=== PATIENT | female | born 1970 | race Caucasian/White ===

== ENCOUNTER 2021-04-05 08:32 | Emergency (ER) | payer OTHER, SELFPAY ==
[2021-04-05 08:40] VITALS: BP 126/77; PULSE 89; RESP 20; TEMP 37.6; O2SAT 98
--- NOTE | 2021-04-05 09:39 | ED.EAR ---
HPI - Ear Problem General Chief complaint: Ear Stated complaint: ear pain Source: patient and RN notes reviewed Mode of arrival: ambulatory History of Present Illness HPI Narrative: This is a 51-year-old female who presented to urgent care complaints bilateral ear pain more severe in the left ear, congestion that started yesterday. Patient did not do anything at home to relieve her symptoms. The patient denies SOB, CP, palpitation, extremity numbness, lightheadedness, dizziness, constipation, decreased hearing, ear discharge, foreign body, diarrhea, chills, or fever. Related Data Allergies Allergy/AdvReac Type Severity Reaction Status Date / Time No Known Allergies Allergy Verified 04/05/21 09:28 Review of Systems Review of Systems: A 14 organ system Review of Systems was performed and pertinent positives included in the HPI, otherwise remaining ROS is negative. [facility] Family History Family History (Updated 04/05/21 @ 09:40 by REJI Dejesus) Other Family history non-contributory Social History Social History Smoking status: Never smoker Alcohol intake: current Exam Narrative: GENERAL: This is a well-nourished, well-developed patient, in no apparent distress. HEAD: normocephalic, atraumatic. EYES: PERRL. Sclera clear/white. Vision is grossly intact. EARS: External ears normal, auditory canals clear and without drainage, TMs erythematous without perforation. Hearing grossly intact. NOSE: External nose normal with no obvious nasal discharge, nares without redness, no rhinorrhea. THROAT: Mucous membranes moist, posterior pharynx clear. NECK: Neck supple, non-tender without lymphadenopathy, masses or thyromegaly. CARDIOVASCULAR: Regular rate and rhythm without murmurs, gallops, or rubs. RESPIRATORY: Clear to auscultation. Breath sounds equal bilaterally. No wheezes, rales, or rhonchi. GASTROINTESTINAL: Abdomen soft, non-tender, nondistended. Bowel sounds are active. No hepato-splenomegaly, or palpable masses. No guarding. SKIN: warm, intact with no suspicious lesions or rash, good texture and turgor. NEURO: awake, alert, and oriented to person, place and time. There were no obvious focal neurologic abnormalities. Steady gait EXTREMITIES: Normal range of motion. No edema. No calf tenderness. Negative Homans sign bilaterally. BACK: Nontender without deformity or crepitance. No flank tenderness. Course Course Emergency Course: Patient will be treated with Augmentin for otitis media to the left ear, she will also be given Tessalon Perles, guaifenesin, Flonase for congestion Vital Signs Vital signs: Vital Signs Temperature 99.6 F 04/05/21 08:40 Pulse Rate 89 04/05/21 08:40 Respiratory Rate 20 04/05/21 08:40 Blood Pressure 126/77 04/05/21 08:40 Pulse Oximetry 98 04/05/21 08:40 Temperature 99.6 F 04/05/21 08:40 Pulse Rate 89 04/05/21 08:40 Respiratory Rate 20 04/05/21 08:40 Blood Pressure 126/77 04/05/21 08:40 Pulse Oximetry 98 04/05/21 08:40 Medical Decision Making Differential Diagnosis Differential Diagnosis: Otitis media, otitis externa, sinusitis Vital Signs Vital Signs: Vital Signs Temperature 99.6 F 04/05/21 08:40 Pulse Rate 89 04/05/21 08:40 Respiratory Rate 20 04/05/21 08:40 Blood Pressure 126/77 04/05/21 08:40 Pulse Oximetry 98 04/05/21 08:40 Temperature 99.6 F 04/05/21 08:40 Pulse Rate 89 04/05/21 08:40 Respiratory Rate 20 04/05/21 08:40 Blood Pressure 126/77 04/05/21 08:40 Pulse Oximetry 98 04/05/21 08:40 Discharge Plan Discharge Clinical Impression: Otitis media Qualifiers: Otitis media type: unspecified Chronicity: acute Qualified Code(s): H66.90 - Otitis media, unspecified, unspecified ear Patient Disposition: Home, Self-Care Condition: Stable Instructions: Antibiotic Form, Ear Infection (ED) Additional Instructions: Take all medicat
== END 2021-04-05 09:55 | disposition home or self-care (01) ==
PROVIDERS: Emergency Provider Nurse Practitioner
DX: H66.93 Otitis media, unspecified, bilateral (principal)
CPT/HCPCS: 99213; G0463

== ENCOUNTER 2021-08-28 08:02 | Emergency (ER) | payer OTHER, SELFPAY ==
--- NOTE | 2021-08-28 08:09 | ED.URI ---
HPI - URI/Sore Throat General Chief Complaint: Upper Respiratory Infection Stated Complaint: Cough Time Seen by Provider: 08/28/21 08:21 Source: patient, RN notes reviewed and old records reviewed Mode of arrival: ambulatory Limitations: no limitations History of Present Illness HPI Narrative: 51-year-old female who presents to [facility] care with complaints of cough especially at nighttime which is keeping her awake since Monday. Patient reports she has been taking DayQuil and NyQuil and some Tylenol, denies any known fevers chills or sweats. Patient denies any shortness of breath or any known wheezing reports she is expectorating some greenish tinged phlegm.Patient has had COVID and has had immunizations, no flu shot taken. Patient did take home COVID test yesterday which was negative. MD elicited complaint: cough and nasal congestion Onset (ago): day(s) (3 days) Consistency: constant Description of mucous: green Able to tolerate fluids by mouth: Yes Exacerbating factors: exertion Relieving factors: nothing Treatments prior to arrival: acetaminophen and cold medicine Related Data Allergies Allergy/AdvReac Type Severity Reaction Status Date / Time No Known Allergies Allergy Verified 04/05/21 09:28 Review of Systems Review of Systems: CONSTITUTIONAL: Denies fever, chills, or sweats. EYES: Denies visual changes, redness, or discharge. ENT: Positive rhinorrhea, congestion,no sore throat, or otalgia. CARDIOVASCULAR: Denies chest pain, palpitations, or edema. RESPIRATORY: positive cough denies dyspnea. GASTROINTESTINAL: Denies abdominal pain, nausea, vomiting, or diarrhea. GENITOURINARY: Denies dysuria or hematuria. SKIN: Denies rash or itching. MUSCULOSKELETAL: Denies back pain, joint pain, or myalgia. NEUROLOGIC: Denies headache, numbness, or weakness. PSYCHIATRIC: Denies anxiety or depression. All systems reviewed & are unremarkable except as noted in HPI and below PMFSH Past Medical History Medical History (Updated 08/28/21 @ 08:33 by Kylee Camacho NP) COVID-19 05/2019 Right arm fracture surgical repair Surgical History Surgical History (Updated 08/28/21 @ 08:17 by Kylee Camacho NP) Previous section Total knee replacement status right Family History Family History (Updated 12/27/21 @ 09:40 by REJI Dejesus) Other Family history non-contributory Social History Social History (Updated 08/28/21 @ 08:44 by Kylee Camacho NP) Smoking status: Never smoker Alcohol intake: current Substance use type: does not use Living arrangements: with family Gender identity (if verbalized by the patient): Female Comments At time of signature, agree with nursing past medical, surgical, social and family history. There is no relevant family history pertinent to the presenting complaint Exam Narrative: GENERAL: Well-appearing, well-nourished, and in no acute distress. HEAD: Normocephalic, atraumatic. EYES: PERRLA and EOMI. ENT: Nares red with clear rhinorrhea no epistaxis. Mucous membranes moist.throat minimal redness with no tonsil enlargement or lesions,post nasal drainage noted. NECK: Supple.no lymphadenopathy CHEST: Clear to auscultation. No respiratory distress.SAO2 98% on room air, cough productive at times unable to rest due to cough. HEART: Regular rate and rhythm. No murmur heard. Normal peripheral pulses. ABDOMEN: Soft, nontender, nondistended, normal active bowel sounds. EXTREMITIES: Normal range of motion. No edema. SKIN: Warm, dry, no rash. NEURO: No focal deficits. Alert and oriented x3. Course Course Level of Care: Express Care Visit Vital Signs Vital signs: Vital Signs Temperature 36.8 C 08/28/21 08:10 Pulse Rate 71 08/28/21 08:10 Respiratory Rate 20 08/28/21 08:10 Blood Pressure 112/74 08/28/21 08:10 Pulse Oximetry 98 08/28/21 08:10 Temperature 36.8 C 08/28/21 08:10 Pulse Rate 71 08/28/21 08:10 Respiratory Rate 20 0
[2021-08-28 08:10] VITALS: BP 112/74; PULSE 71; RESP 20; TEMP 36.8; O2SAT 98
== END 2021-08-28 08:42 | disposition home or self-care (01) ==
PROVIDERS: Emergency Provider Registered Nurse
DX: R05.1 Acute cough (principal); J06.9 Acute upper respiratory infection, unspecified; Z86.16 Personal history of COVID-19
CPT/HCPCS: 99213; G0463

== ENCOUNTER 2022-04-06 09:10 | Outpatient (CLI) | payer OTHER, SELFPAY ==
--- NOTE | ~2022-04-06 | MM_ITS ---
EXAMINATION: MM screening bebe BI w kamlesh HISTORY: Screening mammogram TECHNIQUE: Craniocaudal and mediolateral oblique 3-D tomosynthesis images were obtained and synthetic 2-D images were generated. CAD analysis was submitted and interpreted. COMPARISON: No prior mammogram is available for comparison at this institution. BREAST PARENCHYMAL COMPOSITION: There are scattered areas of fibroglandular density. FINDINGS: There is no evidence of suspicious mass, calcification, or architectural distortion to sugg est malignancy in either breast. There has been no suspicious interval change. IMPRESSION: 1. No mammographic evidence of malignancy. 2. Recommend routine screening mammography in one year. BI-RADS Category 1: Negative Reviewed, dictated and finalized at location A. [place]
== END 2022-04-06 09:11 | disposition home or self-care (01) ==
PROVIDERS: PCP Nurse Practitioner Women's Health; Visit Provider Nurse Practitioner Women's Health
DX: Z12.31 Encounter for screening mammogram for malignant neoplasm of breast (principal)
CPT/HCPCS: 77063; 77067

== ENCOUNTER 2024-03-26 16:23 | Emergency (ER) | payer OTHER, SELFPAY ==
[2024-03-26 16:32] VITALS: BP 134/83; PULSE 72; RESP 16; TEMP 37.2; O2SAT 100
--- NOTE | 2024-03-26 18:11 | ED.GENADULT ---
HPI - General Adult General Stated complaint: Cough Source: patient Mode of arrival: ambulatory Limitations: no limitations History of Present Illness HPI narrative: Patient presents for evaluation of cough for the last 2 days. She indicates cough is very persistent, refractory to multiple doew-eow-tclfhar medications. She denies any fever, chills, shortness of breath, sore throat, otalgia. She does not smoke. No recent sick contacts to her knowledge. Cough is keeping her up at night. Denies leg swelling. No personal or family history of DVT or PE Related Data Allergies Allergy/AdvReac Type Severity Reaction Status Date / Time acetaminophen (From Percocet) Allergy Unknown Unknown Verified 03/26/24 16:33 oxycodone (From Percocet) Allergy Unknown Unknown Verified 03/26/24 16:33 Review of Systems Review of Systems: CONSTITUTIONAL: Denies fever, chills, or sweats. EYES: Denies visual changes, redness, or discharge. ENT: Denies rhinorrhea, congestion, sore throat, or otalgia. CARDIOVASCULAR: Denies chest pain, palpitations, or edema. RESPIRATORY: Reports cough. Denies shortness of breath GASTROINTESTINAL: Denies abdominal pain, nausea, vomiting, or diarrhea. GENITOURINARY: Denies dysuria or hematuria. SKIN: Denies rash or itching. MUSCULOSKELETAL: Denies back pain, joint pain, or myalgia. NEUROLOGIC: Denies headache, numbness, dizziness, or weakness. PSYCHIATRIC: Denies anxiety or depression. [facility] Past Medical History Medical History COVID-19 05/2019 Right arm fracture surgical repair Surgical History Surgical History Previous section Total knee replacement status right Family History Family History Other Family history non-contributory Social History Social History Smoking status: Never smoker Alcohol intake: current Substance use type: does not use Living arrangements: with family Gender identity (if verbalized by the patient): Female Exam Narrative: GENERAL: Well-appearing, well-nourished, and in no acute distress. HEAD: Normocephalic, atraumatic. EYES: PERRLA and EOMI. ENT: Nares clear, no rhinorrhea or epistaxis. Mucous membranes moist. Oropharynx without tonsillar hypertrophy exudate or other lesions. Bilateral TMs pearly zarco nonbulging NECK: Supple. No adenopathy or masses. No carotid bruits or JVD CHEST: Cough present on exam. Clear to auscultation. No respiratory distress. No wheezes rales or rhonchi HEART: Regular rate and rhythm. No murmur heard. Normal peripheral pulses. ABDOMEN: Soft, nontender, nondistended, normal active bowel sounds. EXTREMITIES: Normal range of motion. No edema. SKIN: Warm, dry, no rash. NEURO: No focal deficits. Alert and oriented x3. PSYCH: Normal mood and affect. Course Course Emergency Course: This is a 53-year-old female who presented for evaluation of a cough. There were prolonged wait times at the facility today. Through shared decision making opted to empirically treat for CAP with azithromycin and augmentin as there has been a significant number of cases of pneumonia as of late. Increase hydration. May continue to use OTC agents as needed for symptom management. Follow up with primary provider. Go to the ER for worsening symptoms. Pt in agreement with plan of care. Level of Care: Express Care Visit Vital Signs Vital signs: Vital Signs Temperature 37.2 C 03/26/24 16:32 Pulse Rate 72 03/26/24 16:32 Respiratory Rate 16 03/26/24 16:32 Blood Pressure 134/83 03/26/24 16:32 Pulse Oximetry 100 03/26/24 16:32 Oxygen Delivery Room Air 03/26/24 16:32 Temperature 37.2 C 03/26/24 16:32 Pulse Rate 72 03/26/24 16:32 Respiratory Rate 16 03/26/24 16:32 Blood Pressure 134/83 03/26/24 16:32 Pulse Oximetry 100 03/26/24 16:32 Oxygen Delivery Room Air 03/26/24 16:32 Medical Decision Making Vital Signs Vital Signs: Vital Signs Temperature 37.2 C 03/26/24 16:32 Pulse Rate 72 03/26/24 16:32 Respiratory Rate 16 03/26/24 16:32 Blood Pressure 134/83 03/26/24 16:32 Pulse Oximetry 100 03/26/24 16:32 Oxygen Delivery Room Air 03/26/24 16:32 Temperature 37.2 C 03/26/24 16:32 Pulse Rate 72 03/26/24 16:32 Respiratory Rate 16 03/26/24 16:32 Blood Pressure 134/83 03/26/24 16:32 Pulse Oximetry 100 03/26/24 16:32 Oxygen Delivery Room Air 03/26/24 16:32 Discharge Plan Discharge Clinical Impression: At high risk for pneumonia Patient Disposition: Home, Self-Care Condition: Stable Instructions: Antibiotic Form, Community Acquired Pneumonia (ED) Patient Language: Kittitian Prescriptions: New amoxicillin-pot clavulanate 875-125 mg tablet 1 tablet PO Q12H Qty: 20 0RF azithromycin 250 mg tablet See Rx Instructions .ROUTE .COMPLEX Qty: 6 0RF Rx Instructions: For 250 mg dose pack: take 500 mg today (day 1), then 250 mg for 4 days (days 2-5) No Action prednisone 20 mg tablet 20 mg PO BID Qty: 10 0RF Rx Instructions: Take with food codeine-guaifenesin 10-100 mg/5 mL liquid 5 ml PO Q6H PRN (Reason: cough) Qty: 237 0RF Rx Instructions: do not drive while taking Follow-up/Referrals: Teresa Monreal [Other] Time of Disposition: 18:11
== END 2024-03-26 18:13 | disposition home or self-care (01) ==
PROVIDERS: Emergency Provider Nurse Practitioner
DX: R05.9 Cough, unspecified (principal); Z86.16 Personal history of COVID-19; Z96.651 Presence of right artificial knee joint
CPT/HCPCS: 99213; G0463

== ENCOUNTER 2024-05-08 08:06 | Emergency (ER) | payer OTHER, SELFPAY ==
[2024-05-08 08:12] VITALS: BP 123/67; PULSE 85; RESP 16; TEMP 37.5; O2SAT 98
--- OUTSIDE RECORDS SUMMARY | 2024-05-08 08:19 | XMS_ITS ---
Care Plan - [facility] Created on: May 08, 2024 YUAN TORRES : 1970 Sex: Female Author Organization [facility] Address [address] [place] [address] Phone Care Team Providers Care Air Dispatcher Name Role Phone MIRIAM DHALIWAL, IVETH C Unavailable [phone]
--- OUTSIDE RECORDS SUMMARY | 2024-05-08 08:19 | XMS_ITS | Encounter Summary ---
Author Organization [facility] Address [address] [place] [address] Phone Care Team Providers Care Instant Printer Operator Name Role Phone Teresa Monreal APRN, PRODUCTION LEAD Primary Care Provid er Katja Delarosa APRN, PRODUCTION LEAD Unavailable Rayne Schilling APRN, PRODUCTION LEAD Unavailable [phone] Encounter Details Date Type Department Care Team (Late st Contact Info) Description 01/01/2024 Telephone [facility] [address] [place] [address] Teresa Monreal APRN, PRODUCTION LEAD [address] [address] Social History Tobacco Use Types Packs/Day Years Used Date Smoking Tobacco: Never Smokeless Tobacco: Never Alcohol Use Standard Drinks/Week Comments Yes 0 (1 standard drink = 0.6 oz pur e alcohol) OCCASSIONALLY [facility] Utilities Answer Date Recorded In the past 12 months has e electric, gas, oil, or water company threatened to shut off services in your home? No 05/25/2023 Social Connection and Isolat ion Panel [NHANES] Answer Date Recorded In a typical week, how many times do you talk on the phone with family, friends, or neighbors? More than three times a week 05/25/2023 Frequency of Social Gatherin gs with Friends and Family Not on file 05/25/2023 Attends [employer] Services Not on file 05/25 Active Member of Clubs or Organizations Not on f ile 05/25/2023 Attends Club or Organization Meetings Not on jose armando e 05/25/2023 Marital Status Not on file 05/25/2023 AUDIT-C Answer Date Recorded Q1: How often do you have a drink containing alc ohol? Monthly or less 05/25/2023 Average Number of Drinks Not on file 024 Frequency of Binge Drinking Not on file 05/11 Overall Financial Resource Strain (CARDIA) Answe r Date Recorded How hard is it for you to pa y for the very basics like food, housing, medical care, and heating? Not hard at all 05/25/2023 PHQ-2 Answer Date Recorded Total Score - Questions 1-9 0 05/11 [facility] - Occupational Stress Questionnaire Answer Date Recorded Do you feel stress - tense, restless, nervous, or anxious, or unable to sleep at night because your mind is troubled all the time - these days? Not at all 05/25/2023 Exercise Vital Sign Answer Date Recorde d On average, how many days pe r week do you engage in moderate to strenuous exercise (like a brisk walk)? 0 days 05/25/2023 On average, how many minutes do you engage in exercise at this level? 0 min 05/25/2023 Hunger Vital Sign Answer Date Recorded Within the past 12 months, y ou worried that your food would run out before you got the money to buy more. Never true 05/25/19 24 Ran Out of Food in the Last Year Not on file 05/25/2023 PRAPARE - Transportation Answer Date Re corded In the past 12 months, has l ack of transportation kept you from medical appointments or from getting medications? No 05/25/2023 Lack of Transportation (Non-Medical) Not on file 05/25/2023 Housing Stability Vital Sign Answer Kehinde e Recorded In the last 12 months, was t here a time when you were not able to pay the mortgage or rent on time? No 05/25/2023 [address] of Places Lived in the Last Year Not on f ile 05/25/2023 Unstable Housing in the Last Year Not on file 05/25/2023 Education Answer Date Recorded What is the highest level of school you have completed or the highest degree you have received? Bachelor's degree (e.g., BA, AB, BS) 06/20/2022 Sexually Active Control Partners Comments Yes Male Comments No Sex and Gender Information Value Date Recorded Sex Assigned at Not on file Legal Sex Female 7:06 PM CDT Gender Identity Not on file Sexual Orientation Not on file documented as of this encounter Miscellaneous Notes * Telephone Encounter - Bernie Dumont RN - 01/01/2024 9:25 AM CDT Reached pt and she refused to get scheduled at this time. Pt reported due to money . Pt is aware there are payment plans that can be set up and if she were to change her mind to inform the office and we can help get her scheduled. * Telephone Encounter - Teresa Monreal APRN, CNP - 01/01/2024 8:26 AM CDT Please attempt to contact patient as scheduling is trying to contact her. * Telephone Encounter - Deana Dorman - 01/01/2024 8:20 AM CDT Closing referral SITUATION: Referral center requesting provider review MRI ABDOMEN W/WO CONTRAST Referral. BACKGROUND: Referral unable to be processed. ASSESSMENT: Request for provider review due to the following reason(s): Patient refusal or unable to contact patient. Can re open once patient responds Deana Dorman [facility] - Referrals opt 7 documented in this encounter Plan of Treatment Upcoming Encounters Date Type Department Care Team (Late st Contact Info) Description 12/17/2024 8:00 AM CDT Office Visit [facility] - Pulmonology & Sleep Medicine - [place] [address] [place] [address] Rayne Schilling APRN, QUIQUE [address] [facility] [address] [place] [address] documented as of this encounter Visit Diagnoses Not on filedocumented in this encounter Additional Health Concerns Assessment Noted Time PHQ-9 Depression Total Score: 0 05/25/19 24 9:14 AM [employer]JOR GIFTS OFFICER documented as of this encounter Care Teams Instant Printer Operator Relationship Specialty Start Date End Date Teresa Monreal APRN, [facility] [address] [facility] [place] [address] PCP - General Advanced Practice Nurse 05/04/20 Katja Delarosa APRN, QUIQUE [address] [place] [id number] Obstetrics & Gynecology 05/04/20 Rayne Schilling APRN, Q[facility] [address] [address] Nurse Practitioner Advanced Practice Nurse 08/05/22 documented as of this encounter
--- OUTSIDE RECORDS SUMMARY | 2024-05-08 08:19 | XMS_ITS | Clinical Summary ---
Author Organization [facility] Address [address] [facility], [address] [address] Phone Care Team Providers Care Soaping Machine Back Tender Name Role Phone Teresa Monreal APRN, CLINICAL BIOCHEMIST Primary Care Provid er Katja Delarosa APRN, CLINICAL BIOCHEMIST Unavailable [phone] Rayne Schilling APRN, CLINICAL BIOCHEMIST Unavailable Allergies Active Allergy Reactions Criticality Noted Date Comments Oxycodone-Acetaminophen Hallucinations High 11/14/19 19 Medications Phentermine HCl 15 MG Capsule Take 15 mcg by mouth daily. 3 Active traMADol (ULTRAM) 50 MG TabletIndicatio ns:Suprapubic pain Take 1 Tablet by mouth every 6 hours as needed for Severe pain. 12 Tablet 4 Active Additional Information Patient not taking.Reported on 06/13/2023 Active Problems Problem Noted Date Diagnosed Date KEON (obstructive sleep apnea) 08/05/2022 Class 1 obesity due to exces s calories without serious comorbidity with body mass index (BMI) of 34.0 to 34.9 in adult 08/05/2022 Immunizations Immunization Administration Dates Next Due TDAP Vaccine 04/16/2019 Family History Medical History Relation Name Comments No Known Problems Father Breast Cancer Maternal Grandmother No Known Problems Mother Relation Name Status Comments Father Alive Maternal Grandfather Maternal Grandmother Mother Alive Paternal Grandfather Paternal Grandmother Social History Tobacco Use Types Packs/Day Years Used Date Smoking Tobacco: Never Smokeless Tobacco: Never Tobacco Cessation:Counseling Given: Not Answered Alcohol Use Standard Drinks/Week Comments Yes 0 (1 standard drink = 0.6 oz pur e alcohol) OCCASSIONALLY [facility] Utilities Answer Date Recorded In the past [...] and Family Not on file 05/25/2023 Attends [employer] Not on file 05/25 Active Member [...] Total Score - Questions 1-9 0 05/11 [facility] - Occupational Stress [...] on file Sexual Orientation Not on file Last Filed Vital Signs Vital Sign Reading Time Taken Comments Blood Pressure 128/74 01/02/2024 8:06 AM CDT Pulse 74 01/02/2024 8:06 AM CDT Temperature 36.6 ??C (97.8 ??F) 01/02/2024 8:06 AM CD T Respiratory Rate 14 01/02/2024 8:06 AM CDT Oxygen Saturation 97% 01/02/2024 8:06 AM CDT Inhaled Oxygen Concentration - - Weight 92.6 kg (204 lb 3.2 oz) 01/02/2024 8:06 A M CDT Height 167.6 cm (5' 6 ) 01/02/2024 8:06 AM CDT Body Mass Index 32.96 01/02/2024 8:06 AM CDT Plan of Treatment Upcoming Encounters Date Type Department Care Team (Late st Contact Info) Description 12/17/2024 8:00 AM CDT Office Visit [facility] - Pulmonology & Sleep Medicine - [address] [place] [id number] Rayne Schilling, HANDS ASSEMBLER, CLINICAL BIOCHEMIST [address] [facility] [address] [place] [address] Health Maintenance Due Date Last Done Comments Hepatitis C Virus (HCV) Screening 1968 Hepatitis B Immunization (1 of 3 - 19+ 3-dose series) 1987 Cologuard 2018 Pneumococcal Immunization (50+ years) (1 of 1 - PCV) 2018 Zoster Immunization (1 of 2) 2018 Immunochemical Fecal Occult Blood 10/16/2020 10/17/2019 Pap Smear 10/21/2022 10/22/2019, 12/2019, 08/01/2018 Influenza Immunization (#1) 2023 SARS-COV-2 Immunization ( season) 2023 07/20/2020, 06/22/2020 Cervical Cancer Screening ([facility]S) 10/21/2024 HPV/Cotest 10/21/2024 10/22/2019, 08/01/2018 Colonoscopy 01/09/2025 01/10/2020 Colorectal Cancer Screening 01/09/2025 Mammogram 05/25/2025 05/25/2023, 11/08, 11/19/2019, Additional history exists Td Immunization Every 10 Years (Adults With 1 Tdap) 04/16/2029 04/16/2019 Respiratory Syncytial Virus (RSV) Immunization (Adult) (1 - 1-dose 75+ series) 2043 01/10/2020 DTaP/Tdap/Td Immunization Discontinued 04/16/2019 Meningococcal Immunization (ACWY) Aged Out No longer eligible based on patient's age to complete this topic Pneumococcal Immunization Combined Aged Out No longer eligible based on patient's age to complete this topic Rotavirus Immunization Aged Out No lo nger eligible based on patient's age to complete this topic Procedures Procedure Name Priority Date/Time Associated Diagnosis Comments GHANSHYAM SCREENING BILATERAL DIGI LUBNA W CAD Routine 11/19/2019 HUMAN PAPILLOMA VIRUS (HPV) HIGH RISK 16/18 Routine 10/22/2019 PATHOLOGY CYTOLOGY PIECE MAKER Routine 10/22/2019 from Last 3 Months or Most Recently Relevant to Health Maintenance Results * GHANSHYAM SCREENING BILATERAL DIGITAL W CAD (11/19/2019) Anatomical Region Laterality Modality breast Bilateral Mammography Katja Delarosa APRN, CNP IMG MAMMO ORDERABLES Fi nal Result * HUMAN PAPILLOMA VIRUS (HPV) HIGH RISK 16/18 (10/22/2019) Other Katja Delarosa APRN, CNP LAB SEND OUTS Final R esult * PATHOLOGY CYTOLOGY PIECE MAKER (10/22/2019) Other Katja Delarosa APRN, CNP PATHOLOGY/CYTOLOGY ORDE RABLES Final Result from Last 3 Months or Most Recently Relevant to Health Maintenance Insurance [employer] Care Teams Soaping Machine Back Tender Relationship Specialty Start Date End Date Teresa Monreal APRN, QUQIUE [address] [facility] [address] [place] [address] PCP - General Advanced Practice Nurse 05/04/20 Katja Delarosa APRN, CLINICAL BIOCHEMIST [address] [place] [id number] Obstetrics & Gynecology 05/04/20 Rayne Schilling APRN, QUIQUE [address] [facility] [address] [place] [address] Nurse Practitioner Advanced Practice Nurse 08/05/22
--- OUTSIDE RECORDS SUMMARY | 2024-05-08 08:19 | XMS_ITS | Clinical Summary ---
Author Organization [facility] Address [address] [place] [phone] Care Team Providers Care Household Personal Assistant Name Role Phone Teresa Monreal NP Primary Care Provider + Roly Ayala MD Unavailable [phone] Allergies Active Allergy Reactions Criticality Noted Date Comments Oxycodone-Acetaminophen Hallucinations Medium Reaction: Medications phentermine 15 mg capsule TAKE 1 CAPSULE BY MOUTH DAILY FOR 14 DAYS. 3 Active ferrous sulfate 325 mg (65 mg of elemental iron) tabletIndicatio ns:Iron Deficiency Anemia Take 1 tablet (325 mg total) by mouth daily with breakfast Active ascorbic acid (ascorbic acid with adrian hips) 500 mg tablet,chewable daily Acti ve aspirin (Ecotrin) 325 mg enteric coated tabletIndicatio ns:prevention of thrombosis Take 1 tablet (325 mg total) by mouth daily 42 tablet 4 Active celecoxib (CeleBREX) 200 mg capsuleIndicati ons:Postoperati ve Acute Pain Take 1 capsule (200 mg total) by mouth 2 (two) times a day 84 capsule 4 Active Additional Information Patient not taking.Reported on 09/27/2023 ondansetron (ZOFRAN) 8 mg tabletIndicatio ns:Prevention of Post-Operative Nausea and Vomiting Take 1 tablet (8 mg total) by mouth every 8 (eight) hours as needed for nausea or vomiting 20 tablet 2 4 Active Additional Information Patient not taking.Reported on 09/27/2023 senna-docusate (PERICOLACE) 8.6-50 mg Take 1 tablet by mouth 2 (two) times a day as needed for constipation 60 tablet 2 4 Active Additional Information Patient not taking.Reported on 09/27/[address] (VOLTAREN) 75 mg EC tablet TAKE 1 TABLET BY MOUTH TWICE A DAY WITH MEALS FOR 30 DAYS 4 Active amoxicillin (AMOXIL) 500 mg tablet/capsule Take 4 tablets one hour prior to dental procedure 4 tablet/capsu le 2 4 Active Active Problems Problem Noted Date Diagnosed Date Aftercare following left knee joint replacement surgery 08/21/2023 Disorder of vein 12/26/2011 Resolved Problems Problem Noted Date Diagnosed Date Resolved Date Primary osteoarthritis of left knee 06/29/2023 08/21/2023 Surgical History Surgery Date Site/Laterality Comments JOINT REPLACEMENT Right knee 2014 SECTION 1996 KNEE ARTHROSCOPY Medical History Medical History Date Comments PONV (postoperative nausea and vomiting) Family History Medical History Relation Name Comments Diabetes Father Relation Name Status Comments Father Social History Tobacco Use Types Packs/Day Years Used Date Smoking Tobacco: Never Smokeless Tobacco: Never Alcohol Use Standard Drinks/Week Comments Yes 0 (1 standard drink = 0.6 oz pur e alcohol) AUDIT-C Answer Date Recorded Q1: How often do you have a drink containing alc ohol? 2-4 times a month 07/05/2023 Q2: How many drinks containi ng alcohol do you have on a typical day when you are drinking? 1 or 2 07/05/2023 Q3: How often do you have si x or more drinks on one occasion? Never 07/05/2023 Overall Financial Resource Strain (CARDIA) Answe r Date Recorded Difficulty of Paying Living Expenses Patient dec lined 02/25/2020 Hunger Vital Sign Answer Date Recorded Worried About Running Out of Food in the Last Ye ar Patient declined 02/25/2020 Ran Out of Food in the Last Year Patient decline d 02/25/2020 PRAPARE - Transportation Answer Date Re corded Lack of Transportation (Medical) Patient decline d 02/25/2020 Lack of Transportation (Non-Medical) Patient dec lined 02/25/2020 Personal Safety Answer Date Recorded Have you ever been in or are you currently in a harmful physical or emotional relationship or is someone making you feel afraid or unsafe? 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 file Not on file Not on file Obstetrics History Para Term AB IAB SAB Ectopic Multiple Livin g Live Births 2 2 2 Date Outcome GA Total Labor Labor/2nd/3rd Weight Sex Type Anes PTL Sulma A1 A5 Name Clin Term Term Last Filed Vital Signs Vital Sign Reading Time Taken Comments Blood Pressure 121/78 09/27/2023 2:41 PM CDT Pulse 75 09/27/2023 2:41 PM CDT Temperature 37 ??C (98.6 ??F) 07/05/2023 2:48 PM CDT Respiratory Rate 18 07/05/2023 2:48 PM CDT Oxygen Saturation 98% 07/05/2023 2:48 PM CDT Inhaled Oxygen Concentration - - Weight 89.4 kg (197 lb) 09/27/2023 2:41 PM CDT Height 166.4 cm (5' 5.5 ) 09/27/2023 2:41 PM CDT Body Mass Index 32.28 09/27/2023 2:41 PM CDT Plan of Treatment Health Maintenance Due Date Last Done Comments Cervical Cancer Screening 1968 Colon Cancer Screening-Colonoscopy 1968 Depression Screening 1968 Hepatitis C Screening 1968 Hepatitis B Screening 1986 Regular Well Visit/Exam 18-64 1986 Zoster Vaccine (1 of 2) 2018 Influenza Vaccine (#1) 2023 Breast Cancer Screening-Mammogram 05/25/2024 05/25/2023, 05/25/2023, 11/29/2016 DTaP/Tdap/Td Vaccine (2 - Td or Tdap) 04/16/2029 04/16/2019 Pneumococcal vaccine <65 Aged Out No longer eligible based on patient's age to complete this topic Medical Devices Implanted Type Area Energy Projects Lead Device Identifier Shelf Expiration Date Model / Serial / Lot [employer] Attune Fb Tib Base Sz 4 Por [id number] - [id number] Implanted:Qty: 1 on 07/05/2023 by Roly Ayala MD at [facility] Left: Knee [employer] [id number] 05/10/2033 [id number] / / [id number] [employer] Component Femoral Knee Porous Posterior Stabilized Narrow Left Attune Size 5 [employer] [id number] - [id number] Implanted:Qty: 1 on 07/05/2023 by Roly Ayala MD at [facility] Left: Knee [employer] 08/07/2030 [id number] / / [id number] [employer] Attune 7mm Posterior Stabilize Fix Bearing Knee 5 Insert Tibial [id number] - [id number] Implanted:Qty: 1 on 07/05/2023 by Roly Ayala MD at [facility] Left: Knee [employer] [id number] 01/08/2028 [id number] / / [id number] Procedures Procedure Name Priority Date/Time Associated Diagnosis Comments SCREENING MAMMOGRAM BILATERAL W NINO Schedule Routine, Read Routine (OP Routine) 05/25/2023 1:35 PM PLUMBING MECHANIC Encounter for screening mammogram for malignant neoplasm of breast from Last 3 Months or Most Recently Relevant to Health Maintenance Results * (ABNORMAL) Screening Mammogram Bilateral W Nino (05/25/2023 1:35 PM PLUMBING MECHANIC) Anatomical Region Laterality Modality Breast Bilateral Mammography 06/09/2023 7:18 AM PLUMBING MECHANIC Addenda Addendum by Emmanuel Cole MD on 06/15/2023 8:33 AM PLUMBING MECHANIC ADDENDUM: Previous outside hospital screening mammograms dated 04/06/2022 and 11/29/2016 have been made available for review. ?? The finding of concern in the right breast was present in 2021, and stability greater than 2 years is consistent with benignity. However, the finding of concern in the left breast is new compared to 2021, and further evaluation with left diagnostic mammogram and sonogram is still required. Electronically signed by: EMMANUEL HOLLY Impressions 06/09/2023 7:18 AM PLUMBING MECHANIC 1. ??Indeterminate bilateral breast asymmetries. ??Further evaluation with bilateral diagnostic mammogram and possible sonogram recommended. BI-RADS: 0 - Additional imaging evaluation is necessary. The patient has been or will be contacted. Electronically signed by: EMMANUEL MOROCHO MARCELLO HOLLY Narrative 06/09/2023 7:18 AM PLUMBING MECHANIC EXAMINATION: SCREENING MAMMOGRAM BILATERAL W NINO ORDERING HEALTHCARE PROVIDER: IVETH MITCHELL HISTORY: Routine screening mammography. COMPARISON: ??None available. TECHNIQUE: CC and MLO views of both breasts were obtained with digital technique using digital breast tomosynthesis with C view. Computer aided detection was utilized. FINDINGS: DENSITY: The breasts have scattered areas of fibroglandular density. BREASTS: There is a small focal asymmetry in the lower inner right breast at middle depth. ??There is also a small asymmetry in the outer left breast at posterior depth on CC view. ??No other suspicious findings are seen in either breast. Iveth Mitchell MD IMG MAMMO PROCEDURES Edited R esult - Final from Last 3 Months or Most Recently Relevant to Health Maintenance Insurance [facility] H[facility]/PPO Address: [facility] [address] [place] [address] [facility] PL[facility] H[facility]/PPO Address: [address] [address] [place] [address] [facility]US [facility] H[facility]/PPO Address: [address] [address] [place] [address] Care Teams Household Personal Assistant Relationship Specialty Start Date End Date Teresa Monreal NP [address] [address] PCP - General Nurse Practitioner 09/08/20 Roly Ayala MD [address] [place] [address] DR RUSSO [address] [place] [id number] Surgeon Orthopedic Surgery 07/05/23
--- OUTSIDE RECORDS SUMMARY | 2024-05-08 08:19 | XMS_ITS | Clinical Summary ---
Author Organization [facility] Address [address] [place] [address] Phone Care Team Providers Care Moss Gatherer Name Role Phone MIRIAM DHALIWAL, IVETH Drummond Unavailable [phone] Reason for Visit and Chief Complaint gynecologic annual exam - The Chief Complaint is: WWE Problems Includes: Problems addressed during this encounter and other active Problems All Visits Onset Date Resolved Date Provider Condition S tatus Coronavirus Covid-19 Infection 01/20/2021 GALE GARVIN RN SHMUEL Active Last Documented On 1 10:17AM ; [facility] Plan of Treatment - Weight loss diet - Last Documented On 01/24/2022 8:45AM ; [facility] - Clinical summary provided to patient - Last Documented On 01/24/2022 8:45AM ; [facility] PT TO CALL WITH ANY CHANGE IN STATUS ALL QUESTIONS ANSWERED WITH UNDERSTANDING VERBALIZED BY PT. - Last Documented On 01/24/2022 8:45AM ; [facility] Pending Tests Order Diagnosis Results Due Ordering P rovider Radiology @ other - Ultrasound Pelvic U/S w/TVT (TransVag) Endometrial hyperplasia, unspecified 02/07/22 GALE GARVIN RN SHMUEL Last Documented On 3 1:52PM ; [facility] Instructions to patient Instructed to call if excess herminia bleeding or abdominal/pelvic pain Last Documented On 2 8:23AM ; [facility] Instructions For Patient: Mo nthly Self Breast Exam Last Documented On 2 8:23AM ; [facility] Recommend diet and exercise at least 30 min three times per week Last Documented On 2 8:23AM ; [facility] Education and Decision Aids were provided during visit for: Patient Education: Daily kenny cium and vitamin D Last Documented On 2 8:23AM ; [facility] Assessments Includes: Assessments from this encounter Findings - NORMAL FEMALE EXAM - Last Documented On 01/24/2022 8:45AM ; [facility] - Endometrial hyperplasia h/o - Last Documented On 01/24/2022 8:45AM ; [facility] - Screen malignant neoplasm cervix - Last Documented On 01/24/2022 8:45AM ; [facility] Instructions Includes: Instructions from this encounter Instructions to patient Instructed to call if excess herminia bleeding or abdominal/pelvic pain Last Documented On 2 8:23AM ; [facility] Instructions For Patient: Mo nthly Self Breast Exam Last Documented On 2 8:23AM ; [facility] Recommend diet and exercise at least 30 min three times per week Last Documented On 2 8:23AM ; [facility] Education and Decision Aids were provided during visit for: Patient Education: Daily kenny cium and vitamin D Last Documented On 2 8:23AM ; [facility] Medical Equipment - Implanted Devices Includes: Current Devices No Medical Equipment Recorded Medications Includes: Medications discussed during this encounter and other current Medications Past Medications on file medroxyPROGESTERone Acetate 10 MG Oral Tablet 12/05/2019 - 02/03/2020 Provider: GALE GARVIN RN SHMUEL BC Diagnosis: Postmenopausal b leeding One tablet daily ONE TAB BRYSON LY FIRST 10 DAYS OF EACH MONTH WITH FOOD Last Documented On 0 8:14AM By GALE CHAN ; [facility] Naproxen 500 MG Oral Tablet 11/28/2019 - 12/03/2019 Provider: GALE MONTIEL BC Diagnosis: Postmenopausal b leeding One tablet twice a day USE A S DIRECTED W/FOOD DON'T EXCEED 2 IN 24 HOURS Last Documented On 0 3:10PM By GALE CHAN ; [facility] Medications Administered Includes: Administered Medications from this encounter No Administered Medications Recorded Vital Signs Includes: Vital Signs from this encounter Vital Name 01/24/2022 08:14A Blood Pressure Sitting L 112/78 BP Cuff Size Regular Temp-Oral (F) 97.1 Height (in) 66 Weight (lb) 214 Body Mass Index 34.5 Body Surface Area 2.1 Last Documented: On 01/24/2022 8:17AM ; [facility] Results Includes: Results discussed during this encounter No Results Recorded For Specified Dates History of Present Illness Includes: History of Present Illness from this encounter HPI - Allergy list reviewed - Medication list reviewed - Primary Care Provider: Jocelin Social History Description Last Updated Personal history in remission fo r brain cancer 01/24/2022 Last Documented On 2 8:45AM ; [facility] A social drinker 01/24/2022 Last Documented On 2 8:45AM ; [facility] Alcohol use: 2 drinks or less per day Last Documented On 2 8:45AM ; [facility] Caffeine use 01/24/2022 Last Documented On 2 8:45AM ; [facility] Daily tea consumption 01/24/2022 Last Documented On 2 8:45AM ; [facility] Education history 01/24/2022 Last Documented On 2 8:45AM ; [facility] Educational level 01/24/2022 Last Documented On 2 8:45AM ; [facility] Marital history 01/24/2022 Last Documented On 2 8:45AM ; [facility] Not a smoker 01/24/2022 Last Documented On 2 8:45AM ; [facility] Not using drugs 01/24/2022 Last Documented On 2 8:45AM ; [facility] Sexually active 01/24/2022 Last Documented On 2 8:45AM ; [facility] Social history unchanged 01/24/2022 Last Documented On 2 8:45AM ; [facility] Tobacco non-user 01/24/2022 Last Documented On 2 8:45AM ; [facility] Not using alcohol 01/24/2022 Last Documented On 2 8:45AM ; [facility] Sexually active with 1 partners in the l ast year 01/24/2022 Last Documented On 2 8:45AM ; [facility] Smoking Status Unknown Procedures and Surgical History Includes: Procedures from this encounter Procedures Code Diagnosis Performing Provider Service L ocation Service Date education and instructions Last Documented On 2 8:23AM ; [facility] explanation of plan Pt to co ntams insurance for coverage on pelvic U/S and call if another dx. needed to obtain scan Last Documented On 2 8:44AM ; [facility] medical regimen review Last Documented On 2 8:23AM ; [facility] Urged Exercise and Diet , exercise at ast 30 min three times per week Last Documented On 2 8:23AM ; [facility] a mammogram was performed 02/2021 Last Documented On 2 8:13AM ; [facility] cervical Pap smear 25413 Last Documented On 2 8:23AM ; [facility] history of cervical Pap smear 01/2021 42629 Last Documented On 2 8:13AM ; [facility] a colonoscopy was performed 01/2020 Last Documented On 2 8:13AM ; [facility] Surgical History Last Updated Surgical / procedural histor y knee surgery ~shoulder surgery ~LTCS ~RIGHT KNEE REPLACEMENT 10/2106/18/2014 Last Documented On 2 8:12AM ; [facility] Recent change to surgical history RIGHT KNEE REPLACEMENT 10/2106/18/2014 Last Documented On 2 8:12AM ; [facility] Medical History Includes: Medical History addressed during this encounter Description Last Updated Result: normal 01/25/2023 Last Documented On 2 8:12AM ; [facility] A mammogram was performed 01/25/2023 Last Documented On 2 8:12AM ; [facility] History of colonoscopy fiberoptic was pe rformed 01/10/2020 01/25/2023 Last Documented On 2 8:12AM ; [facility] History of screening mammogram was perfo rmed 02/202101/24/2022 Last Documented On 2 8:45AM ; [facility] Last mammogram date: 02/202101/24/2022 Last Documented On 2 8:45AM ; [facility] Last pap smear date 01/202101/24/2022 Last Documented On 2 8:45AM ; [facility] LMP: 09/09/2019 10/17/2019 Last Documented On 2 8:12AM ; [facility] Sexually active one partner 10/17/2019 Last Documented On 2 8:12AM ; [facility] Contraception: vasectomy 05/09/2011 Last Documented On 2 8:12AM ; [facility] 2 05/09/2011 Last Documented On 2 8:12AM ; [facility] Para 2 05/09/2011 Last Documented On 2 8:12AM ; [facility] knee surgery 05/13/2009 Last Documented On 2 8:12AM ; [facility] 2 living children 05/13/2009 Last Documented On 2 8:12AM ; [facility] Partner with vasectomy 05/13/2009 Last Documented On 2 8:12AM ; [facility] Family History Includes: Family History addressed during this encounter Description Last Updated Maternal grandmother's histo ry of malignant female breast neoplasm MATERNAL GRANDMOTHER 06/30/2016 Last Documented On 2 8:12AM ; [facility] Paternal history of diabetes mellitus FA THER 06/23/2015 Last Documented On 2 8:12AM ; [facility] Family history of diabetes mellitus FATH ER 06/18/2014 Last Documented On 2 8:12AM ; [facility] Family history of malignant female breas t neoplasm MATERNAL GRANDMOTHER 06/18/2014 Last Documented On 2 8:12AM ; [facility] Family history unchanged 06/18/2014 Last Documented On 2 8:12AM ; [facility] Review of Systems Includes: Review of Systems from this encounter Systemic: Not tiring easily. No fever, no chills, no unusual bleeding, and no recent weight change. No pain. Head: No headache. Neck: No neck pain and no swollen glands in the neck. Eyes: No vision problems. Breasts: No breast symptoms, no breast lump, no pain in breast, and patient performs self breast exams. Cardiovascular: No chest pain or discomfort and no palpitations. Pulmonary: No pulmonary symptoms, no dyspnea, no cough, and no wheezing. Gastrointestinal: No heartburn. No nausea, no vomiting, no abdominal pain, no diarrhea, and no constipation. Genitourinary: No change in urinary frequency and no incomplete emptying of bladder. No urinary loss of control and no dysuria. No genital lesion, no pain during intercourse, and no vaginal dryness. No nonmenstrual bleeding. No vaginal discharge. Endocrine: No polydipsia, no hot flashes, and libido has not changed. Musculoskeletal: No back pain, no muscle aches, and no localized joint pain. Neurological: No dizziness. Psychological: No anxiety, no depression, and a desire to continue living. Skin: No pruritus. No skin lesions and no rash. Mental Status Includes: Mental Status from this encounter Description Oriented to time, place, and person No anxiety A desire to continue living Functional Status Includes: Functional Status from this encounter No Functional Status Recorded Physical Exam Includes: Physical Exam from this encounter Allergies Includes: Active Allergies No Known Allergies Encounters Encounter Provider Location Date Check-In Time Check-Out Time Diagnosis [facility] - ESTABLISHED PT GALE MONTIEL [facility] 01/25/20 22 8:09AM 8:45AM Screen Malignant Neoplasm Cervix,Normal Female Exam,Endometri al Hyperplasia Insurance Includes: Active Insurance Policies Plan Name Member ID Group # Subscriber Relationship Effect herminia Dates 1 - [facility] [id number] YUAN kowalski Clinical Notes Includes: Clinical Notes from this encounter No Clinical Notes Recorded
--- OUTSIDE RECORDS SUMMARY | 2024-05-08 08:19 | XMS_ITS ---
Author Organization [facility] Address [address] [place] [address] Phone Care Team Providers Care Spring Layer Name Role Phone MIRIAM DHALIWAL, IVETH Drummond Unavailable [phone] Problems Includes: Active, inactive, and resolved Problems All Visits Onset Date Resolved Date Provider Condition S tatus Coronavirus Covid-19 Infection 01/20/2021 GALE GARVIN RN [facility] Active Last Documented On 1 10:17AM ; [facility] Breast Lump Or Mass Right 05/27/2013 Unknown CA YULI GARVIN RN [facility] Resolved Last Documented On 06/18/2014 3:57PM ; [facility] Note: Unchanged - 5:00 6 CM FROM [facility] R BREAST MAMMOGRAM INDICATES CYST Plan of Treatment Findings Encounter Date Ordered Clinical summary pro vided to patient WELL WOMAN - ESTABLISHED PT with GALE GARVIN RN [facility] 01/25/2023 Last Documented On 3 8:54AM ; [facility] Ordered weight loss diet WELL WOMAN - ES TABLISHED PT with GALE GARVIN RN [facility] 01/25/2023 Last Documented On 3 8:54AM ; [facility] Ordered Clinical summary pro vided to patient WELL WOMAN - ESTABLISHED PT with GALE GARVIN RN [facility] 01/24/2022 Last Documented On 2 8:45AM ; [facility] Ordered weight loss diet WELL WOMAN - ES TABLISHED PT with GALE GARVIN RN [facility] 01/24/2022 Last Documented On 2 8:45AM ; [facility] Ordered Clinical summary pro vided to patient WELL WOMAN - ESTABLISHED PT with GALE Edith VIRGIE GALEANO [facility] 01/20/2021 Last Documented On 1 10:24AM ; [facility] Ordered weight loss diet WELL WOMAN - ES TABLISHED PT with GALE MCDUFFIEMARGIE GALEANO [facility] 01/20/2021 Last Documented On 1 10:24AM ; [facility] Ordered Clinical summary pro vided to patient ANNUAL FIRST AID DIRECTOR EXAM with GALE MCDUFFIEMARGIE GALEANO [facility] 10/17/2019 Last Documented On 0 5:00PM ; [facility] Ordered Clinical summary pro vided to patient FRONT DESK OFFICER EXAM with GALE Sharma VIRGIE GALEANO [facility] 07/25/2018 Last Documented On 9 8:30AM ; [facility] Ordered Clinical summary pro vided to patient ANNUAL FIRST AID DIRECTOR EXAM with GALE Edith VIRGIE GALEANO [facility] 07/03/2017 Last Documented On 8 4:12PM ; [facility] Ordered Clinical summary pro vided to patient FRONT DESK OFFICER EXAM with GALE MCDUFFIEMARGIE GALEANO [facility] 06/30/2016 Last Documented On 7 4:02PM ; [facility] Ordered Clinical summary pro vided to patient ANNUAL FIRST AID DIRECTOR EXAM with GALE Sharma VIRGIE GALEANO [facility] 06/23/2015 Last Documented On 6 4:19PM ; [facility] Ordered Clinical summary pro vided to patient FRONT DESK OFFICER EXAM with GALE Sharma VIRGIE GALEANO [facility] 06/18/2014 Last Documented On 5 4:02PM ; [facility] Ordered Clinical summary pro vided to patient BREAST EXAM with GALE Sharma VIRGIE GALEANO [facility] 05/21/2013 Last Documented On 4 3:42PM ; [facility] Referrals To Diagnosis Breast Specialist ROBBIN ANDREW MD - [facility] - [id number] [place] [id number] - LUMP OR MASS IN BREAST Note: EVALUATE R BREAST MASS 5:00 6 CM FROM [facility] BREAST U/S INDICATES BENIGN SIMPLE CYST [facility]GM BREAST CANCER Last Documented On 4 1:29PM ; [facility] Fittings Tightener JUSTIN LOYA MD - [facility] - [address] [place] [id number] - Encounter for screening, unspecified Note: darling Lee for this exam Last Documented On 0 1:37PM ; [facility] Instructions to patient Instructed to call if excess herminia bleeding or abdominal/pelvic pain Last Documented On 3 8:33AM ; [facility] Instructions For Patient: Mo nthly Self Breast Exam Last Documented On 3 8:33AM ; [facility] Recommend diet and exercise at least 30 min three times per week Last Documented On 3 8:33AM ; [facility] Instructed to call if excess herminia bleeding or abdominal/pelvic pain Last Documented On 2 8:23AM ; [facility] Instructions For Patient: Mo nthly Self Breast Exam Last Documented On 2 8:23AM ; [facility] Recommend diet and exercise at least 30 min three times per week Last Documented On 2 8:23AM ; [facility] Instructed to call if excess herminia bleeding or abdominal/pelvic pain Last Documented On 1 9:30AM ; [facility] Instructions For Patient: Mo nthly Self Breast Exam Last Documented On 1 9:30AM ; [facility] Recommend diet and exercise at least 30 min three times per week Last Documented On 1 9:30AM ; [facility] Intervention and counseling on cessation of tobacco use Last Documented On 0 8:13AM ; [facility] Lose weight Last Documented On 0 8:13AM ; [facility] Instructed to call if excess herminia bleeding or abdominal/pelvic pain Last Documented On 0 3:02PM ; [facility] Patient may take Motrin OTC PRN as directed Last Documented On 0 3:02PM ; [facility] Instructions for patient ER if dizzy, vomiting or light-headed due to heavy bleeding Last Documented On 0 4:58PM ; [facility] Instructions for patient : p atient is to keep a menstrual diary to help with further evaluation and treatment Last Documented On 0 4:58PM ; [facility] Instructions for patient ER if bleeding through reg. sized pad/tampon < 1 hour Last Documented On 0 4:58PM ; [facility] Instructed to call if excess herminia bleeding or abdominal/pelvic pain Last Documented On 0 3:47PM ; [facility] Instructions For Patient: Mo nthly Self Breast Exam Last Documented On 0 3:47PM ; [facility] Recommend diet and exercise at least 30 min three times per week Last Documented On 0 3:47PM ; [facility] Instructed to call if excess herminia bleeding or abdominal/pelvic pain Last Documented On 9 8:10AM ; [facility] Instructions For Patient: Mo nthly Self Breast Exam Last Documented On 9 8:10AM ; [facility] Recommend diet and exercise at least 30 min three times per week Last Documented On 9 8:10AM ; [facility] Instructed to call if excess herminia bleeding or abdominal/pelvic pain Last Documented On 8 3:48PM ; [facility] Instructions For Patient: Mo nthly Self Breast Exam Last Documented On 8 3:48PM ; [facility] Recommend diet and exercise at least 30 min three times per week Last Documented On 8 3:48PM ; [facility] Instructed to call if excess herminia bleeding or abdominal/pelvic pain Last Documented On 7 3:54PM ; [facility] Instructions For Patient: Mo nthly Self Breast Exam Last Documented On 7 3:54PM ; [facility] Recommend diet and exercise at least 30 min three times per week Last Documented On 7 3:54PM ; [facility] Instructions for patient : B reast Self Exam discussed and technique reviewed Last Documented On 6 4:07PM ; [facility] Instructed to call if excess herminia bleeding or abdominal/pelvic pain Last Documented On 6 4:07PM ; [facility] Recommend diet and exercise at least 30 min three times per week Last Documented On 6 4:07PM ; [facility] Instructions for patient : B reast Self Exam discussed and technique reviewed Last Documented On 5 3:48PM ; [facility] Instructed to call if excess herminia bleeding or abdominal/pelvic pain Last Documented On 5 3:48PM ; [facility] Recommend diet and exercise at least 30 min three times per week Last Documented On 5 3:48PM ; [facility] Instructions for patient : B reast Self Exam discussed Last Documented On 2 3:46PM ; [facility] Instructions for patient : B reast Self Exam discussed Last Documented On 1 2:44PM ; [facility] Education and Decision Aids were provided during visit for: Patient Education: Daily kenny cium and vitamin D Last Documented On 3 8:33AM ; [facility] Patient Education: Daily kenny cium and vitamin D Last Documented On 2 8:23AM ; [facility] Patient Education: Daily kenny cium and vitamin D Last Documented On 1 9:30AM ; [facility] INFORMED CONSENT DISCUSSION: Endometrial biopsy was discussed in detail including discomfort, insufficient specimen with need to repeat test, and rare incidence of uterine perforation. Patient expressed understanding of the above and consented to the procedure Last Documented On 0 3:02PM ; [facility] Patient Education: Daily kenny cium and vitamin D Last Documented On 0 3:47PM ; [facility] Patient Education: Daily kenny cium and vitamin D Last Documented On 9 8:10AM ; [facility] Patient Education: Daily kenny cium and vitamin D Last Documented On 8 3:48PM ; [facility] Patient Education: Daily kenny cium and vitamin D Last Documented On 7 3:54PM ; [facility] Patient Education: Daily kenny cium and vitamin D Last Documented On 6 4:07PM ; [facility] Patient Education: Daily kenny cium and vitamin D Last Documented On 5 3:48PM ; [facility] Patient education : Last Documented On 2 3:46PM ; [facility] STD screening offered and de clined Last Documented On 2 3:46PM ; [facility] Patient education : Last Documented On 1 2:44PM ; [facility] STD screening offered and de clined Last Documented On 1 2:44PM ; [facility] Assessments Includes: Assessments for all patient encounters Findings Encounter Date NORMAL FEMALE EXAM WELL WOMAN - ESTABLI SHED PT with GALE GARVIN RN [facility] 01/25/2023 Last Documented On 3 8:54AM ; [facility] Screen malignant neoplasm cervix WELL WO MAN - ESTABLISHED PT with GALE GARVIN RN [facility] 01/25/2023 Last Documented On 3 8:54AM ; [facility] [Endometrial hyperplasia, un specified] endometrial hyperplasia h/o WELL WOMAN - ESTABLISHED PT with GALE GARVIN RN [facility] 01/24/2022 Last Documented On 2 8:45AM ; [facility] NORMAL FEMALE EXAM WELL WOMAN - ESTABLI SHED PT with GALE GARVIN RN [facility] 01/24/2022 Last Documented On 2 8:45AM ; [facility] Screen malignant neoplasm cervix WELL WO MAN - ESTABLISHED PT with GALE GARVIN RN [facility] 01/24/2022 Last Documented On 2 8:45AM ; [facility] NORMAL FEMALE EXAM WELL WOMAN - ESTABLI SHED PT with GALE GARVIN RN [facility] 01/20/2021 Last Documented On 1 10:24AM ; [facility] Screen malignant neoplasm cervix WELL WO MAN - ESTABLISHED PT with GALE GARVIN RN [facility] 01/20/2021 Last Documented On 1 10:24AM ; [facility] Postmenopausal bleeding CHART UPDATE with GALE GARVIN RN [facility] 12/05/2019 Last Documented On 0 8:11AM ; [facility] Endometrial hyperplasia PROCEDURE OFFICE with RONI GARVIN RN [facility] 11/28/2019 Last Documented On 0 3:21PM ; [facility] Postmenopausal bleeding PROCEDURE OFFICE with RONI GARVIN RN [facility] 11/28/2019 Last Documented On 0 3:21PM ; [facility] Endometrial hyperplasia CHART UPDATE with GALE GARVIN RN [facility] 11/20/2019 Last Documented On 0 12:53PM ; [facility] Postmenopausal bleeding CHART UPDATE with GALE GARVIN RN [facility] 11/20/2019 Last Documented On 0 12:53PM ; [facility] Dysfunctional uterine bleeding ANNUAL PM P EXAM with GALE GARVIN RN [facility] 10/17/2019 Last Documented On 0 5:00PM ; [facility] NORMAL FEMALE EXAM ANNUAL FIRST AID DIRECTOR EXAM with GALE GARVIN RN [facility] 10/17/2019 Last Documented On 0 5:00PM ; [facility] Screen malignant neoplasm cervix ANNUAL FIRST AID DIRECTOR EXAM with GALE GARVIN RN [facility] 10/17/2019 Last Documented On 0 5:00PM ; [facility] NORMAL FEMALE EXAM FRONT DESK OFFICER EXAM with GALE Perez [facility] 07/25/2018 Last Documented On 9 8:30AM ; [facility] Screen malignant neoplasm cervix FRONT DESK OFFICER EXAM with Bhanu GARVIN RN [facility] 07/25/2018 Last Documented On 9 8:30AM ; [facility] NORMAL FEMALE EXAM ANNUAL FIRST AID DIRECTOR EXAM with GALE GARVIN RN [facility] 07/03/2017 Last Documented On 8 4:12PM ; [facility] Screen malignant neoplasm cervix ANNUAL FIRST AID DIRECTOR EXAM with GALE GARVIN RN [facility] 07/03/2017 Last Documented On 8 4:12PM ; [facility] NORMAL FEMALE EXAM FRONT DESK OFFICER EXAM with GALE Perez [facility] 06/30/2016 Last Documented On 7 4:02PM ; [facility] Screen malignant neoplasm cervix FRONT DESK OFFICER EXAM with Bhanu GARVIN RN [facility] 06/30/2016 Last Documented On 7 4:02PM ; [facility] NORMAL FEMALE EXAM ANNUAL FIRST AID DIRECTOR EXAM with GALE GARVIN RN [facility] 06/23/2015 Last Documented On 6 4:19PM ; [facility] MAMMOGRAM SCREENING FRONT DESK OFFICER EXAM with GALE GARVIN RN [facility] 06/18/2014 Last Documented On 5 4:02PM ; [facility] Routine gynecological exam FRONT DESK OFFICER EXAM with GALE GARVIN RN [facility] 06/18/2014 Last Documented On 5 4:02PM ; [facility] Lump or mass in the right breast CHART U PDATE with GALE GARVIN RN [facility] 05/27/2013 Last Documented On 4 11:43AM ; [facility] Lump or mass in the right breast BREAST EXAM wit h GALE GARVIN RN [facility] 05/21/2013 Last Documented On 4 3:42PM ; [facility] Routine pelvic exam FRONT DESK OFFICER EXAM with AMBAR HOPSON MD 05/09/2011 Last Documented On 2 4:00PM ; [facility] Routine pelvic exam FRONT DESK OFFICER EXAM with AMBAR HOPSON MD 05/06/2010 Last Documented On 1 2:45PM ; [facility] Instructions Includes: Instructions for all patient encounters Instructions to patient Instructed to call if excess herminia bleeding or abdominal/pelvic pain Last Documented On 3 8:33AM ; [facility] Instructions For Patient: Mo nthly Self Breast Exam Last Documented On 3 8:33AM ; [facility] Recommend diet and exercise at least 30 min three times per week Last Documented On 3 8:33AM ; [facility] Instructed to call if excess herminia bleeding or abdominal/pelvic pain Last Documented On 2 8:23AM ; [facility] Instructions For Patient: Mo nthly Self Breast Exam Last Documented On 2 8:23AM ; [facility] Recommend diet and exercise at least 30 min three times per week Last Documented On 2 8:23AM ; [facility] Instructed to call if excess herminia bleeding or abdominal/pelvic pain Last Documented On 1 9:30AM ; [facility] Instructions For Patient: Mo nthly Self Breast Exam Last Documented On 1 9:30AM ; [facility] Recommend diet and exercise at least 30 min three times per week Last Documented On 1 9:30AM ; [facility] Intervention and counseling on cessation of tobacco use Last Documented On 0 8:13AM ; [facility] Lose weight Last Documented On 0 8:13AM ; [facility] Instructed to call if excess herminia bleeding or abdominal/pelvic pain Last Documented On 0 3:02PM ; [facility] Patient may take Motrin OTC PRN as directed Last Documented On 0 3:02PM ; [facility] Instructions for patient ER if dizzy, vomiting or light-headed due to heavy bleeding Last Documented On 0 4:58PM ; [facility] Instructions for patient : p atient is to keep a menstrual diary to help with further evaluation and treatment Last Documented On 0 4:58PM ; [facility] Instructions for patient ER if bleeding through reg. sized pad/tampon < 1 hour Last Documented On 0 4:58PM ; [facility] Instructed to call if excess herminia bleeding or abdominal/pelvic pain Last Documented On 0 3:47PM ; [facility] Instructions For Patient: Mo nthly Self Breast Exam Last Documented On 0 3:47PM ; [facility] Recommend diet and exercise at least 30 min three times per week Last Documented On 0 3:47PM ; [facility] Instructed to call if excess herminia bleeding or abdominal/pelvic pain Last Documented On 9 8:10AM ; [facility] Instructions For Patient: Mo nthly Self Breast Exam Last Documented On 9 8:10AM ; [facility] Recommend diet and exercise at least 30 min three times per week Last Documented On 9 8:10AM ; [facility] Instructed to call if excess herminia bleeding or abdominal/pelvic pain Last Documented On 8 3:48PM ; [facility] Instructions For Patient: Mo nthly Self Breast Exam Last Documented On 8 3:48PM ; [facility] Recommend diet and exercise at least 30 min three times per week Last Documented On 8 3:48PM ; [facility] Instructed to call if excess herminia bleeding or abdominal/pelvic pain Last Documented On 7 3:54PM ; [facility] Instructions For Patient: Mo nthly Self Breast Exam Last Documented On 7 3:54PM ; [facility] Recommend diet and exercise at least 30 min three times per week Last Documented On 7 3:54PM ; [facility] Instructions for patient : B reast Self Exam discussed and technique reviewed Last Documented On 6 4:07PM ; [facility] Instructed to call if excess herminia bleeding or abdominal/pelvic pain Last Documented On 6 4:07PM ; [facility] Recommend diet and exercise at least 30 min three times per week Last Documented On 6 4:07PM ; [facility] Instructions for patient : B reast Self Exam discussed and technique reviewed Last Documented On 5 3:48PM ; [facility] Instructed to call if excess herminia bleeding or abdominal/pelvic pain Last Documented On 5 3:48PM ; [facility] Recommend diet and exercise at least 30 min three times per week Last Documented On 5 3:48PM ; [facility] Instructions for patient : B reast Self Exam discussed Last Documented On 2 3:46PM ; [facility] Instructions for patient : B reast Self Exam discussed Last Documented On 1 2:44PM ; [facility] Education and Decision Aids were provided during visit for: Patient Education: Daily kenny cium and vitamin D Last Documented On 3 8:33AM ; [facility] Patient Education: Daily kenny cium and vitamin D Last Documented On 2 8:23AM ; [facility] Patient Education: Daily kenny cium and vitamin D Last Documented On 1 9:30AM ; [facility] INFORMED CONSENT DISCUSSION: Endometrial biopsy was discussed in detail including discomfort, insufficient specimen with need to repeat test, and rare incidence of uterine perforation. Patient expressed understanding of the above and consented to the procedure Last Documented On 0 3:02PM ; [facility] Patient Education: Daily kenny cium and vitamin D Last Documented On 0 3:47PM ; [facility] Patient Education: Daily kenny cium and vitamin D Last Documented On 9 8:10AM ; [facility] Patient Education: Daily kenny cium and vitamin D Last Documented On 8 3:48PM ; [facility] Patient Education: Daily kenny cium and vitamin D Last Documented On 7 3:54PM ; [facility] Patient Education: Daily kenny cium and vitamin D Last Documented On 6 4:07PM ; [facility] Patient Education: Daily kenny cium and vitamin D Last Documented On 5 3:48PM ; [facility] Patient education : Last Documented On 2 3:46PM ; [facility] STD screening offered and de clined Last Documented On 2 3:46PM ; [facility] Patient education : Last Documented On 1 2:44PM ; [facility] STD screening offered and de clined Last Documented On 1 2:44PM ; [facility] Medical Equipment - Implanted Devices Includes: Current and historical Devices No Medical Equipment Recorded Medications Includes: Current and historical Medications Past Medications on file medroxyPROGESTERone Acetate 10 MG Oral Tablet 12/05/2019 - 02/03/2020 Provider: GALE GARVIN RN [facility] Diagnosis: Postmenopausal b leeding One tablet daily ONE TAB BRYSON LY FIRST 10 DAYS OF EACH MONTH WITH FOOD Last Documented On 0 8:14AM By GALE GARVIN HENRIK ; [facility] Naproxen 500 MG Oral Tablet 11/28/2019 - 12/03/2019 Provider: GALE GARVIN RN [facility] Diagnosis: Postmenopausal b leeding One tablet twice a day USE A S DIRECTED W/FOOD DON'T EXCEED 2 IN 24 HOURS Last Documented On 0 3:10PM By GALE GARVIN HENRIK ; [facility] Medications Administered Includes: Administered Medications in patient's chart No Administered Medications Recorded Results Includes: Results from 05/08/2023 through 05/08/2024 No Results Recorded For Specified Dates History of Present Illness History of Present Illness not supported for this document type No History of Present Illness Recorded Social History Description Last Updated A social drinker 01/25/2023 Last Documented On 3 8:54AM ; [facility] Alcohol use: 2 drinks or less per day Last Documented On 3 8:54AM ; [facility] Caffeine use 01/25/2023 Last Documented On 3 8:54AM ; [facility] Daily tea consumption 01/25/2023 Last Documented On 3 8:54AM ; [facility] Education history 01/25/2023 Last Documented On 3 8:54AM ; [facility] Educational level 01/25/2023 Last Documented On 3 8:54AM ; [facility] Marital history 01/25/2023 Last Documented On 3 8:54AM ; [facility] Not a smoker 01/25/2023 Last Documented On 3 8:54AM ; [facility] Not using alcohol 01/25/2023 Last Documented On 3 8:54AM ; [facility] Not using drugs 01/25/2023 Last Documented On 3 8:54AM ; [facility] Personal history in remission fo r brain cancer 01/25/2023 Last Documented On 3 8:54AM ; [facility] Sexually active 01/25/2023 Last Documented On 3 8:54AM ; [facility] Sexually active with 1 partners in the l ast year 01/25/2023 Last Documented On 3 8:54AM ; [facility] Social history unchanged 01/25/2023 Last Documented On 3 8:54AM ; [facility] Tobacco non-user 01/25/2023 Last Documented On 3 8:54AM ; [facility] Not exercising regularly 01/25/2023 Last Documented On 3 8:54AM ; [facility] Smoking Status Unknown Procedures and Surgical History Surgical History Last Updated Surgical / procedural histor y knee surgery ~shoulder surgery ~LTCS ~RIGHT KNEE REPLACEMENT 10/2106/18/2014 Last Documented On 5 4:02PM ; [facility] Recent change to surgical history RIGHT KNEE REPLACEMENT 10/2106/18/2014 Last Documented On 5 4:02PM ; [facility] Medical History Includes: Medical History in patient's chart Description Last Updated Primary Care Provider: Teresa Monreal 01/25/2023 Last Documented On 3 8:54AM ; [facility] Last pap smear date 01/24/2022 3 Last Documented On 3 8:54AM ; [facility] Result: normal 01/25/2023 Last Documented On 3 8:54AM ; [facility] A mammogram was performed 01/25/2023 Last Documented On 3 8:54AM ; [facility] section 01/25/2023 Last Documented On 3 8:54AM ; [facility] Vaginal delivery 01/25/2023 Last Documented On 3 8:54AM ; [facility] History of diaignostic fiberoptic colono scopy 201901/25/2023 Last Documented On 3 8:54AM ; [facility] History of screening mammogram was perfo rmed 03/202201/25/2023 Last Documented On 3 8:54AM ; [facility] Last mammogram date: 02/202101/24/2022 Last Documented On 2 8:45AM ; [facility] LMP: 09/09/2019 10/17/2019 Last Documented On 0 5:00PM ; [facility] Sexually active one partner 10/17/2019 Last Documented On 0 5:00PM ; [facility] Patient recently had a dexa scan 019 Last Documented On 9 8:30AM ; [facility] Contraception: vasectomy 05/09/2011 Last Documented On 2 4:00PM ; [facility] 2 05/09/2011 Last Documented On 2 4:00PM ; [facility] Para 2 05/09/2011 Last Documented On 2 4:00PM ; [facility] knee surgery 05/13/2009 Last Documented On 0 10:40AM ; [facility] 2 living children 05/13/2009 Last Documented On 0 10:40AM ; [facility] Partner with vasectomy 05/13/2009 Last Documented On 0 10:40AM ; [facility] Family History Includes: Family History in patient's chart Description Last Updated Maternal grandmother's histo ry of malignant female breast neoplasm MATERNAL GRANDMOTHER 06/30/2016 Last Documented On 7 4:02PM ; [facility] Paternal history of diabetes mellitus FA THER 06/23/2015 Last Documented On 6 4:19PM ; [facility] Family history of diabetes mellitus FATH ER 06/18/2014 Last Documented On 5 4:02PM ; [facility] Family history of malignant female breas t neoplasm MATERNAL GRANDMOTHER 06/18/2014 Last Documented On 5 4:02PM ; [facility] Family history unchanged 06/18/2014 Last Documented On 5 4:02PM ; [facility] Review of Systems Review of Systems not supported for this document type No Review of Systems Recorded Mental Status No Mental Status Recorded Functional Status No Functional Status Recorded Physical Exam Physical Exam not supported for this document type No Physical Exam Recorded Allergies Includes: Active, inactive, and resolved Allergies No Known Allergies Encounters Includes: Encounters from 05/08/2023 through 05/08/2024 Encounter Provider Location Date Check-In Time Check-Out Time Diagnosis CHART UPDATE GALE HERNANDEZ 06/09/2023 01/25/2023 12:39PM 01/25/2023 11:59PM Insurance Includes: Active Insurance Policies Plan Name Member ID Group # Subscriber Relationship Effect herminia Dates 1 - [facility] [id number] YUAN kowalski Clinical Notes Includes: Signed Clinical Notes starting from 04/29/2022 * Progress note Date Encounter Last Documented by 06/09/2023 CHART UPDATE Last documented on 06/09/2023; 12:48 PM, GALE MONTIEL ; [facility] Active Problems & Conditions - U07.1 - Coronavirus Covid-19 Infection - Z80.3 - Family History of Breast Neoplasm Malignant Female - MGM Current Medication - None Past Medical/Surgical History Other: Primary Care Provider: Teresa Monreal Reported: LMP: 09/09/2019, Last pap smear date 01/24/2022 result: normal, Last mammogram date: 02/2021, Contraception: vasectomy, and partner with vasectomy. Surgical / Procedural: Surgical / procedural history knee surgery shoulder surgery LTCS RIGHT KNEE REPLACEMENT 10/21. Recent change to surgical history RIGHT KNEE REPLACEMENT 10/21. Tests: A mammogram was performed and patient recently had a dexa scan. : 2, para 2 having 2 living children, history of the : vaginal delivery, and section. Sexual: Sexually active one partner. Other: Diaignostic fiberoptic colonoscopy 2019. Screening mammogram was performed 03/2022 Knee surgery. Allergies - No Known Allergies Family History Family history unchanged Diabetes mellitus FATHER Malignant female breast neoplasm MATERNAL GRANDMOTHER Paternal: Diabetes mellitus FATHER Maternal grandmother's: Malignant female breast neoplasm MATERNAL GRANDMOTHER Plan StartCited - Other Breast Followup Pleas efax orders BRITTNEY and see other task about contacting [facility] radiology. Thanks EndCited StartCited - Other signs and symptoms in breast Radiology @ other/Ultrasound: Breast Ultrasound Instructions: bilateral scan R breast lower inner quad focal asymmetry middle depth and L breast outer quad asymmetry posterior depth on CC view Radiology @ other/*MAMMOGRAPHY: Diagnostic Mammography Instructions: Additional images/ultrasounds if indicated Please send to PCP R breast focal asymmetry lower inner quad middle depth and L breast outer quad asymmetry posterior depth on CC view EndCited Health Reminders - Colorectal Cancer Screening satisfied 06/09/2023. - Mammogram satisfied 06/09/2023.
--- OUTSIDE RECORDS SUMMARY | 2024-05-08 08:19 | XMS_ITS | Clinical Summary ---
Author Organization [facility] Address [address] [place] [address] Phone Care Team Providers Care Seismology Teacher Name Role Phone MIRIAM DHALIWAL, IVETH Drummond Unavailable [phone] Reason for Visit and Chief Complaint CHART UPDATE Problems Includes: Problems addressed during this encounter and other active Problems All Visits Onset Date Resolved Date Provider Condition S tatus Coronavirus Covid-19 Infection 01/20/2021 GALE GARVIN RN SHMUEL Active Last Documented On 1 10:17AM ; [facility] Plan of Treatment Pending Tests Order Diagnosis Results Due Ordering Provider Ultrasound (OB) - ULTRASOUND Pelvic w/TVT (TransVag) Postmenopausal bleeding 03/10/20 GALE GARVIN RN SHMUEL Last Documented On 1 10:49AM ; [facility] Assessments Includes: Assessments from this encounter Findings - Postmenopausal bleeding - Last Documented On 12/05/2019 8:11AM ; [facility] Medical Equipment - Implanted Devices Includes: Current Devices No Medical Equipment Recorded Medications Includes: Medications discussed during this encounter and other current Medications New / Renewed during this visit GALE MONTIEL on 12/05/2019 medroxyPROGESTERone Acetate 10 MG Oral Tablet Provider: GALE MONTIEL BC 10 day supply: 10 tablet, 5 refills Diagnosis: Postmenopausal bleeding One tablet daily ONE TAB BRYSON LY FIRST 10 DAYS OF EACH MONTH WITH FOOD Pharmacy: [facility] [address] , [place], [address] - Last Documented On 0 8:14AM By GALE CHAN ; [facility] Past Medications on file Naproxen 500 MG Oral Tablet 11/28/2019 - 12/03/2019 Provider: GALE HERNANDEZ Diagnosis: Postmenopausal b leeding One tablet twice a day USE A S DIRECTED W/FOOD DON'T EXCEED 2 IN 24 HOURS Last Documented On 0 3:10PM By GALE CHAN ; [facility] Medications Administered Includes: Administered Medications from this encounter No Administered Medications Recorded Results Includes: Results discussed during this encounter PATHOLOGY SPECIMEN [facility] La boratory Ordered by GALE GARVIN RN SHMUEL on 11/28/2019 [address] [facility], [place], [address] Collected: 11/28/2019 Report ed: 12/05/2019 06:49 tel: Last Documented On 0 8:11AM ; [facility] Reviewed by GALE GARVIN RN SHMUEL on 12/05/2019; All test results are final unless otherwise noted. PATH YES None Last Documented On 12/05/2019 7:32AM ; [facility] Note: Responsible Observer: (KAREN) PATHOLOGY SPECIMEN See Note None Last Documented On 12/05/2019 7:32AM ; [facility] Note: Performing Lab: [address] [address]Accession #: [id number]/Age/Gender: 1970 (Age: 49) / FProcedure Date: 11/28/2019SPECIMEN(S) RECEIVEDA:Endometrium, curettageOTHER CASE [id number] PATHOLOGIC DIAGNOSISA. Endometrium, curettage: - Inactive-appearing endometrium with tubal metaplasia and focal breakdownchanges - See commentCOMMENTSSections show both intact and detached fragments of inactive-appearingendometrium with tubal metaplasia. Occasional foci consistent with breakdownchanges are seen. In the intact fragments, no evidence of endometrialhyperplasia is identified. No overt evidence of malignancy seen; however,within the detached fragments, evaluation of endometrial architecture islimited. Clinical correlation is recommended.ELECTRONICALLY VERIFIED BY JUSTIN GRAVES MD12/04/2019 15:17CLINICAL HISTORYPostmenopausal bleeding.GROSS DESCRIPTIONThe specimen container(s) and requisition have the same patient name. Receivedin formalin labeled endometrial biopsy is a 1.8 x 1.6 x 0.2 cm aggregate ofmucoid houser soft tissue which is submitted as A1.kpb/12/02/2019END OF REPORTResponsible Observer: (KAREN) History of Present Illness Includes: History of Present Illness from this encounter No History of Present Illness Recorded Social History No Social History Recorded - Smoking Status Unknown Procedures and Surgical History Surgical History Last Updated Surgical / procedural histor y knee surgery ~shoulder surgery ~LTCS ~RIGHT KNEE REPLACEMENT 10/2106/18/2014 Last Documented On 0 7:56AM ; [facility] Recent change to surgical history RIGHT KNEE REPLACEMENT 10/2106/18/2014 Last Documented On 0 7:56AM ; [facility] Medical History Includes: Medical History addressed during this encounter Description Last Updated Last pap smear date 10/17/2019 01/25/2023 Last Documented On 0 7:56AM ; [facility] Result: normal 01/25/2023 Last Documented On 0 7:56AM ; [facility] A mammogram was performed 01/25/2023 Last Documented On 0 7:56AM ; [facility] Last mammogram date: 11/19/2019 2 Last Documented On 0 7:56AM ; [facility] Result: normal 11/28/2019 Last Documented On 0 7:56AM ; [facility] History of Pap smear done 07/25/2018 07/0 12/2019 Last Documented On 0 7:56AM ; [facility] LMP: 09/09/2019 10/17/2019 Last Documented On 0 7:56AM ; [facility] Sexually active one partner 10/17/2019 Last Documented On 0 7:56AM ; [facility] Patient recently had a dexa scan 019 Last Documented On 0 7:56AM ; [facility] Result: abnormal Ascus 07/03/2017 Last Documented On 0 7:56AM ; [facility] No recent change in medical history 04/12 Last Documented On 0 7:56AM ; [facility] Contraception: vasectomy 05/09/2011 Last Documented On 0 7:56AM ; [facility] 2 05/09/2011 Last Documented On 0 7:56AM ; [facility] Para 2 05/09/2011 Last Documented On 0 7:56AM ; [facility] knee surgery 05/13/2009 Last Documented On 0 7:56AM ; [facility] 2 living children 05/13/2009 Last Documented On 0 7:56AM ; [facility] Partner with vasectomy 05/13/2009 Last Documented On 0 7:56AM ; [facility] Family History Includes: Family History addressed during this encounter Description Last Updated Maternal grandmother's histo ry of malignant female breast neoplasm MATERNAL GRANDMOTHER 06/30/2016 Last Documented On 0 7:56AM ; [facility] Paternal history of diabetes mellitus FA THER 06/23/2015 Last Documented On 0 7:56AM ; [facility] Family history of diabetes mellitus FATH ER 06/18/2014 Last Documented On 0 7:56AM ; [facility] Family history of malignant female breas t neoplasm MATERNAL GRANDMOTHER 06/18/2014 Last Documented On 0 7:56AM ; [facility] Family history unchanged 06/18/2014 Last Documented On 0 7:56AM ; [facility] Review of Systems Includes: Review of Systems from this encounter No Review of Systems Recorded Mental Status Includes: Mental Status from this encounter No Mental Status Recorded Functional Status Includes: Functional Status from this encounter No Functional Status Recorded Physical Exam Includes: Physical Exam from this encounter No Physical Exam Recorded Allergies Includes: Active Allergies No Known Allergies Encounters Encounter Provider Location Date Check-In Time Check-Out Time Diagnosis CHART UPDATE GALE MONTIEL 12/05/19 20 7:56AM 11:59PM Postmenopausal Bleeding Insurance Includes: Active Insurance Policies Plan Name Member ID Group # Subscriber Relationship Effect herminia Dates 1 - [facility] [id number] YUAN kowalski Clinical Notes Includes: Clinical Notes from this encounter No Clinical Notes Recorded
--- OUTSIDE RECORDS SUMMARY | 2024-05-08 08:19 | XMS_ITS | Referral Summary ---
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 Not on file Not on file Not on file Last Filed Vital Signs [...] 09/27/2023 2:41 PM CDT Plan of Treatment Not on file Medical Devices Implanted Type Area Electrician Manager Device Identifier Shelf Expiration Date Model / Serial / Lot [employer] Attune Fb Tib Base Sz 4 Por [id number] - [id number] Implanted:Qty: 1 on 07/05/2023 by Roly Ayala MD at [facility] Left: Knee [employer] [id number] 05/10/2033 [id number] / / [id number] [employer] Component Femoral Knee Porous Posterior Stabilized Narrow Left Attune Size 5 [place] [employer] [id number] - [id number] Implanted:Qty: 1 on 07/05/2023 by Roly Ayala MD at [facility] Left: Knee [employer] 08/07/2030 [id number] / / [id number] [employer] Attune 7mm Posterior Stabilize Fix Bearing Knee 5 Insert Tibial [id number] - [id number] Implanted:Qty: 1 on 07/05/2023 by Roly Ayala MD at [facility] Left: Knee [employer] [id number] 01/08/2028 [id number] / / [id number] Procedures Procedure Name Priority Date/Time Associated Diagnosis Comments SCREENING MAMMOGRAM BILATERAL W NINO Schedule Routine, Read Routine (OP Routine) 05/25/2023 1:35 PM 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 ??Indeterminate bilateral breast asymmetries. ??Further evaluation with bilateral diagnostic mammogram and possible sonogram recommended. BI-RADS: 0 - Additional imaging evaluation is necessary. The patient has been or will be contacted. Electronically signed by: EMMANUEL HOLLY Narrative 06/09/2023 7:18 AM BRICK EXTRUDER OPERATOR EXAMINATION: SCREENING MAMMOGRAM BILATERAL W NINO ORDERING [...] Most Recently Relevant to Health Maintenance Insurance [employer] CHOICE [employer] [facility] Address: [address] [place] [address] [facility] Address: [place] [address] [employer] [facility] Address: [place] [address] Care Teams Pin Inserter Relationship Specialty Start Date End Date Teresa Monreal NP [address] [place] [address] PCP - General Nurse Practitioner 09/08/20 Roly Ayala MD [address] [place] [address] DR RUSSO [address] [place] [id number] Surgeon Orthopedic Surgery 07/05/23
--- OUTSIDE RECORDS SUMMARY | 2024-05-08 08:19 | XMS_ITS | Clinical Summary ---
Author Organization [facility] Address [address] [place] [address] Phone Care Team Providers Care Nursing Technician Name Role Phone MIRIAM DHALIWAL, IVETH Drummond Unavailable [phone] Reason for Visit and Chief Complaint gynecologic annual exam - The Chief Complaint is: WWE, no problems Problems Includes: Problems addressed during this encounter and other active Problems Current Visit Onset Date Resolved Date Provider Liana miller Status Coronavirus Covid-19 Infection 01/20/2021 GALE GARVIN RN SHMUEL Active Last Documented On 1 10:17AM ; [facility] Plan of Treatment - Weight loss diet - Last Documented On 01/20/2021 10:24AM ; [facility] - Clinical summary provided to patient - Last Documented On 01/20/2021 10:24AM ; [facility] PT TO CALL WITH ANY CHANGE IN STATUS ALL QUESTIONS ANSWERED WITH UNDERSTANDING VERBALIZED BY PT. - Last Documented On 01/20/2021 10:24AM ; [facility] Pending Tests Order Diagnosis Results Due Ordering P rovider Radiology @ other DEXA (to be scheduled) Asymptomatic menopausal state 02/03/21 GALE GARVIN RN SHMUEL Last Documented On 2 8:38AM ; [facility] Radiology @ other - Ultrasound Pelvic w/TVT (TransVag) Endometrial hyperplasia, unspecified 02/03/21 GALE GARVIN RN SHMUEL Last Documented On 2 8:38AM ; [facility] Instructions to patient Instructed to call if excess herminia bleeding or abdominal/pelvic pain Last Documented On 9:30AM ; [facility] Instructions For Patient: Mo nthly Self Breast Exam Last Documented On 9:30AM ; [facility] Recommend diet and exercise at least 30 min three times per week Last Documented On 9:30AM ; [facility] Education and Decision Aids were provided during visit for: Patient Education: Daily kenny cium and vitamin D Last Documented On 9:30AM ; [facility] Assessments Includes: Assessments from this encounter Findings - NORMAL FEMALE EXAM - Last Documented On 01/20/2021 10:24AM ; [facility] - Screen malignant neoplasm cervix - Last Documented On 01/20/2021 10:24AM ; [facility] Instructions Includes: Instructions from this encounter Instructions to patient Instructed to call if excess herminia bleeding or abdominal/pelvic pain Last Documented On 9:30AM ; [facility] Instructions For Patient: Mo nthly Self Breast Exam Last Documented On 9:30AM ; [facility] Recommend diet and exercise at least 30 min three times per week Last Documented On 9:30AM ; [facility] Education and Decision Aids were provided during visit for: Patient Education: Daily kenny cium and vitamin D Last Documented On 9:30AM ; [facility] Medical Equipment - Implanted Devices Includes: Current [...] On 0 8:14AM By GALE CHAN ; [facility] Naproxen 500 MG Oral Tablet 11/28/2019 - 12/03/2019 Provider: GALE MONTIEL BC Diagnosis: Postmenopausal b leeding One tablet twice a day USE A S DIRECTED W/FOOD DON'T EXCEED 2 IN 24 HOURS Last Documented On 0 3:10PM By GALE CHAN ; [facility] Medications Administered Includes: Administered Medications from this encounter No Administered Medications Recorded Vital Signs Includes: Vital Signs from this encounter Vital Name 01/20/2021 09:14A Blood Pressure Sitting L 118/82 BP Cuff Size Regular Temp-Oral (F) 98.2 Height (in) 66 Weight (lb) 204 Body Mass Index (kg/m2) 32.9 Body Surface Area (m2) 2.0 Last Documented: On 01/20/2021 9:18AM ; [facility] Results Includes: Results discussed during this encounter PATHOLOGY SPECIMEN [facility] La boratory Ordered by GALE GARVIN RN [facility] on 11/28/2019 [address] [facility], [place], [address] Collected: 11/28/2019 Report ed: 12/05/2019 06:49 tel: Last Documented On 0 8:11AM ; [facility] Reviewed by GALE GARVIN RN SHMUEL on 12/05/2019; All test results are final unless otherwise noted. PATHOLOGY SPECIMEN See Note None Last Documented On 12/05/2019 7:32AM ; [facility] Note: Performing Lab: [place] [id number] #: [id number]/Age/Gender: 1970 (Age: 49) / FProcedure Date: 11/28/2019SPECIMEN(S) RECEIVEDA:Endometrium, curettageOTHER CASE [id number] PATHOLOGIC DIAGNOSISA. Endometrium, curettage: - Inactive-appearing endometrium [...] submitted as A1.kpb/12/02/2019END OF REPORTResponsible Observer: (KAREN) [facility]. Ordered by GALE GARVIN RN [facility] on 0 10/17/2019 Collected: 10/18/2019 Reported: 10/19/19 20 05:32 Last Documented On 0 3:27PM ; [facility] Reviewed by GALE GARVIN RN SHMUEL on 10/21/2019; All test results are final unless otherwise noted. FSH 111.6 mIU/mL N (Normal) Last Documented On 10/21/2019 3:27PM ; [facility] Note: Reference Range Follicular Phase 2.5-10.2 Mid-cycle Peak 3.1-17.7 Luteal Phase 1.5- 9.1 Postmenopausal 23.0-116.3 History of Present Illness Includes: History of Present Illness from this encounter HPI - Allergy list reviewed - Medication reconciliation performed Pt unable to verify if she took Provera x 3 cycles after EMB in 2019 for PMB and endometrial hyperplasia, or if she had repeat U/S, as her suffered a brain hemorrhage just after her procedure. Pt admits last fall was a blur but denies any further PMB Social History Description Last Updated A social drinker 01/20/2021 Last Documented On 10:24AM ; [facility] Alcohol use: 2 drinks or less per day Last Documented On 10:24AM ; [facility] Caffeine use 01/20/2021 Last Documented On 1 10:24AM ; [facility] Daily tea consumption 01/20/2021 Last Documented On 10:24AM ; [facility] Education history 01/20/2021 Last Documented On 10:24AM ; [facility] Educational level 01/20/2021 Last Documented On 10:24AM ; [facility] Marital history 01/20/2021 Last Documented On 10:24AM ; [facility] Not a smoker 01/20/2021 Last Documented On 10:24AM ; [facility] Not using drugs 01/20/2021 Last Documented On 10:24AM ; [facility] Personal history 01/20/2021 Last Documented On 10:24AM ; [facility] Sexually active 01/20/2021 Last Documented On 10:24AM ; [facility] Social history unchanged 01/20/2021 Last Documented On 10:24AM ; [facility] Tobacco non-user 01/20/2021 Last Documented On 10:24AM ; [facility] Smoking Status Unknown Procedures and Surgical History Includes: Procedures from this encounter Procedures Code Diagnosis Performing Provider Service L ocation Service Date education and instructions Last Documented On 9:30AM ; [facility] explanation of plan Pt. agre es to obtain U/S for endometrial stripe measurements and will be contacted with results for plan of care. All questions answered Last Documented On 10:24AM ; [facility] medical regimen review Last Documented On 9:30AM ; [facility] Urged Exercise and Diet , exercise at le ast 30 min three times per week Last Documented On 9:30AM ; [facility] cervical Pap smear 21158 Last Documented On 9:30AM ; [facility] history of cervical Pap smear 10/17/2019 38570 Last Documented On 9:20AM ; [facility] Surgical History Last Updated Surgical / procedural histor y knee surgery ~shoulder surgery ~LTCS ~RIGHT KNEE REPLACEMENT 10/2106/18/2014 Last Documented On 9:14AM ; [facility] Recent change to surgical history RIGHT KNEE REPLACEMENT 10/2106/18/2014 Last Documented On 9:14AM ; [facility] Medical History Includes: Medical History addressed during this encounter Description Last Updated Last pap smear date 10/17/2019 01/25/2023 Last Documented On 9:14AM ; [facility] A mammogram was performed 01/25/2023 Last Documented On 9:14AM ; [facility] Last mammogram date: 11/19/2019 2 Last Documented On 1 9:14AM ; [facility] Result: normal 01/20/2021 Last Documented On 1 10:24AM ; [facility] History of colonoscopy fiberoptic was pe rformed 01/10/2020 01/20/2021 Last Documented On 1 10:24AM ; [facility] History of screening mammogram was perfo rmed 11/19/2019 01/20/2021 Last Documented On 1 10:24AM ; [facility] LMP: 09/09/2019 10/17/2019 Last Documented On 1 9:14AM ; [facility] Sexually active one partner 10/17/2019 Last Documented On 1 9:14AM ; [facility] Patient recently had a dexa scan 019 Last Documented On 1 9:14AM ; [facility] Contraception: vasectomy 05/09/2011 Last Documented On 1 9:14AM ; [facility] 2 05/09/2011 Last Documented On 1 9:14AM ; [facility] Para 2 05/09/2011 Last Documented On 1 9:14AM ; [facility] knee surgery 05/13/2009 Last Documented On 1 9:14AM ; [facility] 2 living children 05/13/2009 Last Documented On 1 9:14AM ; [facility] Partner with vasectomy 05/13/2009 Last Documented On 1 9:14AM ; [facility] Family History Includes: Family History addressed during this encounter Description Last Updated Maternal grandmother's histo ry of malignant female breast neoplasm MATERNAL GRANDMOTHER 06/30/2016 Last Documented On 1 9:14AM ; [facility] Paternal history of diabetes mellitus FA THER 06/23/2015 Last Documented On 1 9:14AM ; [facility] Family history of diabetes mellitus FATH ER 06/18/2014 Last Documented On 1 9:14AM ; [facility] Family history of malignant female breas t neoplasm MATERNAL GRANDMOTHER 06/18/2014 Last Documented On 1 9:14AM ; [facility] Family history unchanged 06/18/2014 Last Documented On 1 9:14AM ; [facility] Review of Systems Includes: Review of Systems [...] Diagnosis WELL WOMAN - ESTABLISHED PT GALE GARVIN RN SHMUEL [facility] 01/21/20 21 9:08AM 10:01AM Normal Female Exam,Screen Malignant Neoplasm Cervix Insurance Includes: Active Insurance Policies Plan Name Member ID Group # Subscriber Relationship Effect herminia Dates 1 - [facility] [id number] YUAN kowalski Clinical Notes Includes: Clinical Notes from this encounter No Clinical Notes Recorded
--- OUTSIDE RECORDS SUMMARY | 2024-05-08 08:20 | XMS_ITS | Clinical Summary ---
Author Organization [facility] Address [address] [place] [address] Phone Care Team Providers Care Blow Molder Name Role Phone MIRIAM DHALIWAL, IVETH Drummond Unavailable [phone] Reason for Visit and Chief Complaint CHART UPDATE Problems Includes: Problems addressed during this encounter and other active Problems All Visits Onset Date Resolved Date Provider Condition S tatus Coronavirus Covid-19 Infection 01/20/2021 GALE GARVIN RN SHMUEL Active Last Documented On 1 10:17AM ; [facility] Plan of Treatment No Plan of Treatment Recorded Assessments Includes: Assessments from this encounter No Assessments Recorded Medical Equipment - Implanted Devices Includes: Current Devices No Medical Equipment Recorded Medications Includes: Medications discussed during this encounter and other current Medications Past Medications on file medroxyPROGESTERone Acetate 10 MG Oral Tablet 12/05/2019 - 02/03/2020 Provider: GALE GARVIN RN SHMUEL Diagnosis: Postmenopausal b leeding One tablet daily ONE TAB BRYSON LY FIRST 10 DAYS OF EACH MONTH WITH FOOD Last Documented On 0 8:14AM By GALE CHAN ; [facility] Naproxen 500 MG Oral Tablet 11/28/2019 - 12/03/2019 Provider: GALE GARVIN RN SHMUEL Diagnosis: Postmenopausal b leeding One tablet twice a day USE A S DIRECTED W/FOOD DON'T EXCEED 2 IN 24 HOURS Last Documented On 0 3:10PM By GALE CHAN ; [facility] Medications Administered Includes: Administered Medications from this [...] ~RIGHT KNEE REPLACEMENT 10/2106/18/2014 Last Documented On 4 12:40PM ; [facility] Recent change to surgical history RIGHT KNEE REPLACEMENT 10/2106/18/2014 Last Documented On 4 12:40PM ; [facility] Medical History Includes: Medical History addressed during this encounter Description Last Updated Primary Care Provider: Teresa Monreal 01/25/2023 Last Documented On 4 12:40PM ; [facility] Last pap smear date 01/24/2022 3 Last Documented On 4 12:40PM ; [facility] Result: normal 01/25/2023 Last Documented On 4 12:40PM ; [facility] A mammogram was performed 01/25/2023 Last Documented On 4 12:40PM ; [facility] section 01/25/2023 Last Documented On 4 12:40PM ; [facility] Vaginal delivery 01/25/2023 Last Documented On 4 12:40PM ; [facility] History of diaignostic fiberoptic colono scopy 201901/25/2023 Last Documented On 4 12:40PM ; [facility] History of screening mammogram was perfo rmed 03/202201/25/2023 Last Documented On 4 12:40PM ; [facility] Last mammogram date: 02/202101/24/2022 Last Documented On 4 12:40PM ; [facility] LMP: 09/09/2019 10/17/2019 Last Documented On 4 12:40PM ; [facility] Sexually active one partner 10/17/2019 Last Documented On 4 12:40PM ; [facility] Patient recently had a dexa scan 019 Last Documented On 4 12:40PM ; [facility] Contraception: vasectomy 05/09/2011 Last Documented On 4 12:40PM ; [facility] 2 05/09/2011 Last Documented On 4 12:40PM ; [facility] Para 2 05/09/2011 Last Documented On 4 12:40PM ; [facility] knee surgery 05/13/2009 Last Documented On 4 12:40PM ; [facility] 2 living children 05/13/2009 Last Documented On 4 12:40PM ; [facility] Partner with vasectomy 05/13/2009 Last Documented On 4 12:40PM ; [facility] Family History Includes: Family History addressed during this encounter Description Last Updated Maternal grandmother's histo ry of malignant female breast neoplasm MATERNAL GRANDMOTHER 06/30/2016 Last Documented On 4 12:40PM ; [facility] Paternal history of diabetes mellitus FA THER 06/23/2015 Last Documented On 4 12:40PM ; [facility] Family history of diabetes mellitus FATH ER 06/18/2014 Last Documented On 4 12:40PM ; [facility] Family history of malignant female breas t neoplasm MATERNAL GRANDMOTHER 06/18/2014 Last Documented On 4 12:40PM ; [facility] Family history unchanged 06/18/2014 Last Documented On 4 12:40PM ; [facility] Review of Systems Includes: Review of [...] Time Check-Out Time Diagnosis CHART UPDATE GALE GARVIN RN SHMUEL 06/09/2023 12:39PM 11:59PM Insurance Includes: Active Insurance Policies Plan Name Member ID Group # Subscriber Relationship Effect herminia Dates 1 - [facility] [id number] YUAN kowalski Clinical Notes Includes: Clinical Notes from this encounter * Progress note Date Encounter Last Documented by 06/09/2023 CHART UPDATE Last documented on 06/09/2023; 12:48 PM, GALE GARVIN RN NP ; [facility] Active Problems & Conditions - U07.1 - [...] BRITTNEY and see other task about contacting [facility] radiology. Thanks EndCited StartCited - [...]
--- OUTSIDE RECORDS SUMMARY | 2024-05-08 08:20 | XMS_ITS ---
Author Organization [facility] Address [address] [place] [address] Phone Care Team Providers Care Emergency Service Worker Name Role Phone MIRIAM DHALIWAL, IVETH Drummond Unavailable [phone] Problems Includes: Active, inactive, and resolved Problems All Visits Onset Date Resolved Date Provider Condition S tatus Coronavirus Covid-19 Infection 01/20/2021 GALE GARVIN RN [facility] Active Last Documented On 1 10:17AM ; [facility] Breast Lump Or Mass Right 05/27/2013 Unknown CA YULI GARVIN RN [facility] Resolved Last Documented On 06/18/2014 3:57PM ; [facility] Note: Unchanged - 5:00 6 CM FROM [facility] R BREAST MAMMOGRAM INDICATES CYST Plan of Treatment Findings Encounter Date Ordered Clinical summary pro vided to patient WELL WOMAN - ESTABLISHED PT with GALE GARVNI RN [facility] 01/25/2023 Last Documented On 3 8:54AM ; [facility] Ordered weight loss diet WELL WOMAN - ES TABLISHED PT with GALE GARVIN RN [facility] 01/25/2023 Last Documented On 3 8:54AM ; [facility] Ordered Clinical summary pro vided to patient WELL WOMAN - ESTABLISHED PT with GALE GARVIN RN [facility] 01/24/2022 Last Documented On 2 8:45AM ; [facility] Ordered weight loss diet WELL WOMAN - ES TABLISHED PT with GALE GARVIN RN [facility] 01/24/2022 Last Documented On 2 8:45AM ; [facility] Ordered Clinical summary pro vided to patient WELL WOMAN - ESTABLISHED PT with GALE Edith VIRGIE GALEANO [facility] 01/20/2021 Last Documented On 1 10:24AM ; [facility] Ordered weight loss diet WELL WOMAN - ES TABLISHED PT with GALE MCDUFFIEMARGIE GALEANO [facility] 01/20/2021 Last Documented On 1 10:24AM ; [facility] Ordered Clinical summary pro vided to patient ANNUAL INSIDE TRUCKER EXAM with GALE MCDUFFIEMARGIE GALEANO [facility] 10/17/2019 Last Documented On 0 5:00PM ; [facility] Ordered Clinical summary pro vided to patient PRACTICING MD ANESTHESIOLOGIST EXAM with GALE Sharma VIRGIE GALEANO [facility] 07/25/2018 Last Documented On 9 8:30AM ; [facility] Ordered Clinical summary pro vided to patient ANNUAL INSIDE TRUCKER EXAM with GALE Edith VIRGIE GALEANO [facility] 07/03/2017 Last Documented On 8 4:12PM ; [facility] Ordered Clinical summary pro vided to patient PRACTICING MD ANESTHESIOLOGIST EXAM with GALE MCDUFFIEMARGIE GALEANO [facility] 06/30/2016 Last Documented On 7 4:02PM ; [facility] Ordered Clinical summary pro vided to patient ANNUAL INSIDE TRUCKER EXAM with GALE Sharma VIRGIE GALEANO [facility] 06/23/2015 Last Documented On 6 4:19PM ; [facility] Ordered Clinical summary pro vided to patient PRACTICING MD ANESTHESIOLOGIST EXAM with GALE Sharma VIRGIE GALEANO [facility] 06/18/2014 Last Documented On 5 4:02PM ; [facility] Ordered Clinical summary pro vided to patient BREAST EXAM with GALE Sharma VIRGIE GALEANO [facility] 05/21/2013 Last Documented On 4 3:42PM ; [facility] Referrals To Diagnosis Breast Specialist ROBBIN ANDREW MD - [facility] - [id number] [place] [address] - LUMP OR MASS IN BREAST Note: EVALUATE R BREAST MASS 5:00 6 CM FROM [facility] BREAST U/S INDICATES BENIGN SIMPLE CYST MGM BREAST CANCER Last Documented On 4 1:29PM ; [facility] Vessel Master JUSTIN LOYA MD - [facility] - [address] [place] [phone] - Encounter for screening, unspecified Note: darling Lee for this exam Last Documented On 0 1:37PM ; [facility] Instructions to patient Instructed to call if excess herminia bleeding or abdominal/pelvic pain Last Documented On 3 8:33AM ; [facility] Instructions For Patient: Mo nthly Self Breast Exam Last Documented On 3 8:33AM ; [facility] Recommend diet and exercise at least 30 min three times per week Last Documented On 3 8:33AM ; [facility] Instructed to call if excess herminia bleeding or abdominal/pelvic pain Last Documented On 2 8:23AM ; [facility] Instructions For Patient: Mo nthly Self Breast Exam Last Documented On 2 8:23AM ; [facility] Recommend diet and exercise at least 30 min three times per week Last Documented On 2 8:23AM ; [facility] Instructed to call if excess herminia bleeding or abdominal/pelvic pain Last Documented On 1 9:30AM ; [facility] Instructions For Patient: Mo nthly Self Breast Exam Last Documented On 1 9:30AM ; [facility] Recommend diet and exercise at least 30 min three times per week Last Documented On 1 9:30AM ; [facility] Intervention and counseling on cessation of tobacco use Last Documented On 0 8:13AM ; [facility] Lose weight Last Documented On 0 8:13AM ; [facility] Instructed to call if excess herminia bleeding or abdominal/pelvic pain Last Documented On 0 3:02PM ; [facility] Patient may take Motrin OTC PRN as directed Last Documented On 0 3:02PM ; [facility] Instructions for patient ER if dizzy, vomiting or light-headed due to heavy bleeding Last Documented On 0 4:58PM ; [facility] Instructions for patient : p atient is to keep a menstrual diary to help with further evaluation and treatment Last Documented On 0 4:58PM ; [facility] Instructions for patient ER if bleeding through reg. sized pad/tampon < 1 hour Last Documented On 0 4:58PM ; [facility] Instructed to call if excess herminia bleeding or abdominal/pelvic pain Last Documented On 0 3:47PM ; [facility] Instructions For Patient: Mo nthly Self Breast Exam Last Documented On 0 3:47PM ; [facility] Recommend diet and exercise at least 30 min three times per week Last Documented On 0 3:47PM ; [facility] Instructed to call if excess herminia bleeding or abdominal/pelvic pain Last Documented On 9 8:10AM ; [facility] Instructions For Patient: Mo nthly Self Breast Exam Last Documented On 9 8:10AM ; [facility] Recommend diet and exercise at least 30 min three times per week Last Documented On 9 8:10AM ; [facility] Instructed to call if excess herminia bleeding or abdominal/pelvic pain Last Documented On 8 3:48PM ; [facility] Instructions For Patient: Mo nthly Self Breast Exam Last Documented On 8 3:48PM ; [facility] Recommend diet and exercise at least 30 min three times per week Last Documented On 8 3:48PM ; [facility] Instructed to call if excess herminia bleeding or abdominal/pelvic pain Last Documented On 7 3:54PM ; [facility] Instructions For Patient: Mo nthly Self Breast Exam Last Documented On 7 3:54PM ; [facility] Recommend diet and exercise at least 30 min three times per week Last Documented On 7 3:54PM ; [facility] Instructions for patient : B reast Self Exam discussed and technique reviewed Last Documented On 6 4:07PM ; [facility] Instructed to call if excess herminia bleeding or abdominal/pelvic pain Last Documented On 6 4:07PM ; [facility] Recommend diet and exercise at least 30 min three times per week Last Documented On 6 4:07PM ; [facility] Instructions for patient : B reast Self Exam discussed and technique reviewed Last Documented On 5 3:48PM ; [facility] Instructed to call if excess herminia bleeding or abdominal/pelvic pain Last Documented On 5 3:48PM ; [facility] Recommend diet and exercise at least 30 min three times per week Last Documented On 5 3:48PM ; [facility] Instructions for patient : B reast Self Exam discussed Last Documented On 2 3:46PM ; [facility] Instructions for patient : B reast Self Exam discussed Last Documented On 1 2:44PM ; [facility] Education and Decision Aids were provided during visit for: Patient Education: Daily kenny cium and vitamin D Last Documented On 3 8:33AM ; [facility] Patient Education: Daily kenny cium and vitamin D Last Documented On 2 8:23AM ; [facility] Patient Education: Daily kenny cium and vitamin D Last Documented On 1 9:30AM ; [facility] INFORMED CONSENT DISCUSSION: Endometrial biopsy was discussed in detail including discomfort, insufficient specimen with need to repeat test, and rare incidence of uterine perforation. Patient expressed understanding of the above and consented to the procedure Last Documented On 0 3:02PM ; [facility] Patient Education: Daily kenny cium and vitamin D Last Documented On 0 3:47PM ; [facility] Patient Education: Daily kenny cium and vitamin D Last Documented On 9 8:10AM ; [facility] Patient Education: Daily kenny cium and vitamin D Last Documented On 8 3:48PM ; [facility] Patient Education: Daily kenny cium and vitamin D Last Documented On 7 3:54PM ; [facility] Patient Education: Daily kenny cium and vitamin D Last Documented On 6 4:07PM ; [facility] Patient Education: Daily kenny cium and vitamin D Last Documented On 5 3:48PM ; [facility] Patient education : Last Documented On 2 3:46PM ; [facility] STD screening offered and de clined Last Documented On 2 3:46PM ; [facility] Patient education : Last Documented On 1 2:44PM ; [facility] STD screening offered and de clined Last Documented On 1 2:44PM ; [facility] Assessments Includes: Assessments for all patient encounters Findings Encounter Date NORMAL FEMALE EXAM WELL WOMAN - ESTABLI SHED PT with GALE GARVIN RN [facility] 01/25/2023 Last Documented On 3 8:54AM ; [facility] Screen malignant neoplasm cervix WELL WO MAN - ESTABLISHED PT with GALE GARVIN RN [facility] 01/25/2023 Last Documented On 3 8:54AM ; [facility] [Endometrial hyperplasia, un specified] endometrial hyperplasia h/o WELL WOMAN - ESTABLISHED PT with GALE GARVIN RN [facility] 01/24/2022 Last Documented On 2 8:45AM ; [facility] NORMAL FEMALE EXAM WELL WOMAN - ESTABLI SHED PT with GALE GARVIN RN [facility] 01/24/2022 Last Documented On 2 8:45AM ; [facility] Screen malignant neoplasm cervix WELL WO MAN - ESTABLISHED PT with GALE GARVIN RN [facility] 01/24/2022 Last Documented On 2 8:45AM ; [facility] NORMAL FEMALE EXAM WELL WOMAN - ESTABLI SHED PT with GALE GARVIN RN [facility] 01/20/2021 Last Documented On 1 10:24AM ; [facility] Screen malignant neoplasm cervix WELL WO MAN - ESTABLISHED PT with GALE GARVIN RN [facility] 01/20/2021 Last Documented On 1 10:24AM ; [facility] Postmenopausal bleeding CHART UPDATE with GALE GARVIN RN [facility] 12/05/2019 Last Documented On 0 8:11AM ; [facility] Endometrial hyperplasia PROCEDURE OFFICE with RONI GARVIN RN [facility] 11/28/2019 Last Documented On 0 3:21PM ; [facility] Postmenopausal bleeding PROCEDURE OFFICE with RONI GARVIN RN [facility] 11/28/2019 Last Documented On 0 3:21PM ; [facility] Endometrial hyperplasia CHART UPDATE with GALE GARVIN RN [facility] 11/20/2019 Last Documented On 0 12:53PM ; [facility] Postmenopausal bleeding CHART UPDATE with GALE GARVIN RN [facility] 11/20/2019 Last Documented On 0 12:53PM ; [facility] Dysfunctional uterine bleeding ANNUAL PM P EXAM with GALE GARVIN RN [facility] 10/17/2019 Last Documented On 0 5:00PM ; [facility] NORMAL FEMALE EXAM ANNUAL INSIDE TRUCKER EXAM with GALE GARVIN RN [facility] 10/17/2019 Last Documented On 0 5:00PM ; [facility] Screen malignant neoplasm cervix ANNUAL INSIDE TRUCKER EXAM with GALE GARVIN RN [facility] 10/17/2019 Last Documented On 0 5:00PM ; [facility] NORMAL FEMALE EXAM PRACTICING MD ANESTHESIOLOGIST EXAM with GALE Perez [facility] 07/25/2018 Last Documented On 9 8:30AM ; [facility] Screen malignant neoplasm cervix PRACTICING MD ANESTHESIOLOGIST EXAM with Bhanu GARVIN RN [facility] 07/25/2018 Last Documented On 9 8:30AM ; [facility] NORMAL FEMALE EXAM ANNUAL INSIDE TRUCKER EXAM with GALE GARVIN RN [facility] 07/03/2017 Last Documented On 8 4:12PM ; [facility] Screen malignant neoplasm cervix ANNUAL INSIDE TRUCKER EXAM with GALE GARVIN RN [facility] 07/03/2017 Last Documented On 8 4:12PM ; [facility] NORMAL FEMALE EXAM PRACTICING MD ANESTHESIOLOGIST EXAM with GALE Perez [facility] 06/30/2016 Last Documented On 7 4:02PM ; [facility] Screen malignant neoplasm cervix PRACTICING MD ANESTHESIOLOGIST EXAM with Bhanu GARVIN RN [facility] 06/30/2016 Last Documented On 7 4:02PM ; [facility] NORMAL FEMALE EXAM ANNUAL INSIDE TRUCKER EXAM with GALE GARIVN RN [facility] 06/23/2015 Last Documented On 6 4:19PM ; [facility] MAMMOGRAM SCREENING PRACTICING MD ANESTHESIOLOGIST EXAM with GALE GARVIN RN [facility] 06/18/2014 Last Documented On 5 4:02PM ; [facility] Routine gynecological exam PRACTICING MD ANESTHESIOLOGIST EXAM with GALE GARVIN RN [facility] 06/18/2014 Last Documented On 5 4:02PM ; [facility] Lump or mass in the right breast CHART U PDATE with GALE GARVIN RN [facility] 05/27/2013 Last Documented On 4 11:43AM ; [facility] Lump or mass in the right breast BREAST EXAM wit h GALE GARVIN RN [facility] 05/21/2013 Last Documented On 4 3:42PM ; [facility] Routine pelvic exam PRACTICING MD ANESTHESIOLOGIST EXAM with AMBAR HOPSON MD 05/09/2011 Last Documented On 2 4:00PM ; [facility] Routine pelvic exam PRACTICING MD ANESTHESIOLOGIST EXAM with AMBAR HOPSON MD 05/06/2010 Last Documented On 1 2:45PM ; [facility] Instructions Includes: Instructions for all patient encounters Instructions to patient Instructed to call if excess herminia bleeding or abdominal/pelvic pain Last Documented On 3 8:33AM ; [facility] Instructions For Patient: Mo nthly Self Breast Exam Last Documented On 3 8:33AM ; [facility] Recommend diet and exercise at least 30 min three times per week Last Documented On 3 8:33AM ; [facility] Instructed to call if excess herminia bleeding or abdominal/pelvic pain Last Documented On 2 8:23AM ; [facility] Instructions For Patient: Mo nthly Self Breast Exam Last Documented On 2 8:23AM ; [facility] Recommend diet and exercise at least 30 min three times per week Last Documented On 2 8:23AM ; [facility] Instructed to call if excess herminia bleeding or abdominal/pelvic pain Last Documented On 1 9:30AM ; [facility] Instructions For Patient: Mo nthly Self Breast Exam Last Documented On 1 9:30AM ; [facility] Recommend diet and exercise at least 30 min three times per week Last Documented On 1 9:30AM ; [facility] Intervention and counseling on cessation of tobacco use Last Documented On 0 8:13AM ; [facility] Lose weight Last Documented On 0 8:13AM ; [facility] Instructed to call if excess herminia bleeding or abdominal/pelvic pain Last Documented On 0 3:02PM ; [facility] Patient may take Motrin OTC PRN as directed Last Documented On 0 3:02PM ; [facility] Instructions for patient ER if dizzy, vomiting or light-headed due to heavy bleeding Last Documented On 0 4:58PM ; [facility] Instructions for patient : p atient is to keep a menstrual diary to help with further evaluation and treatment Last Documented On 0 4:58PM ; [facility] Instructions for patient ER if bleeding through reg. sized pad/tampon < 1 hour Last Documented On 0 4:58PM ; [facility] Instructed to call if excess herminia bleeding or abdominal/pelvic pain Last Documented On 0 3:47PM ; [facility] Instructions For Patient: Mo nthly Self Breast Exam Last Documented On 0 3:47PM ; [facility] Recommend diet and exercise at least 30 min three times per week Last Documented On 0 3:47PM ; [facility] Instructed to call if excess herminia bleeding or abdominal/pelvic pain Last Documented On 9 8:10AM ; [facility] Instructions For Patient: Mo nthly Self Breast Exam Last Documented On 9 8:10AM ; [facility] Recommend diet and exercise at least 30 min three times per week Last Documented On 9 8:10AM ; [facility] Instructed to call if excess herminia bleeding or abdominal/pelvic pain Last Documented On 8 3:48PM ; [facility] Instructions For Patient: Mo nthly Self Breast Exam Last Documented On 8 3:48PM ; [facility] Recommend diet and exercise at least 30 min three times per week Last Documented On 8 3:48PM ; [facility] Instructed to call if excess herminia bleeding or abdominal/pelvic pain Last Documented On 7 3:54PM ; [facility] Instructions For Patient: Mo nthly Self Breast Exam Last Documented On 7 3:54PM ; [facility] Recommend diet and exercise at least 30 min three times per week Last Documented On 7 3:54PM ; [facility] Instructions for patient : B reast Self Exam discussed and technique reviewed Last Documented On 6 4:07PM ; [facility] Instructed to call if excess herminia bleeding or abdominal/pelvic pain Last Documented On 6 4:07PM ; [facility] Recommend diet and exercise at least 30 min three times per week Last Documented On 6 4:07PM ; [facility] Instructions for patient : B reast Self Exam discussed and technique reviewed Last Documented On 5 3:48PM ; [facility] Instructed to call if excess herminia bleeding or abdominal/pelvic pain Last Documented On 5 3:48PM ; [facility] Recommend diet and exercise at least 30 min three times per week Last Documented On 5 3:48PM ; [facility] Instructions for patient : B reast Self Exam discussed Last Documented On 2 3:46PM ; [facility] Instructions for patient : B reast Self Exam discussed Last Documented On 1 2:44PM ; [facility] Education and Decision Aids were provided during visit for: Patient Education: Daily kenny cium and vitamin D Last Documented On 3 8:33AM ; [facility] Patient Education: Daily kenny cium and vitamin D Last Documented On 2 8:23AM ; [facility] Patient Education: Daily kenny cium and vitamin D Last Documented On 1 9:30AM ; [facility] INFORMED CONSENT DISCUSSION: Endometrial biopsy was discussed in detail including discomfort, insufficient specimen with need to repeat test, and rare incidence of uterine perforation. Patient expressed understanding of the above and consented to the procedure Last Documented On 0 3:02PM ; [facility] Patient Education: Daily kenny cium and vitamin D Last Documented On 0 3:47PM ; [facility] Patient Education: Daily kenny cium and vitamin D Last Documented On 9 8:10AM ; [facility] Patient Education: Daily kenny cium and vitamin D Last Documented On 8 3:48PM ; [facility] Patient Education: Daily kenny cium and vitamin D Last Documented On 7 3:54PM ; [facility] Patient Education: Daily kenny cium and vitamin D Last Documented On 6 4:07PM ; [facility] Patient Education: Daily kenny cium and vitamin D Last Documented On 5 3:48PM ; [facility] Patient education : Last Documented On 2 3:46PM ; [facility] STD screening offered and de clined Last Documented On 2 3:46PM ; [facility] Patient education : Last Documented On 1 2:44PM ; [facility] STD screening offered and de clined Last Documented On 1 2:44PM ; [facility] Medical Equipment - Implanted Devices Includes: Current [...] 0 8:14AM By GALE GARVIN HENRIK ; [facility] Naproxen 500 MG Oral Tablet 11/28/2019 - 12/03/2019 Provider: GALE GARVIN RN [facility] Diagnosis: Postmenopausal b leeding One tablet twice a day USE A S DIRECTED W/FOOD DON'T EXCEED 2 IN 24 HOURS Last Documented On 0 3:10PM By GALE GARVIN HENRIK ; [facility] Medications Administered Includes: Administered Medications in patient's chart No Administered Medications Recorded Results Includes: Results from 05/08/2023 through 05/08/2024 No Results Recorded For Specified Dates History of Present Illness History of Present Illness not supported for this document type No History of Present Illness Recorded Social History Description Last Updated A social drinker 01/25/2023 Last Documented On 3 8:54AM ; [facility] Alcohol use: 2 drinks or less per day Last Documented On 3 8:54AM ; [facility] Caffeine use 01/25/2023 Last Documented On 3 8:54AM ; [facility] Daily tea consumption 01/25/2023 Last Documented On 3 8:54AM ; [facility] Education history 01/25/2023 Last Documented On 3 8:54AM ; [facility] Educational level 01/25/2023 Last Documented On 3 8:54AM ; [facility] Marital history 01/25/2023 Last Documented On 3 8:54AM ; [facility] Not a smoker 01/25/2023 Last Documented On 3 8:54AM ; [facility] Not using alcohol 01/25/2023 Last Documented On 3 8:54AM ; [facility] Not using drugs 01/25/2023 Last Documented On 3 8:54AM ; [facility] Personal history in remission fo r brain cancer 01/25/2023 Last Documented On 3 8:54AM ; [facility] Sexually active 01/25/2023 Last Documented On 3 8:54AM ; [facility] Sexually active with 1 partners in the l ast year 01/25/2023 Last Documented On 3 8:54AM ; [facility] Social history unchanged 01/25/2023 Last Documented On 3 8:54AM ; [facility] Tobacco non-user 01/25/2023 Last Documented On 3 8:54AM ; [facility] Not exercising regularly 01/25/2023 Last Documented On 3 8:54AM ; [facility] Smoking Status Unknown Procedures and Surgical History Surgical History Last Updated Surgical / procedural histor y knee surgery ~shoulder surgery ~LTCS ~RIGHT KNEE REPLACEMENT 10/2106/18/2014 Last Documented On 5 4:02PM ; [facility] Recent change to surgical history RIGHT KNEE REPLACEMENT 10/2106/18/2014 Last Documented On 5 4:02PM ; [facility] Medical History Includes: Medical History in patient's chart Description Last Updated Primary Care Provider: Teresa Monreal 01/25/2023 Last Documented On 3 8:54AM ; [facility] Last pap smear date 01/24/2022 3 Last Documented On 3 8:54AM ; [facility] Result: normal 01/25/2023 Last Documented On 3 8:54AM ; [facility] A mammogram was performed 01/25/2023 Last Documented On 3 8:54AM ; [facility] section 01/25/2023 Last Documented On 3 8:54AM ; [facility] Vaginal delivery 01/25/2023 Last Documented On 3 8:54AM ; [facility] History of diaignostic fiberoptic colono scopy 201901/25/2023 Last Documented On 3 8:54AM ; [facility] History of screening mammogram was perfo rmed 03/202201/25/2023 Last Documented On 3 8:54AM ; [facility] Last mammogram date: 02/202101/24/2022 Last Documented On 2 8:45AM ; [facility] LMP: 09/09/2019 10/17/2019 Last Documented On 0 5:00PM ; [facility] Sexually active one partner 10/17/2019 Last Documented On 0 5:00PM ; [facility] Patient recently had a dexa scan 019 Last Documented On 9 8:30AM ; [facility] Contraception: vasectomy 05/09/2011 Last Documented On 2 4:00PM ; [facility] 2 05/09/2011 Last Documented On 2 4:00PM ; [facility] Para 2 05/09/2011 Last Documented On 2 4:00PM ; [facility] knee surgery 05/13/2009 Last Documented On 0 10:40AM ; [facility] 2 living children 05/13/2009 Last Documented On 0 10:40AM ; [facility] Partner with vasectomy 05/13/2009 Last Documented On 0 10:40AM ; [facility] Family History Includes: Family History in patient's chart Description Last Updated Maternal grandmother's histo ry of malignant female breast neoplasm MATERNAL GRANDMOTHER 06/30/2016 Last Documented On 7 4:02PM ; [facility] Paternal history of diabetes mellitus FA THER 06/23/2015 Last Documented On 6 4:19PM ; [facility] Family history of diabetes mellitus FATH ER 06/18/2014 Last Documented On 5 4:02PM ; [facility] Family history of malignant female breas t neoplasm MATERNAL GRANDMOTHER 06/18/2014 Last Documented On 5 4:02PM ; [facility] Family history unchanged 06/18/2014 Last Documented On 5 4:02PM ; [facility] Review of Systems Review of Systems not [...] Subscriber Relationship Effect herminia Dates 1 - [facility] [id number] YUAN kowalski Clinical Notes Includes: Signed Clinical Notes starting from 04/29/2022 * Progress note Date Encounter Last Documented by 06/09/2023 CHART UPDATE Last documented on 06/09/2023; 12:48 PM, GALE MONTIEL ; [facility] Active Problems & Conditions - U07.1 [...] BRITTNEY and see other task about contacting [facility] radiology. Thanks EndCited StartCited - Other signs [...]
--- OUTSIDE RECORDS SUMMARY | 2024-05-08 08:20 | XMS_ITS ---
Care Plan - [facility] Created on: May 08, 2024 YUAN TORRES : 1970 Sex: Female Author Organization [facility] Address [address] [place] [address] Phone Care Team Providers Care Inspector Crystal Name Role Phone MIRIAM DHALIWAL, IVETH C Unavailable [phone]
--- OUTSIDE RECORDS SUMMARY | 2024-05-08 08:20 | XMS_ITS | Clinical Summary ---
Author Organization [facility] Address [address] [place] [address] Phone Care Team Providers Care Fulfillment Specialist Name Role Phone MIRIAM DHALIWAL, IVETH C Unavailable [phone] Reason for Visit and Chief Complaint gynecologic annual exam - The Chief Complaint is: WWE and pt states no c/o Problems Includes: Problems addressed during this encounter and other active Problems All Visits Onset Date Resolved Date Provider Condition S tatus Coronavirus Covid-19 Infection 01/20/2021 GALE GARVIN RN NP Active Last Documented On 10:17AM ; [facility] Plan of Treatment - Weight loss diet - Last Documented On 01/25/2023 8:54AM ; [facility] - Clinical summary provided to patient - Last Documented On 01/25/2023 8:54AM ; [facility] PT TO CALL WITH ANY CHANGE IN STATUS ALL QUESTIONS ANSWERED WITH UNDERSTANDING VERBALIZED BY PT. - Last Documented On 01/25/2023 8:54AM ; [facility] PT TO CALL WITH ANY CHANGE IN STATUS ALL QUESTIONS ANSWERED WITH UNDERSTANDING VERBALIZED BY PT. - Last Documented On 01/25/2023 8:54AM ; [facility] PT TO CALL WITH ANY CHANGE IN STATUS ALL QUESTIONS ANSWERED WITH UNDERSTANDING VERBALIZED BY PT. - Last Documented On 01/25/2023 8:54AM ; [facility] Instructions to patient Instructed to call if excess herminia bleeding or abdominal/pelvic pain Last Documented On 8:33AM ; [facility] Instructions For Patient: Mo nthly Self Breast Exam Last Documented On 3 8:33AM ; [facility] Recommend diet and exercise at least 30 min three times per week Last Documented On 3 8:33AM ; [facility] Education and Decision Aids were provided during visit for: Patient Education: Daily kenny cium and vitamin D Last Documented On 3 8:33AM ; [facility] Assessments Includes: Assessments from this encounter Findings - [Z01.419 - Encounter for gynecological examination (general) (routine) without abnormal findings] NORMAL FEMALE EXAM - Last Documented On 01/25/2023 8:54AM ; [facility] - [Z12.4 - Encounter for screening for malignant neoplasm of cervix] Screen malignant neoplasm cervix - Last Documented On 01/25/2023 8:54AM ; [facility] Instructions Includes: Instructions from this encounter Instructions to patient Instructed to call if excess herminia bleeding or abdominal/pelvic pain Last Documented On 3 8:33AM ; [facility] Instructions For Patient: Mo nthly Self Breast Exam Last Documented On 3 8:33AM ; [facility] Recommend diet and exercise at least 30 min three times per week Last Documented On 3 8:33AM ; [facility] Education and Decision Aids were provided during visit for: Patient Education: Daily kenny cium and vitamin D Last Documented On 3 8:33AM ; [facility] Medical Equipment - Implanted Devices Includes: [...] On 0 8:14AM By GALE CHAN ; [facility] Naproxen 500 MG Oral Tablet 11/28/2019 - 12/03/2019 Provider: GALE MONTIEL BC Diagnosis: Postmenopausal b leeding One tablet twice a day USE A S DIRECTED W/FOOD DON'T EXCEED 2 IN 24 HOURS Last Documented On 0 3:10PM By GALE CAHN ; [facility] Medications Administered Includes: Administered Medications from this encounter No Administered Medications Recorded Vital Signs Includes: Vital Signs from this encounter Vital Name 01/25/2023 08:30A Blood Pressure Sitting (mmHg) 122/80 Temp-Oral (F) 98.4 Height (in) 66 Weight (lb) 207.4 Body Mass Index 33.5 Body Surface Area 2 Last Documented: On 01/25/2023 8:31AM ; [facility] Results Includes: Results discussed during this encounter No Results Recorded For Specified Dates History of Present Illness Includes: History of Present Illness from this encounter HPI - Allergy list reviewed - Medication list reviewed Social History Description Last Updated A social drinker 01/25/2023 Last Documented On 3 8:54AM ; [facility] Alcohol use: 2 drinks or less per day Last Documented On 3 8:54AM ; [facility] Caffeine use 01/25/2023 Last Documented On 3 8:54AM ; [facility] Daily tea consumption 01/25/2023 Last Documented On 3 8:54AM ; [facility] Education history 01/25/2023 Last Documented On 3 8:54AM ; [facility] Educational level 01/25/2023 Last Documented On 3 8:54AM ; [facility] Marital history 01/25/2023 Last Documented On 3 8:54AM ; [facility] Not a smoker 01/25/2023 Last Documented On 3 8:54AM ; [facility] Not using alcohol 01/25/2023 Last Documented On 3 8:54AM ; [facility] Not using drugs 01/25/2023 Last Documented On 3 8:54AM ; [facility] Personal history in remission fo r brain cancer 01/25/2023 Last Documented On 3 8:54AM ; [facility] Sexually active 01/25/2023 Last Documented On 3 8:54AM ; [facility] Sexually active with 1 partners in the l ast year 01/25/2023 Last Documented On 3 8:54AM ; [facility] Social history unchanged 01/25/2023 Last Documented On 3 8:54AM ; [facility] Tobacco non-user 01/25/2023 Last Documented On 3 8:54AM ; [facility] Alcohol use occ 01/25/2023 Last Documented On 3 8:54AM ; [facility] Not exercising regularly 01/25/2023 Last Documented On 3 8:54AM ; [facility] Smoking Status Unknown Procedures and Surgical History Includes: Procedures from this encounter Procedures Code Diagnosis Performing Provider Service L ocation Service Date education and instructions Last Documented On 3 8:33AM ; [facility] explanation of plan Pt to defer dexa, in surance will not pay for testing Last Documented On 3 8:53AM ; [facility] medical regimen review Last Documented On 3 8:33AM ; [facility] Urged Exercise and Diet , exercise at le ast 30 min three times per week Last Documented On 3 8:33AM ; [facility] cervical Pap smear 88588 Last Documented On 3 8:33AM ; [facility] history of cervical Pap smear 01/2022 WNL 38407 Last Documented On 3 8:26AM ; [facility] Surgical History Last Updated Surgical / procedural histor y knee surgery ~shoulder surgery ~LTCS ~RIGHT KNEE REPLACEMENT 10/2106/18/2014 Last Documented On 3 8:22AM ; [facility] Recent change to surgical history RIGHT KNEE REPLACEMENT 10/2106/18/2014 Last Documented On 3 8:22AM ; [facility] Medical History Includes: Medical History addressed during this encounter Description Last Updated Primary Care Provider: Teresa Monreal 01/25/2023 Last Documented On 3 8:54AM ; [facility] Last pap smear date 01/24/2022 3 Last Documented On 3 8:54AM ; [facility] Result: normal 01/25/2023 Last Documented On 3 8:54AM ; [facility] A mammogram was performed 01/25/2023 Last Documented On 3 8:54AM ; [facility] section 01/25/2023 Last Documented On 3 8:54AM ; [facility] Vaginal delivery 01/25/2023 Last Documented On 3 8:54AM ; [facility] History of diaignostic fiberoptic colono scopy 201901/25/2023 Last Documented On 3 8:54AM ; [facility] History of screening mammogram was perfo rmed 03/202201/25/2023 Last Documented On 3 8:54AM ; [facility] LMP: 09/09/2019 10/17/2019 Last Documented On 3 8:22AM ; [facility] Sexually active one partner 10/17/2019 Last Documented On 3 8:22AM ; [facility] Contraception: vasectomy 05/09/2011 Last Documented On 3 8:22AM ; [facility] 2 05/09/2011 Last Documented On 3 8:22AM ; [facility] Para 2 05/09/2011 Last Documented On 3 8:22AM ; [facility] knee surgery 05/13/2009 Last Documented On 3 8:22AM ; [facility] 2 living children 05/13/2009 Last Documented On 3 8:22AM ; [facility] Family History Includes: Family History addressed during this encounter Description Last Updated Maternal grandmother's histo ry of malignant female breast neoplasm MATERNAL GRANDMOTHER 06/30/2016 Last Documented On 3 8:22AM ; [facility] Paternal history of diabetes mellitus FA THER 06/23/2015 Last Documented On 3 8:22AM ; [facility] Review of Systems Includes: Review [...] No genital lesion, no pain during intercourse, no vaginal dryness, and no nonmenstrual bleeding. No vaginal discharge. Endocrine: No [...] - ESTABLISHED PT GALE GARVIN RN [facility] 01/26/20 23 8:12AM 8:51AM Screen Malignant Neoplasm Cervix,Normal Female Exam Insurance Includes: Active Insurance Policies Plan Name Member ID Group # Subscriber Relationship Effect herminia Dates 1 - [facility] [id number] YUAN kowalski Clinical Notes Includes: Clinical Notes from this encounter * Progress note Date Encounter Last Documented by 01/25/2023 WE[facility] WOMAN - ESTABLISHED PT Last documented on 01/25/2023; 8:54 AM, GALE GARVIN RN SHMUEL ; [facility] Active Problems & Conditions - U07.1 - Coronavirus Covid-19 Infection - Z80.3 - Family History of Breast Neoplasm Malignant Female - MGM Chief Complaint The Chief Complaint is: WWE and pt states no c/o. Well Woman visit Reason For Visit Gynecologic annual exam. History of Present Illness - Allergy list reviewed - Medication list reviewed Current Medication - None Past Medical/Surgical History Other: Primary Care Provider: Teresa Monrela Reported: LMP: 09/09/2019, Last pap smear date 01/24/2022 result: normal, and Contraception: vasectomy. Surgical / Procedural: Surgical / procedural history knee surgery shoulder surgery LTCS RIGHT KNEE REPLACEMENT 10/21. Recent change to surgical history RIGHT KNEE REPLACEMENT 10/21. Tests: A mammogram was performed. : 2, para 2 having 2 living children, history of the : vaginal delivery, and section. Sexual: Sexually active one partner. Other: Diaignostic fiberoptic colonoscopy 2019. Screening mammogram was performed 03/2022 Knee surgery. Social History Social history unchanged. Personal: Personal history in remission for brain cancer. Caffeine use: Daily tea consumption. Tobacco use: Tobacco non-user. Not a smoker. Alcohol: Alcohol use occ. Not using alcohol. A social drinker and alcohol use: 2 drinks or less per day. Drug Use: Not using drugs. Habits: Not exercising regularly. Education: Educational level. Marital: Marital history . Sexual: Sexually active with 1 partners in the last year. Allergies - No Known Allergies Family History Paternal: Diabetes mellitus FATHER Maternal grandmother's: Malignant female breast neoplasm MATERNAL GRANDMOTHER Review Of Systems Systemic: Not tiring easily. No fever, no [...] No genital lesion, no pain during intercourse, no vaginal dryness, and no nonmenstrual bleeding. No vaginal discharge. Endocrine: No polydipsia, no hot flashes, and libido has not changed. Musculoskeletal: No back pain, no muscle aches, and no localized joint pain. Neurological: No dizziness. Psychological: No anxiety, no depression, and a desire to continue living. Skin: No pruritus. No skin lesions and no rash. Physical Findings - Vitals taken 01/25/2023 08:30 am BP-Sitting 122/80 mmHg Temp-Oral 98.4 F Height 66 in Weight 207 lbs 6.4 oz Body Mass Index 33.5 kg/m2 Body Surface Area 2 m2 Standard Measurements: - Weight. - Patient was not observed to be obese. General Appearance: - Normal. - Well developed. - Well nourished. - In no acute distress. Neck: - Normal. Appearance: - Neck was not swollen. - Neck was symmetrical. Palpation: - No tenderness of the neck. Thyroid: - Showed no abnormalities. - Did not have a nodule. - Not tender. Eyes: General/bilateral: Pupils: - PERRL. Nose: Right Side Of Nose: - Normal. Left Side Of Nose: - Normal. Oral Cavity: - General condition was good. Gums: - Examination showed no abnormalities. Teeth: - Dental no abnormalities. Lymph Nodes: - No adenopathy. - Cervical lymph nodes: normal. - Supraclavicular lymph Nodes: normal. Breasts: General/bilateral: - Palpation of the breast revealed dense, thickened tissue. - Nipples showed no abnormalities. - No abnormal breast secretion was observed. - No dimpling was seen in the breast. - No breast asymmetry was observed. - No breast mass was found. - No tenderness of breast. Right Breast: - Normal. - Was normal to palpation. Left Breast: - Normal. - Was normal to palpation. Lungs: - Respiration rhythm and depth was normal. - Clear to auscultation. - No wheezing was heard. - No rhonchi were heard. Cardiovascular: - System: normal. Heart Rate And Rhythm: - Normal. - Heart rhythm regular. Heart Sounds: - Normal. - S1 normal. - S2 normal. - No gallop was heard. Murmurs: - No murmurs were heard. Edema: - Not present. Abdomen: - No organomegaly. Visual Inspection: - Abdomen was normal on visual inspection. Palpation: - Abdominal non-tender. Liver: - Not enlarged. Spleen: - Not enlarged. Urinary System: Bladder: - Normal. - Not tender. Urethra: - Normal. - Meatus showed no abnormalities. - No mass on the urethra. Genitalia: External: - Genitalia showed no abnormalities. Pelvic: - No ovarian mass. Vagina: - Mucosa was normal. - No vaginal discharge was observed. - No cystocele was observed. - No rectocele was observed. Cervix: - Normal. - No cervical discharge. - Showed no lesion. - Did not demonstrate pain elicited by motion. - No inflammation. - No stenosis. Uterus: - Positioned midline. - Mobile. - Uterine size is normal. - Not tender. Uterine Adnexae: - Normal. - Uterine adnexa was not tender. - No tubal mass was noted. Rectovaginal: - Tissue was normal. Perineum: - No lesions. - No rashes. Rectal: Anus Examination: - External hemorrhoids were observed. Musculoskeletal System: Fingers: General/bilateral: - No cyanosis of the fingers. - No acropachy of the fingers was observed. Neurological: - Oriented to time, place, and person. Psychiatric: - Mood was not anxious. Appearance: - Grooming was normal. Affect: - Not agitated. Skin: - General appearance was normal. - Texture was normal. - Turgor was normal. - No cyanosis. - Moisture was normal. - No skin lesions. - No perineal lesions. - No rash. Tests Pathology: Cytology: Cervical Pap smear. Assessment - [Z01.419 - Encounter for gynecological examination (general) (routine) without abnormal findings] NORMAL FEMALE EXAM - [Z12.4 - Encounter for screening for malignant neoplasm of cervix] Screen malignant neoplasm cervix Previous Tests Pathology: Cytology: Cervical Pap smear 01/2022 WNL. Therapy - Urged Exercise and Diet, exercise at least 30 min three times per week. - Education and instructions. - Medical regimen review. - Explanation of plan Pt to defer dexa, insurance will not pay for testing. 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 PT TO CALL WITH ANY CHANGE IN STATUS ALL QUESTIONS ANSWERED WITH UNDERSTANDING VERBALIZED BY PT. PT TO CALL WITH ANY CHANGE IN STATUS ALL QUESTIONS ANSWERED WITH UNDERSTANDING VERBALIZED BY PT. Health Reminders - Assess BMI satisfied 01/25/2023. - Assess Need for CT Lung Screen satisfied 01/25/2023. - Assess Tobacco Use satisfied 01/25/2023. - Colorectal Cancer Screening satisfied 01/25/2023. - Mammogram satisfied 01/25/2023.
--- OUTSIDE RECORDS SUMMARY | 2024-05-08 08:20 | XMS_ITS | Clinical Summary ---
Author Organization [facility] Address [address] [place] [address] Phone Care Team Providers Care Automotive Service Advisor Name Role Phone MIRIAM DHALIWAL, IVETH C Unavailable [phone] Reason for Visit and Chief Complaint gynecologic annual exam - The Chief Complaint is: WWE and pt states no c/o Problems Includes: Problems addressed during this encounter and other active Problems All Visits Onset Date Resolved Date Provider Condition S tatus Coronavirus Covid-19 Infection 01/20/2021 GALE GARVIN RN NP Active Last Documented On 10:17AM ; [facility] Plan of Treatment - Weight loss diet - Last Documented On 01/25/2023 8:54AM ; [facility] - Clinical summary provided to patient - Last Documented On 01/25/2023 8:54AM ; [facility] PT TO CALL WITH ANY CHANGE IN STATUS ALL QUESTIONS ANSWERED WITH UNDERSTANDING VERBALIZED BY PT. - Last Documented On 01/25/2023 8:54AM ; [facility] PT TO CALL WITH ANY CHANGE IN STATUS ALL QUESTIONS ANSWERED WITH UNDERSTANDING VERBALIZED BY PT. - Last Documented On 01/25/2023 8:54AM ; [facility] PT TO CALL WITH ANY CHANGE IN STATUS ALL QUESTIONS ANSWERED WITH UNDERSTANDING VERBALIZED BY PT. - Last Documented On 01/25/2023 8:54AM ; [facility] Instructions to patient Instructed to call if excess herminia bleeding or abdominal/pelvic pain Last Documented On 8:33AM ; [facility] Instructions For Patient: Mo nthly Self Breast Exam Last Documented On 3 8:33AM ; [facility] Recommend diet and exercise at least 30 min three times per week Last Documented On 3 8:33AM ; [facility] Education and Decision Aids were provided during visit for: Patient Education: Daily kenny cium and vitamin D Last Documented On 3 8:33AM ; [facility] Assessments Includes: Assessments from this encounter Findings - [Z01.419 - Encounter for gynecological examination (general) (routine) without abnormal findings] NORMAL FEMALE EXAM - Last Documented On 01/25/2023 8:54AM ; [facility] - [Z12.4 - Encounter for screening for malignant neoplasm of cervix] Screen malignant neoplasm cervix - Last Documented On 01/25/2023 8:54AM ; [facility] Instructions Includes: Instructions from this encounter Instructions to patient Instructed to call if excess herminia bleeding or abdominal/pelvic pain Last Documented On 3 8:33AM ; [facility] Instructions For Patient: Mo nthly Self Breast Exam Last Documented On 3 8:33AM ; [facility] Recommend diet and exercise at least 30 min three times per week Last Documented On 3 8:33AM ; [facility] Education and Decision Aids were provided during visit for: Patient Education: Daily kenny cium and vitamin D Last Documented On 3 8:33AM ; [facility] Medical Equipment - Implanted Devices [...] On 0 8:14AM By GALE CHAN ; [facility] Naproxen 500 MG Oral Tablet 11/28/2019 - 12/03/2019 Provider: GALE MONTIEL BC Diagnosis: Postmenopausal b leeding One tablet twice a day USE A S DIRECTED W/FOOD DON'T EXCEED 2 IN 24 HOURS Last Documented On 0 3:10PM By GALE CHAN ; [facility] Medications Administered Includes: Administered Medications from this encounter No Administered Medications Recorded Vital Signs Includes: Vital Signs from this encounter Vital Name 01/25/2023 08:30A Blood Pressure Sitting (mmHg) 122/80 Temp-Oral (F) 98.4 Height (in) 66 Weight (lb) 207.4 Body Mass Index 33.5 Body Surface Area 2 Last Documented: On 01/25/2023 8:31AM ; [facility] Results Includes: Results discussed during this encounter No Results Recorded For Specified Dates History of Present Illness Includes: History of Present Illness from this encounter HPI - Allergy list reviewed - Medication list reviewed Social History Description Last Updated A social drinker 01/25/2023 Last Documented On 3 8:54AM ; [facility] Alcohol use: 2 drinks or less per day Last Documented On 3 8:54AM ; [facility] Caffeine use 01/25/2023 Last Documented On 3 8:54AM ; [facility] Daily tea consumption 01/25/2023 Last Documented On 3 8:54AM ; [facility] Education history 01/25/2023 Last Documented On 3 8:54AM ; [facility] Educational level 01/25/2023 Last Documented On 3 8:54AM ; [facility] Marital history 01/25/2023 Last Documented On 3 8:54AM ; [facility] Not a smoker 01/25/2023 Last Documented On 3 8:54AM ; [facility] Not using alcohol 01/25/2023 Last Documented On 3 8:54AM ; [facility] Not using drugs 01/25/2023 Last Documented On 3 8:54AM ; [facility] Personal history in remission fo r brain cancer 01/25/2023 Last Documented On 3 8:54AM ; [facility] Sexually active 01/25/2023 Last Documented On 3 8:54AM ; [facility] Sexually active with 1 partners in the l ast year 01/25/2023 Last Documented On 3 8:54AM ; [facility] Social history unchanged 01/25/2023 Last Documented On 3 8:54AM ; [facility] Tobacco non-user 01/25/2023 Last Documented On 3 8:54AM ; [facility] Alcohol use occ 01/25/2023 Last Documented On 3 8:54AM ; [facility] Not exercising regularly 01/25/2023 Last Documented On 3 8:54AM ; [facility] Smoking Status Unknown Procedures and Surgical History Includes: Procedures from this encounter Procedures Code Diagnosis Performing Provider Service L ocation Service Date education and instructions Last Documented On 3 8:33AM ; [facility] explanation of plan Pt to defer dexa, in surance will not pay for testing Last Documented On 3 8:53AM ; [facility] medical regimen review Last Documented On 3 8:33AM ; [facility] Urged Exercise and Diet , exercise at le ast 30 min three times per week Last Documented On 3 8:33AM ; [facility] cervical Pap smear 80161 Last Documented On 3 8:33AM ; [facility] history of cervical Pap smear 01/2022 WNL [id number] Last Documented On 3 8:26AM ; [facility] Surgical History Last Updated Surgical / procedural histor y knee surgery ~shoulder surgery ~LTCS ~RIGHT KNEE REPLACEMENT 10/2106/18/2014 Last Documented On 3 8:22AM ; [facility] Recent change to surgical history RIGHT KNEE REPLACEMENT 10/2106/18/2014 Last Documented On 3 8:22AM ; [facility] Medical History Includes: Medical History addressed during this encounter Description Last Updated Primary Care Provider: Teresa Monreal 01/25/2023 Last Documented On 3 8:54AM ; [facility] Last pap smear date 01/24/2022 3 Last Documented On 3 8:54AM ; [facility] Result: normal 01/25/2023 Last Documented On 3 8:54AM ; [facility] A mammogram was performed 01/25/2023 Last Documented On 3 8:54AM ; [facility] section 01/25/2023 Last Documented On 3 8:54AM ; [facility] Vaginal delivery 01/25/2023 Last Documented On 3 8:54AM ; [facility] History of diaignostic fiberoptic colono scopy 201901/25/2023 Last Documented On 3 8:54AM ; [facility] History of screening mammogram was perfo rmed 03/202201/25/2023 Last Documented On 3 8:54AM ; [facility] LMP: 09/09/2019 10/17/2019 Last Documented On 3 8:22AM ; [facility] Sexually active one partner 10/17/2019 Last Documented On 3 8:22AM ; [facility] Contraception: vasectomy 05/09/2011 Last Documented On 3 8:22AM ; [facility] 2 05/09/2011 Last Documented On 3 8:22AM ; [facility] Para 2 05/09/2011 Last Documented On 3 8:22AM ; [facility] knee surgery 05/13/2009 Last Documented On 3 8:22AM ; [facility] 2 living children 05/13/2009 Last Documented On 3 8:22AM ; [facility] Family History Includes: Family History addressed during this encounter Description Last Updated Maternal grandmother's histo ry of malignant female breast neoplasm MATERNAL GRANDMOTHER 06/30/2016 Last Documented On 3 8:22AM ; [facility] Paternal history of diabetes mellitus FA THER 06/23/2015 Last Documented On 3 8:22AM ; [facility] Review of Systems Includes: Review of Systems [...] - ESTABLISHED PT GALE GARVIN RN SHMUEL [facility] 01/26/20 23 8:12AM 8:51AM Screen Malignant Neoplasm Cervix,Normal Female Exam Insurance Includes: Active Insurance Policies Plan Name Member ID Group # Subscriber Relationship Effect herminia Dates 1 - [facility] [id number] YUAN kowalski Clinical Notes Includes: Clinical Notes from this encounter * Progress note Date Encounter Last Documented by 01/25/2023 [facility]OM[facility] - ESTABLISHED PT Last documented on 01/25/2023; 8:54 AM, GALE GARVIN RN SHMUEL ; [facility] Active Problems & Conditions - U07.1 - [...] vitamin D Plan StartCited - 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
--- OUTSIDE RECORDS SUMMARY | 2024-05-08 08:20 | XMS_ITS | Clinical Summary ---
Author Organization [facility] [[email or web address]] Address [address] [place] [address] Phone Care Team Providers Care Scrape Gatherer Name Role Phone MIRIAM DHALIWAL, IVETH Drummond Unavailable [phone] Reason for Visit and Chief Complaint CHART UPDATE Problems Includes: Problems addressed during this encounter and other active Problems All Visits Onset Date Resolved Date Provider Condition S tatus Coronavirus Covid-19 Infection 01/20/2021 GALE GARVIN RN SHMUEL Active Last Documented On 1 10:17AM ; [facility] Plan of Treatment Pending Tests Order Diagnosis Results Due Ordering Provider Ultrasound (OB) - ULTRASOUND Pelvic w/TVT (TransVag) Postmenopausal bleeding 03/10/20 GALE GARVIN RN SHMUEL Last Documented On 1 10:49AM ; [facility] Assessments Includes: Assessments from this encounter Findings - Postmenopausal bleeding - Last Documented On 12/05/2019 8:11AM ; [facility] Medical Equipment - Implanted Devices Includes: [...] DAYS OF EACH MONTH WITH FOOD Pharmacy: [facility] [address] , [place], [address] - Last Documented On 0 8:14AM By GALE CHAN ; [facility] Past Medications on file Naproxen 500 MG Oral Tablet 11/28/2019 - 12/03/2019 Provider: GALE HERNANDEZ Diagnosis: Postmenopausal b leeding One tablet twice a day USE A S DIRECTED W/FOOD DON'T EXCEED 2 IN 24 HOURS Last Documented On 0 3:10PM By GALE CHAN ; [facility] Medications Administered Includes: Administered Medications from this encounter No Administered Medications Recorded Results Includes: Results discussed during this encounter PATHOLOGY SPECIMEN [facility] La boratory Ordered by GALE GARVIN RN SHMUEL on 11/28/2019 [address] [facility], [place], [address] Collected: 11/28/2019 Report ed: 12/05/2019 06:49 tel: Last Documented On 0 8:11AM ; [facility] Reviewed by GALE GARVIN RN SHMUEL on 12/05/2019; All test results are final unless otherwise noted. PATH YES None Last Documented On 12/05/2019 7:32AM ; [facility] Note: Responsible Observer: (KAREN) PATHOLOGY SPECIMEN See Note None Last Documented On 12/05/2019 7:32AM ; [facility] Note: Performing Lab: [address] [address]Accession #: [id number]/Age/Gender: 1970 (Age: 49) / FProcedure Date: 11/28/2019SPECIMEN(S) RECEIVEDA:Endometrium, curettageOTHER CASE [id number] PATHOLOGIC DIAGNOSISA. Endometrium, curettage: - Inactive-appearing endometrium [...] 10/2106/18/2014 Last Documented On 0 7:56AM ; [facility] [[email or web address]] Recent change to surgical history RIGHT KNEE REPLACEMENT 10/2106/18/2014 Last Documented On 0 7:56AM ; [facility] [[email or web address]] Medical History Includes: Medical History addressed during this encounter Description Last Updated Last pap smear date 10/17/2019 01/25/2023 Last Documented On 0 7:56AM ; [facility] [[email or web address]] Result: normal 01/25/2023 Last Documented On 0 7:56AM ; [facility] A mammogram was performed 01/25/2023 Last Documented On 0 7:56AM ; [facility] Last mammogram date: 11/19/2019 2 Last Documented On 0 7:56AM ; [facility] [[email or web address]] Result: normal 11/28/2019 Last Documented On 0 7:56AM ; [facility] [[email or web address]] History of Pap smear done 07/25/2018 07/0 12/2019 Last Documented On 0 7:56AM ; [facility] LMP: 09/09/2019 10/17/2019 Last Documented On 0 7:56AM ; [facility] Sexually active one partner 10/17/2019 Last Documented On 0 7:56AM ; [facility] [[email or web address]] Patient recently had a dexa scan 019 Last Documented On 0 7:56AM ; [facility] Result: abnormal Ascus 07/03/2017 Last Documented On 0 7:56AM ; [facility] No recent change in medical history 04/12 Last Documented On 0 7:56AM ; [facility] Contraception: vasectomy 05/09/2011 Last Documented On 0 7:56AM ; [facility] 2 05/09/2011 Last Documented On 0 7:56AM ; [facility] Para 2 05/09/2011 Last Documented On 0 7:56AM ; [facility] knee surgery 05/13/2009 Last Documented On 0 7:56AM ; [facility] 2 living children 05/13/2009 Last Documented On 0 7:56AM ; [facility] Partner with vasectomy 05/13/2009 Last Documented On 0 7:56AM ; [facility] Family History Includes: Family History addressed during this encounter Description Last Updated Maternal grandmother's histo ry of malignant female breast neoplasm MATERNAL GRANDMOTHER 06/30/2016 Last Documented On 0 7:56AM ; [facility] Paternal history of diabetes mellitus FA THER 06/23/2015 Last Documented On 0 7:56AM ; [facility] Family history of diabetes mellitus FATH ER 06/18/2014 Last Documented On 0 7:56AM ; [facility] Family history of malignant female breas t neoplasm MATERNAL GRANDMOTHER 06/18/2014 Last Documented On 0 7:56AM ; [facility] Family history unchanged 06/18/2014 Last Documented On 0 7:56AM ; [facility] Review of Systems Includes: Review of [...] Subscriber Relationship Effect herminia Dates 1 - [facility] [id number] YUAN kowalski Clinical Notes Includes: Clinical Notes from this encounter No Clinical Notes Recorded
--- OUTSIDE RECORDS SUMMARY | 2024-05-08 08:20 | XMS_ITS | Clinical Summary ---
Author Organization [facility] Address [address] [place] [address] Phone Care Team Providers Care Brooch And Bracelet Maker Name Role Phone MIRIAM DHALIWAL, IVETH Drummond Unavailable [phone] Reason for Visit and Chief Complaint gynecologic annual exam - The Chief Complaint is: WWE Problems Includes: Problems addressed during this encounter and other active Problems All Visits Onset Date Resolved Date Provider Condition S tatus Coronavirus Covid-19 Infection 01/20/2021 GALE GARVIN RN SHMUEL Active Last Documented On 1 10:17AM ; [facility] Plan of Treatment - Weight loss diet - Last Documented On 01/24/2022 8:45AM ; [facility] - Clinical summary provided to patient - Last Documented On 01/24/2022 8:45AM ; [facility] PT TO CALL WITH ANY CHANGE IN STATUS ALL QUESTIONS ANSWERED WITH UNDERSTANDING VERBALIZED BY PT. - Last Documented On 01/24/2022 8:45AM ; [facility] Pending Tests Order Diagnosis Results Due Ordering P rovider Radiology @ other - Ultrasound Pelvic U/S w/TVT (TransVag) Endometrial hyperplasia, unspecified 02/07/22 GALE GARVIN RN SHMUEL Last Documented On 3 1:52PM ; [facility] Instructions to patient Instructed to call if excess herminia bleeding or abdominal/pelvic pain Last Documented On 2 8:23AM ; [facility] Instructions For Patient: Mo nthly Self Breast Exam Last Documented On 2 8:23AM ; [facility] Recommend diet and exercise at least 30 min three times per week Last Documented On 2 8:23AM ; [facility] Education and Decision Aids were provided during visit for: Patient Education: Daily kenny cium and vitamin D Last Documented On 2 8:23AM ; [facility] Assessments Includes: Assessments from this encounter Findings - NORMAL FEMALE EXAM - Last Documented On 01/24/2022 8:45AM ; [facility] - Endometrial hyperplasia h/o - Last Documented On 01/24/2022 8:45AM ; [facility] - Screen malignant neoplasm cervix - Last Documented On 01/24/2022 8:45AM ; [facility] Instructions Includes: Instructions from this encounter Instructions to patient Instructed to call if excess herminia bleeding or abdominal/pelvic pain Last Documented On 2 8:23AM ; [facility] Instructions For Patient: Mo nthly Self Breast Exam Last Documented On 2 8:23AM ; [facility] Recommend diet and exercise at least 30 min three times per week Last Documented On 2 8:23AM ; [facility] Education and Decision Aids were provided during visit for: Patient Education: Daily kenny cium and vitamin D Last Documented On 2 8:23AM ; [facility] Medical Equipment - Implanted Devices [...] On 0 8:14AM By GALE CHAN ; [facility] Naproxen 500 MG Oral Tablet 11/28/2019 - 12/03/2019 Provider: GALE MONTIEL BC Diagnosis: Postmenopausal b leeding One tablet twice a day USE A S DIRECTED W/FOOD DON'T EXCEED 2 IN 24 HOURS Last Documented On 0 3:10PM By GALE CHAN ; [facility] Medications Administered Includes: Administered Medications from this encounter No Administered Medications Recorded Vital Signs Includes: Vital Signs from this encounter Vital Name 01/24/2022 08:14A Blood Pressure Sitting L 112/78 BP Cuff Size Regular Temp-Oral (F) 97.1 Height (in) 66 Weight (lb) 214 Body Mass Index 34.5 Body Surface Area 2.1 Last Documented: On 01/24/2022 8:17AM ; [facility] Results Includes: Results discussed during this encounter No Results Recorded For Specified Dates History of Present Illness Includes: History of Present Illness from this encounter HPI - Allergy list reviewed - Medication list reviewed - Primary Care Provider: Jocelin Social History Description Last Updated Personal history in remission fo r brain cancer 01/24/2022 Last Documented On 2 8:45AM ; [facility] A social drinker 01/24/2022 Last Documented On 2 8:45AM ; [facility] Alcohol use: 2 drinks or less per day Last Documented On 2 8:45AM ; [facility] Caffeine use 01/24/2022 Last Documented On 2 8:45AM ; [facility] Daily tea consumption 01/24/2022 Last Documented On 2 8:45AM ; [facility] Education history 01/24/2022 Last Documented On 2 8:45AM ; [facility] Educational level 01/24/2022 Last Documented On 2 8:45AM ; [facility] Marital history 01/24/2022 Last Documented On 2 8:45AM ; [facility] Not a smoker 01/24/2022 Last Documented On 2 8:45AM ; [facility] Not using drugs 01/24/2022 Last Documented On 2 8:45AM ; [facility] Sexually active 01/24/2022 Last Documented On 2 8:45AM ; [facility] Social history unchanged 01/24/2022 Last Documented On 2 8:45AM ; [facility] Tobacco non-user 01/24/2022 Last Documented On 2 8:45AM ; [facility] Not using alcohol 01/24/2022 Last Documented On 2 8:45AM ; [facility] Sexually active with 1 partners in the l ast year 01/24/2022 Last Documented On 2 8:45AM ; [facility] Smoking Status Unknown Procedures and Surgical History Includes: Procedures from this encounter Procedures Code Diagnosis Performing Provider Service L ocation Service Date education and instructions Last Documented On 2 8:23AM ; [facility] explanation of plan Pt to co ntahi insurance for coverage on pelvic U/S and call if another dx. needed to obtain scan Last Documented On 2 8:44AM ; [facility] medical regimen review Last Documented On 2 8:23AM ; [facility] Urged Exercise and Diet , exercise at ast 30 min three times per week Last Documented On 2 8:23AM ; [facility] a mammogram was performed 02/2021 Last Documented On 2 8:13AM ; [facility] cervical Pap smear 71089 Last Documented On 2 8:23AM ; [facility] history of cervical Pap smear 01/2021 96839 Last Documented On 2 8:13AM ; [facility] a colonoscopy was performed 01/2020 Last Documented On 2 8:13AM ; [facility] Surgical History Last Updated Surgical / procedural histor y knee surgery ~shoulder surgery ~LTCS ~RIGHT KNEE REPLACEMENT 10/2106/18/2014 Last Documented On 2 8:12AM ; [facility] Recent change to surgical history RIGHT KNEE REPLACEMENT 10/2106/18/2014 Last Documented On 2 8:12AM ; [facility] Medical History Includes: Medical History addressed during this encounter Description Last Updated Result: normal 01/25/2023 Last Documented On 2 8:12AM ; [facility] A mammogram was performed 01/25/2023 Last Documented On 2 8:12AM ; [facility] History of colonoscopy fiberoptic was pe rformed 01/10/2020 01/25/2023 Last Documented On 2 8:12AM ; [facility] History of screening mammogram was perfo rmed 02/202101/24/2022 Last Documented On 2 8:45AM ; [facility] Last mammogram date: 02/202101/24/2022 Last Documented On 2 8:45AM ; [facility] Last pap smear date 01/202101/24/2022 Last Documented On 2 8:45AM ; [facility] LMP: 09/09/2019 10/17/2019 Last Documented On 2 8:12AM ; [facility] Sexually active one partner 10/17/2019 Last Documented On 2 8:12AM ; [facility] Contraception: vasectomy 05/09/2011 Last Documented On 2 8:12AM ; [facility] 2 05/09/2011 Last Documented On 2 8:12AM ; [facility] Para 2 05/09/2011 Last Documented On 2 8:12AM ; [facility] knee surgery 05/13/2009 Last Documented On 2 8:12AM ; [facility] 2 living children 05/13/2009 Last Documented On 2 8:12AM ; [facility] Partner with vasectomy 05/13/2009 Last Documented On 2 8:12AM ; [facility] Family History Includes: Family History addressed during this encounter Description Last Updated Maternal grandmother's histo ry of malignant female breast neoplasm MATERNAL GRANDMOTHER 06/30/2016 Last Documented On 2 8:12AM ; [facility] Paternal history of diabetes mellitus FA THER 06/23/2015 Last Documented On 2 8:12AM ; [facility] Family history of diabetes mellitus FATH ER 06/18/2014 Last Documented On 2 8:12AM ; [facility] Family history of malignant female breas t neoplasm MATERNAL GRANDMOTHER 06/18/2014 Last Documented On 2 8:12AM ; [facility] Family history unchanged 06/18/2014 Last Documented On 2 8:12AM ; [facility] Review of Systems Includes: Review of [...] WELL WOMAN - ESTABLISHED PT GALE MONTIEL [facility] 01/25/20 22 8:09AM 8:45AM Screen Malignant Neoplasm Cervix,Normal Female Exam,Endometri al Hyperplasia Insurance Includes: Active Insurance Policies Plan Name Member ID Group # Subscriber Relationship Effect herminia Dates 1 - [facility] [id number] YUAN kowalski Clinical Notes Includes: Clinical Notes from this encounter No Clinical Notes Recorded
--- OUTSIDE RECORDS SUMMARY | 2024-05-08 08:20 | XMS_ITS | Clinical Summary ---
Author Organization [facility] Address [address] [place] [address] Phone Care Team Providers Care High Wire Artist Name Role Phone MIRIAM DHALIWAL, IVETH Drummond Unavailable [phone] Reason for Visit and Chief Complaint CHART UPDATE Problems Includes: Problems addressed during this encounter and other active Problems All Visits Onset Date Resolved Date Provider Condition S tatus Coronavirus Covid-19 Infection 01/20/2021 GALE GARVIN RN SHMUEL Active Last Documented On 1 10:17AM ; [facility] Plan of Treatment No Plan [...] On 0 8:14AM By GALE CHAN ; [facility] Naproxen 500 MG Oral Tablet 11/28/2019 - 12/03/2019 Provider: GALE GARVIN RN SHMUEL Diagnosis: Postmenopausal b leeding One tablet twice a day USE A S DIRECTED W/FOOD DON'T EXCEED 2 IN 24 HOURS Last Documented On 0 3:10PM By GALE CHAN ; [facility] Medications Administered Includes: Administered [...] 10/2106/18/2014 Last Documented On 4 12:40PM ; [facility] Recent change to surgical history RIGHT KNEE REPLACEMENT 10/2106/18/2014 Last Documented On 4 12:40PM ; [facility] Medical History Includes: Medical History addressed during this encounter Description Last Updated Primary Care Provider: Teresa Monreal 01/25/2023 Last Documented On 4 12:40PM ; [facility] Last pap smear date 01/24/2022 3 Last Documented On 4 12:40PM ; [facility] Result: normal 01/25/2023 Last Documented On 4 12:40PM ; [facility] A mammogram was performed 01/25/2023 Last Documented On 4 12:40PM ; [facility] section 01/25/2023 Last Documented On 4 12:40PM ; [facility] Vaginal delivery 01/25/2023 Last Documented On 4 12:40PM ; [facility] History of diaignostic fiberoptic colono scopy 201901/25/2023 Last Documented On 4 12:40PM ; [facility] History of screening mammogram was perfo rmed 03/202201/25/2023 Last Documented On 4 12:40PM ; [facility] Last mammogram date: 02/202101/24/2022 Last Documented On 4 12:40PM ; [facility] LMP: 09/09/2019 10/17/2019 Last Documented On 4 12:40PM ; [facility] Sexually active one partner 10/17/2019 Last Documented On 4 12:40PM ; [facility] Patient recently had a dexa scan 019 Last Documented On 4 12:40PM ; [facility] Contraception: vasectomy 05/09/2011 Last Documented On 4 12:40PM ; [facility] 2 05/09/2011 Last Documented On 4 12:40PM ; [facility] Para 2 05/09/2011 Last Documented On 4 12:40PM ; [facility] knee surgery 05/13/2009 Last Documented On 4 12:40PM ; [facility] 2 living children 05/13/2009 Last Documented On 4 12:40PM ; [facility] Partner with vasectomy 05/13/2009 Last Documented On 4 12:40PM ; [facility] Family History Includes: Family History addressed during this encounter Description Last Updated Maternal grandmother's histo ry of malignant female breast neoplasm MATERNAL GRANDMOTHER 06/30/2016 Last Documented On 4 12:40PM ; [facility] Paternal history of diabetes mellitus FA THER 06/23/2015 Last Documented On 4 12:40PM ; [facility] Family history of diabetes mellitus FATH ER 06/18/2014 Last Documented On 4 12:40PM ; [facility] Family history of malignant female breas t neoplasm MATERNAL GRANDMOTHER 06/18/2014 Last Documented On 4 12:40PM ; [facility] Family history unchanged 06/18/2014 Last Documented On 4 12:40PM ; [facility] Review of Systems Includes: Review [...] Subscriber Relationship Effect herminia Dates 1 - [facility] [id number] YUAN kowalski Clinical Notes Includes: Clinical Notes from this encounter * Progress note Date Encounter Last Documented by 06/09/2023 CHART UPDATE Last documented on 06/09/2023; 12:48 PM, GALE GARVIN RN NP ; [facility] Active Problems & Conditions [...] BRITTNEY and see other task about contacting [facility]. Thanks EndCited StartCited - Other signs [...]
--- OUTSIDE RECORDS SUMMARY | 2024-05-08 08:20 | XMS_ITS | Clinical Summary ---
Author Organization [facility] Address [address] [place] [address] Phone Care Team Providers Care Telemarketer Name Role Phone MIRIAM DHALIWAL, IVETH Drummond Unavailable [phone] Reason for Visit and Chief Complaint gynecologic annual exam - The Chief Complaint is: WWE, no problems Problems Includes: Problems addressed during this encounter and other active Problems Current Visit Onset Date Resolved Date Provider Liana miller Status Coronavirus Covid-19 Infection 01/20/2021 GALE GARVIN RN [facility] Active Last Documented On 1 10:17AM ; [facility] Plan of Treatment - Weight loss diet - Last Documented On 01/20/2021 10:24AM ; [facility] - Clinical summary provided to patient - Last Documented On 01/20/2021 10:24AM ; [facility] PT TO CALL WITH ANY CHANGE IN STATUS ALL QUESTIONS ANSWERED WITH UNDERSTANDING VERBALIZED BY PT. - Last Documented On 01/20/2021 10:24AM ; [facility] Pending Tests Order Diagnosis Results Due Ordering P rovider Radiology @ other DEXA (to be scheduled) Asymptomatic menopausal state 02/03/21 GALE GARVIN RN [facility] Last Documented On 2 8:38AM ; [facility] Radiology @ other - Ultrasound Pelvic w/TVT (TransVag) Endometrial hyperplasia, unspecified 02/03/21 GALE GARVIN RN [facility] Last Documented On 2 8:38AM ; [facility] Instructions to patient Instructed to call if excess herminia bleeding or abdominal/pelvic pain Last Documented On 9:30AM ; [facility] Instructions For Patient: Mo nthly Self Breast Exam Last Documented On 9:30AM ; [facility] Recommend diet and exercise at least 30 min three times per week Last Documented On 9:30AM ; [facility] Education and Decision Aids were provided during visit for: Patient Education: Daily kenny cium and vitamin D Last Documented On 9:30AM ; [facility] Assessments Includes: Assessments from this encounter Findings - NORMAL FEMALE EXAM - Last Documented On 01/20/2021 10:24AM ; [facility] - Screen malignant neoplasm cervix - Last Documented On 01/20/2021 10:24AM ; [facility] Instructions Includes: Instructions from this encounter Instructions to patient Instructed to call if excess herminia bleeding or abdominal/pelvic pain Last Documented On 9:30AM ; [facility] Instructions For Patient: Mo nthly Self Breast Exam Last Documented On 9:30AM ; [facility] Recommend diet and exercise at least 30 min three times per week Last Documented On 9:30AM ; [facility] Education and Decision Aids were provided during visit for: Patient Education: Daily kenny cium and vitamin D Last Documented On 9:30AM ; [facility] Medical Equipment - Implanted Devices [...] On 0 8:14AM By GALE CHAN ; [facility] Naproxen 500 MG Oral Tablet 11/28/2019 - 12/03/2019 Provider: GALE MONTIEL BC Diagnosis: Postmenopausal b leeding One tablet twice a day USE A S DIRECTED W/FOOD DON'T EXCEED 2 IN 24 HOURS Last Documented On 0 3:10PM By GALE CHAN ; [facility] Medications Administered Includes: Administered Medications from this encounter No Administered Medications Recorded Vital Signs Includes: Vital Signs from this encounter Vital Name 01/20/2021 09:14A Blood Pressure Sitting L 118/82 BP Cuff Size Regular Temp-Oral (F) 98.2 Height (in) 66 Weight (lb) 204 Body Mass Index (kg/m2) 32.9 Body Surface Area (m2) 2.0 Last Documented: On 01/20/2021 9:18AM ; [facility] Results Includes: Results discussed during this encounter PATHOLOGY SPECIMEN [facility] La boratory Ordered by GALE GARVIN RN [facility] on 11/28/2019 [address] [facility] [place], [address] Collected: 11/28/2019 Report ed: 12/05/2019 06:49 tel: Last Documented On 0 8:11AM ; [facility] Reviewed by GALE GARVIN RN [facility] on 12/05/2019; All test results are final unless otherwise noted. PATHOLOGY SPECIMEN See Note None Last Documented On 12/05/2019 7:32AM ; [facility] Note: Performing Lab: [place] [id number] #: [id number]/Age/Gender: 1970 (Age: 49) / FProcedure Date: 11/28/2019SPECIMEN(S) RECEIVEDA:Endometrium, curettageOTHER CASE [id number] PATHOLOGIC DIAGNOSISA. Endometrium, curettage: - Inactive-appearing endometrium [...] In c. Ordered by GALE GARVIN RN [facility] on 0 10/17/2019 Collected: 10/18/2019 Reported: 10/19/19 20 05:32 Last Documented On 0 3:27PM ; [facility] Reviewed by GALE GARVIN RN [facility] on 10/21/2019; All test results are final unless otherwise noted. FSH 111.6 mIU/mL N (Normal) Last Documented On 10/21/2019 3:27PM ; [facility] Note: Reference Range Follicular Phase [...] drinker 01/20/2021 Last Documented On 10:24AM ; [facility] Alcohol use: 2 drinks or less per day Last Documented On 10:24AM ; [facility] Caffeine use 01/20/2021 Last Documented On 1 10:24AM ; [facility] Daily tea consumption 01/20/2021 Last Documented On 10:24AM ; [facility] Education history 01/20/2021 Last Documented On 10:24AM ; [facility] Educational level 01/20/2021 Last Documented On 10:24AM ; [facility] Marital history 01/20/2021 Last Documented On 10:24AM ; [facility] Not a smoker 01/20/2021 Last Documented On 10:24AM ; [facility] Not using drugs 01/20/2021 Last Documented On 10:24AM ; [facility] Personal history 01/20/2021 Last Documented On 10:24AM ; [facility] Sexually active 01/20/2021 Last Documented On 10:24AM ; [facility] Social history unchanged 01/20/2021 Last Documented On 10:24AM ; [facility] Tobacco non-user 01/20/2021 Last Documented On 10:24AM ; [facility] Smoking Status Unknown Procedures and Surgical History Includes: Procedures from this encounter Procedures Code Diagnosis Performing Provider Service L ocation Service Date education and instructions Last Documented On 9:30AM ; [facility] explanation of plan Pt. agre es to obtain U/S for endometrial stripe measurements and will be contacted with results for plan of care. All questions answered Last Documented On 10:24AM ; [facility] medical regimen review Last Documented On 9:30AM ; [facility] Urged Exercise and Diet , exercise at le ast 30 min three times per week Last Documented On 9:30AM ; [facility] cervical Pap smear 28377 Last Documented On 9:30AM ; [facility] history of cervical Pap smear 10/17/2019 02847 Last Documented On 9:20AM ; [facility] Surgical History Last Updated Surgical / procedural histor y knee surgery ~shoulder surgery ~LTCS ~RIGHT KNEE REPLACEMENT 10/2106/18/2014 Last Documented On 9:14AM ; [facility] Recent change to surgical history RIGHT KNEE REPLACEMENT 10/2106/18/2014 Last Documented On 9:14AM ; [facility] Medical History Includes: Medical History addressed during this encounter Description Last Updated Last pap smear date 10/17/2019 01/25/2023 Last Documented On 9:14AM ; [facility] A mammogram was performed 01/25/2023 Last Documented On 9:14AM ; [facility] Last mammogram date: 11/19/2019 2 Last Documented On 1 9:14AM ; [facility] Result: normal 01/20/2021 Last Documented On 1 10:24AM ; [facility] History of colonoscopy fiberoptic was pe rformed 01/10/2020 01/20/2021 Last Documented On 1 10:24AM ; [facility] History of screening mammogram was perfo rmed 11/19/2019 01/20/2021 Last Documented On 1 10:24AM ; [facility] LMP: 09/09/2019 10/17/2019 Last Documented On 1 9:14AM ; [facility] Sexually active one partner 10/17/2019 Last Documented On 1 9:14AM ; [facility] Patient recently had a dexa scan 019 Last Documented On 1 9:14AM ; [facility] Contraception: vasectomy 05/09/2011 Last Documented On 1 9:14AM ; [facility] 2 05/09/2011 Last Documented On 1 9:14AM ; [facility] Para 2 05/09/2011 Last Documented On 1 9:14AM ; [facility] knee surgery 05/13/2009 Last Documented On 1 9:14AM ; [facility] 2 living children 05/13/2009 Last Documented On 1 9:14AM ; [facility] Partner with vasectomy 05/13/2009 Last Documented On 1 9:14AM ; [facility] Family History Includes: Family History addressed during this encounter Description Last Updated Maternal grandmother's histo ry of malignant female breast neoplasm MATERNAL GRANDMOTHER 06/30/2016 Last Documented On 1 9:14AM ; [facility] Paternal history of diabetes mellitus FA THER 06/23/2015 Last Documented On 1 9:14AM ; [facility] Family history of diabetes mellitus FATH ER 06/18/2014 Last Documented On 1 9:14AM ; [facility] Family history of malignant female breas t neoplasm MATERNAL GRANDMOTHER 06/18/2014 Last Documented On 1 9:14AM ; [facility] Family history unchanged 06/18/2014 Last Documented On 1 9:14AM ; [facility] Review of Systems Includes: Review of Systems [...] - ESTABLISHED PT GALE GARVIN RN [facility] 01/21/20 21 9:08AM 10:01AM Normal Female Exam,Screen Malignant Neoplasm Cervix Insurance Includes: Active Insurance Policies Plan Name Member ID Group # Subscriber Relationship Effect herminia Dates 1 - [facility] [id number] YUAN kowalski Clinical Notes Includes: Clinical Notes from this encounter No Clinical Notes Recorded
--- NOTE | 2024-05-08 08:32 | ED.URI ---
HPI - URI/Sore Throat General Chief Complaint: Upper Respiratory Infection Stated Complaint: head congestion/ear pain Time Seen by Provider: 05/08/24 08:25 Source: patient, RN notes reviewed and old records reviewed Mode of arrival: ambulatory Limitations: no limitations History of Present Illness HPI Narrative: 54 year old female who presents to [facility] care with complaints of 3 days of sinus congestion drainage pressure to face with headache pain. Patient reports that she has had chills and sweats and has felt feverish. Patient has been taking NyQuil, DayQuil, Tylenol and Ibuprofen and also used Neti Pot for her symptoms. Patient reports that she awoke this morning ringing wet with sweat. Patient reports that she has had some cough since yesterday which is nonproductive, denies any shortness of breath MD elicited complaint: fever, cough, rhinorrhea, nasal congestion, sinus pain and other (ear pin) Pertinent past history: sinusitis Onset (ago): day(s) (3) Consistency: progressively worsening Severity: moderate Pain scale (0-10): 6 Description of mucous: clear and yellow Able to tolerate fluids by mouth: Yes Treatments prior to arrival: acetaminophen, ibuprofen and other (NyQuil, DayQuil Neti Pot) Related Data Allergies Allergy/AdvReac Type Severity Reaction Status Date / Time acetaminophen (From Percocet) Allergy Unknown Unknown Verified 03/26/24 16:33 oxycodone (From Percocet) Allergy Unknown Unknown Verified 03/26/24 16:33 Review of Systems Review of Systems: CONSTITUTIONAL: Reports malaise, chills, sweats, or fever. EYES: Denies visual changes, redness, or discharge. ENT: Reports rhinorrhea, congestion, sinus pain, left otalgia and no sore throat. CARDIOVASCULAR: Denies chest pain, palpitations, or edema. RESPIRATORY: Reports some cough.? Denies dyspnea. GASTROINTESTINAL: Denies abdominal pain, nausea, vomiting, diarrhea SKIN: Denies rash or itching. MUSCULOSKELETAL: Reports some myalgia. NEUROLOGIC: Reports headache. All systems reviewed & are unremarkable except as noted in HPI and below PMFSH Past Medical History Medical History (Updated 05/08/24 @ 08:53 by Kylee Cmaacho NP) Sinusitis COVID-19 05/2019 Right arm fracture surgical repair Surgical History Surgical History Previous section Total knee replacement status right Family History Family History Other Family history non-contributory Social History Social History Smoking status: Never smoker Alcohol intake: current Substance use type: does not use Living arrangements: with family Gender identity (if verbalized by the patient): Female Comments At time of signature, agree with nursing past medical, surgical, social and family history. There is no relevant family history pertinent to the presenting complaint Exam Narrative: GENERAL: Well-appearing, well-nourished, and in no acute distress. HEAD: Normocephalic EYES: PERRLA, conjunctivae clear ENT: Nares red, turbinates edematous and erythematous, clear to light yellow discharge, facial pressure and headache pain. Mucous membranes moist. Fluid noted to left TM with TM's pearly zarco with dull light reflex bilaterally; no tragal tenderness. Oropharynx erythematous without lesions. Tonsils not enlarged and without exudate, no drooling, no hoarseness, no trismus, uvula midline.post nasal drainage NECK: Supple. No lymphadenopathy CHEST: Clear to auscultation, breath sounds equal. No wheezing, rhonchi, rales, or stridor. No respiratory distress, speaks in full sentences. occasional cough, SAO2 98% on room air HEART: Regular rate and rhythm. No murmur heard. SKIN: Warm, dry, no rash. NEURO: Alert and oriented x3. PSYCH: Normal mood and affect Course Course Emergency Course: Patient is aware of diagnosis, understands and agrees to treatment plan.? Anticipatory guidance given.? Patient agrees to follow-up as directed and is aware of reasons to seek care at the emergency department. Portions of this record may have been created with voice recognition software Level of Care: Express Care Visit Vital Signs Vital signs: Vital Signs Temperature 37.5 C 05/08/24 08:12 Pulse Rate 85 05/08/24 08:12 Respiratory Rate 16 05/08/24 08:12 Blood Pressure 123/67 05/08/24 08:12 Pulse Oximetry 98 05/08/24 08:12 Oxygen Delivery Room Air 05/08/24 08:12 Temperature 37.5 C 05/08/24 08:12 Pulse Rate 85 05/08/24 08:12 Respiratory Rate 16 05/08/24 08:12 Blood Pressure 123/67 05/08/24 08:12 Pulse Oximetry 98 05/08/24 08:12 Oxygen Delivery Room Air 05/08/24 08:12 Reviewed MDM - URI/Sore Throat MDM Narrative Medical decision making narrative: Differential diagnosis considered: Hein virus, strep pharyngitis, allergic rhinitis, upper respiratory tract infection, sinusitis, rhinosinusitis, nasopharyngitis. viral pharyngitis, otitis media, otitis externa, pneumonia, bronchitis, viral cough syndrome, viral syndrome, and influenza.? Exam findings show no acute concerns or changes; patient is non-toxic appearing and is in no distress.? Patient is appropriate for outpatient treatment and follow-up. Differential Diagnosis Differential diagnosis: Likely upper respiratory infection, otitis media, sinusitis, viral infection and other (fluid left TM) Medical Records Attestation: I reviewed the patient's medical records. Lab Data Attestation: I reviewed the patient's lab results. Critical Care Time Critical Care Time Critical Care Time: No Discharge Plan Discharge Clinical Impression: Bacterial sinusitis Patient Disposition: Home, Self-Care Condition: Stable Instructions: Antibiotic Form, Sinusitis (ED) Additional Instructions: Increase fluids especially juices and water Fzhv-dpl-tnzqiyu cough and cold medicine of your choice for your symptoms Zyrtec Claritin or Rand daily Steroids as directed--take with food Tylenol or ibuprofen for any fever pain heat to the face 20-30 minutes 4-6 times a day for pain Salt water gargles, throat lozenges or throat sprays as desired Antibiotic as directed--finished the medication If your symptoms persist, change or worsen significantly before you can contact your personal physician then please, without delay, go to the emergency department for further evaluation. Follow-up with PCP in 7-10 days or sooner if needed Follow up with PCP soon in regards to your blood pressure which is elevated above threshold for referral. Blood pressure above 120/80 may indicate pre-hypertension. Minimal systolic elevation 123/67 Patient Language: Belizean Prescriptions: New amoxicillin-pot clavulanate 875-125 mg tablet 1 tablet PO Q12H Qty: 20 0RF Rx Instructions: take with food recommend probiotic while taking this medication or eat Activa yogurt methylprednisolone [Medrol (Steve)] 4 mg tablets,dose pack See Rx Instructions .ROUTE .COMPLEX Qty: 21 0RF Rx Instructions: orally per package directions Follow-up/Referrals: PHYSICIAN NOT ON STAFF,NONSTAFF [Primary Care Provider] - Time of Disposition: 08:51 Quality Xu Coma Scale Eyes: Open Verbal: Oriented and Alert Motor: Follows Commands Inland Coma Total Score: 15
== END 2024-05-08 08:58 | disposition home or self-care (01) ==
PROVIDERS: Emergency Provider Registered Nurse
DX: J32.9 Chronic sinusitis, unspecified (principal); Z86.16 Personal history of COVID-19
CPT/HCPCS: 99213; G0463

== ENCOUNTER 2024-08-09 15:49 | Outpatient (CLI) | payer OTHER, SELFPAY ==
--- NOTE | ~2024-08-09 | US_ITS ---
EXAMINATION: US pelvic complete w TV INDICATION: Evaluate endometrial thickness. Comparison:No prior studies for comparison. TECHNIQUE: Multiple transabdominal and endovaginal sonographic images of the pelvis performed. FINDINGS: The uterus measures 7.1 x 3.5 x 2.6 cm. No uterine fibroids identified. There is a nabothia n cyst measuring 1.2 cm. The endometrial complex measures 3 mm. The right ovary measures 2.8 x 1.4 x 1.8 cm and the left ovary measures 2.2 x 1.7 x 1.2 cm. There ar e small follicles in each ovary. Normal doppler signal in both ovaries. There is no free fluid in the pelvis. There are no abnormal masses seen on either side. IMPRESSION: 1. Unremarkable pelvic ultrasound. Reviewed, dictated and finalized at location A.
== END 2024-08-09 15:50 | disposition home or self-care (01) ==
PROVIDERS: Visit Provider Specialist
DX: N92.4 Excessive bleeding in the premenopausal period (principal)
CPT/HCPCS: 76830; 76856

== ENCOUNTER 2025-03-26 08:04 | Emergency (ER) | payer OTHER, SELFPAY ==
--- OUTSIDE RECORDS SUMMARY | 2025-03-26 08:14 | XMS_ITS | Patient Health Record ---
[facility] Address [address] [place] [address] Care Team Providers Care Sand Miller Name Role Phone AVELINO ROLDAN Unavailable [phone] Reason For Referral No Information Plan Of Treatment No Information
--- OUTSIDE RECORDS SUMMARY | 2025-03-26 08:14 | XMS_ITS | Clinical Summary ---
Author Organization [facility] Address [address] [facility], [address] [address] Phone Care Team Providers Care Nursing Clerk Name Role Phone Teresa Monreal METAL FURNITURE POLISHER, CARE PARTNER Primary Care Prov ider Katja Delarosa METAL FURNITURE POLISHER, CARE PARTNER Unavailable [phone] Rayne Schilling METAL FURNITURE POLISHER, CARE PARTNER Unavailable Allergies Active Allergy Reactions Criticality Noted Date Comments Oxycodone-Acetaminophen Hallucinations High 11/14/19 19 Medications semaglutide-we ight management (Wegovy) 0.5 MG/0.5ML Solution Auto-injector 0.5 mg by Subcutaneous route once a week. Active Tirzepatide (Mounjaro) 5 MG/0.5ML Solution Auto-injector by Subcutaneous route once a week. Mondays 025 Discontin ued(Patie nt Discharge ) spironolactone (ALDACTONE) 100 MG Tablet Take 100 mg by mouth daily. 025 Discontin ued(Patie nt Discharge ) thyroid (CAMPAIGN ANALYST Thyroid) 60 MG Tablet Take 60 mg by mouth daily. 025 Discontin ued(Patie nt Discharge ) cyanocobalamin (VITAMIN B12) 50 MCG Tablet Take by mouth daily. 025 Discontin ued(Patie nt Discharge ) Progesterone 200 MG Capsule Take 200 mg by mouth daily. Hazardous: Medication requires special safe handling and disposal. 025 Discontin ued(Patie nt Discharge ) testosterone (TESTOPEL) 25 MG PELLET by Implant route. WITH ESTROGEN 025 Discontin ued(Patie nt Discharge ) Active Problems Problem Noted Date Diagnosed Date KEON (obstructive sleep apnea) 08/05/2022 Resolved Problems Problem Noted Date Diagnosed Date Resolved Date Class 1 obesity due to exces s calories without serious comorbidity with body mass index (BMI) of 34.0 to 34.9 in adult 08/05/202210/2024 Encounters Date Type Department Care Team Description 02/19/2025 Travel 02/17/2025 Telephone [facility] G[facility]ology [facility] [address] [place] [address] Rik Ralph MD 02/11/2025 Telephone [facility] [address] [place] [address] Rik Ralph MD 02/05/2025 Telephone [facility] [address] [place] [address] Rik Ralph MD Procedure; Need Order from Last 3 Months Immunizations Immunization Administration Dates Next Due TDAP Vaccine 04/16/2019 Family History Medical History Relation Name Comments Congestive Heart Failure Father Breast Cancer Maternal Grandmother Cancer Maternal Grandmother No Known Problems Mother Relation Name Status Comments Father Maternal Grandfather Maternal Grandmother Mother Alive Paternal Grandfather Paternal Grandmother Social History Tobacco Use Types Packs/Day Years Used Date Smoking Tobacco: Never Smokeless Tobacco: Never Tobacco Cessation:Counseling Given: Not Answered Alcohol Use Standard Drinks/Week Comments Yes 0 (1 standard drink = 0.6 oz pur e alcohol) OCCASSIONALLY [facility] Utilities Answer Date Recorded In the past 12 months has e Signature, gas, oil, or water company threatened to shut off services in your home? No 07/15/2024 Social Connection and Isolation Panel Answer Date Recorded In a typical week, how many times do you talk on the phone with family, friends, or neighbors? More than three times a week 07/15/2024 Frequency of Social Gatherin gs with Friends and Family Not on file 07/15/2024 Attends Mandaeism Services Not on file 07/15 Active Member of Clubs or Organizations Not on f ile 07/15/2024 Attends Club or Organization Meetings Not on jose armando e 07/15/2024 Marital Status Not on file 07/15/2024 AUDIT-C Answer Date Recorded Q1: How often do you have a drink containing alc ohol? Monthly or less 07/15/2024 Average Number of Drinks Not on file 025 Frequency of Binge Drinking Not on file 10/2024 Overall Financial Resource Strain (CARDIA) Answe r Date Recorded How hard is it for you to pa y for the very basics like food, housing, medical care, and heating? Not hard at all 07/15/2024 PHQ-2 Answer Date Recorded Total Score - Questions 1-9 0 10/2024 [facility] - Occupational Stress Questionnaire Answer Date Recorded Do you feel stress - tense, restless, nervous, or anxious, or unable to sleep at night because your mind is troubled all the time - these days? Not at all 07/15/2024 Exercise Vital Sign Answer Date Recorde d On average, how many days pe r week do you engage in moderate to strenuous exercise (like a brisk walk)? 0 days 07/15/2024 On average, how many minutes do you engage in exercise at this level? 0 min 07/15/2024 Hunger Vital Sign Answer Date Recorded Within the past 12 months, y ou worried that your food would run out before you got the money to buy more. Never true 07/16/19 25 Within the past 12 months, t he food you bought just didn't last and you didn't have money to get more. Never true 07/15/2024 PRAPARE - Transportation Answer Date Re corded In the past 12 months, has l ack of transportation kept you from medical appointments or from getting medications? No 10/2024 In the past 12 months, has l ack of transportation kept you from meetings, work, or from getting things needed for daily living? No 07/15/2024 Housing Stability Vital Sign Answer Kehinde e Recorded In the last 12 months, was t here a time when you were not able to pay the mortgage or rent on time? No 05/25/2023 Number of Places Lived in the Last Year Not on f ile 05/25/2023 Unstable Housing in the Last Year Not on file 05/25/2023 Housing Stability Vital Sign Answer Kehinde e Recorded In the last 12 months, was t here a time when you were not able to pay the mortgage or rent on time? No 07/15/2024 Number of Times Moved in the Last Year Not on fi le 07/15/2024 At [facility] time [facility] the [facility] were you homeless or living in a halfway (including now)? No 07/15/2024 Education Answer Date Recorded What is the [...] Sign Reading Time Taken Comments Blood Pressure 94/86 07/15/2024 7:15 AM CDT Pulse 73 07/15/2024 7:15 AM CDT Temperature 36.6 C (97.9 F) 07/15/2024 7:15 AM CDT Respiratory Rate 16 07/15/2024 7:15 AM CDT Oxygen Saturation 97% 07/15/2024 7:15 AM CDT Inhaled Oxygen Concentration - - Weight 82 kg (180 lb 12.8 oz) 02/19/2025 1:00 PM OSTOMY CARE NURSE Height 167.6 cm (5' 6) 02/19/2025 1:00 PM OSTOMY CARE NURSE Body Mass Index 29.18 02/19/2025 1:00 PM OSTOMY CARE NURSE Plan of Treatment Upcoming Encounters Date Type Department Care Team (Late st Contact Info) Description 07/17/2025 7:30 AM CDT [facility] [address] [place] [phone] Teresa Monreal APRN, CARE PARTNER [address] [phone] Health Maintenance Due Date Last Done Comments Hepatitis C Virus (HCV) Screening 1968 Cologuard 2013 Pneumococcal Immunization (50+ years) (1 of 1 - PCV) 2018 Zoster Immunization (1 of 2) 2018 Immunochemical Fecal Occult Blood 10/16/2020 10/17/2019 Mammogram 05/25/2024 05/25/2023, 11/08, 11/19/2019, Additional history exists Influenza Immunization (#1) 2024 Colonoscopy 01/09/2025 01/10/2020 Colorectal Cancer Screening 01/09/2025 Pap Smear 02/19/2028 02/18/2025, 01/09, 10/22/2019, Additional history exists Td Immunization Every 10 Years (Adults With 1 Tdap) 04/16/2029 04/16/2019 Cervical Cancer Screening (CCS) 02/18/2030 HPV/Cotest 02/18/2030 02/18/2025, 10/08, 08/01/2018 Respiratory Syncytial Virus (RSV) Immunization (Adult) (1 - 1-dose 75+ series) 2043 DTaP/Tdap/Td Immunization Discontinued 04/16/2019 SARS-COV-2 Immunization Discontinued 07/20/2020, 06/22 Hepatitis B Immunization Discontinued Human Papillomavirus (HPV) Immunization (No Doses Required) Completed Meningococcal Immunization (ACWY) Aged Out No longer eligible based on patient's age to complete this topic Rotavirus Immunization Aged Out No lo nger eligible based on patient's age to complete this topic Procedures Procedure Name Priority Date/Time Associated Diagnosis Comments PATHOLOGY CYTOLOGY SUPERINTENDENT STEVEDORING 02/18/2025 12:00 AM OSTOMY CARE NURSE HUMAN PAPILLOMA VIRUS (HPV) 02/18/2025 12:00 AM OSTOMY CARE NURSE GHANSHYAM SCREENING BILATERAL DIGITAL W CAD Routine 11/19/2019 from Last 3 Months or Most Recently Relevant to Health Maintenance Results * PATHOLOGY CYTOLOGY SUPERINTENDENT STEVEDORING (02/18/2025 12:00 AM OSTOMY CARE NURSE) 02/18/2025 us Teresa Isha Jocelin GERONIMO CNP PATHOLOGY/CYTOLOGY ORDERABLES Final Result Performing Organization Address City/[facility]/ZIP Co de Phone Number SCAN * HUMAN PAPILLOMA VIRUS (HPV) (02/18/2025 12:00 AM OSTOMY CARE NURSE) 02/18/2025 us Provider Scan LAB SEND OUTS Final Result Performing Organization Address City/[facility] Co de Phone Number SCAN * GHANSHYAM SCREENING BILATERAL DIGITAL W CAD (11/19/2019) Anatomical Region Laterality Modality breast Bilateral Mammography Katja Delarosa APRN, CNP IMG MAMMO ORDERABLES Fi nal Result from Last 3 Months or Most Recently Relevant to Health Maintenance Insurance [employer] Care Teams Nursing Clerk Relationship Specialty Start Date End Date Teresa Monreal APRN, CARE PARTNER [address] [facility] [address] [place] [address] PCP - General Advanced Practice Nurse 05/04/20 Katja Delarosa APRN, CARE PARTNER [address] [place] [id number] Obstetrics & Gynecology 05/04/20 Rayne Schilling APRN, CARE PARTNER [address] [facility] [address] [place] [address] Nurse Practitioner Advanced Practice Nurse 08/05/22
--- OUTSIDE RECORDS SUMMARY | 2025-03-26 08:14 | XMS_ITS | Clinical Summary ---
Author Organization [facility] Address [address] [place] [phone] Care Team Providers Care Crm Dynamics Developer Name Role Phone Teresa Monreal NP Primary Care Provider + Roly Ayala MD Unavailable [phone] Allergies Active Allergy Reactions Criticality Noted Date [...] on file Legal Sex Female 2:10 AM MANAGER JAVA Gender Identity Not on file Sexual Orientation [...] 75 09/27/2023 2:41 PM CDT Temperature 37 C (98.6 F) 07/05/2023 2:48 PM CDT Respiratory Rate 18 07/05/2023 2:48 PM CDT Oxygen Saturation 98% 07/05/2023 2:48 PM CDT Inhaled Oxygen Concentration - - Weight 89.4 kg (197 lb) 09/27/2023 2:41 PM CDT Height 166.4 cm (5' 5.5) 09/27/2023 2:41 PM CDT Body Mass Index 32.28 09/27/2023 2:41 PM CDT Plan of Treatment Health Maintenance Due Date Last Done Comments Cervical Cancer Screening 1968 Colon Cancer Screening-Colonoscopy 1968 Depression Screening 1968 Hepatitis C Screening 1968 Hepatitis B Screening 1986 Regular Well Visit/Exam 18-64 1986 Zoster Vaccine (1 of 2) 2018 Influenza Vaccine (#1) 2024 Breast Cancer Screening-Mammogram 07/16/2025 07/16/2024, 05/25/2023, 05/25/2023 DTaP/Tdap/Td Vaccine (2 - Td or Tdap) 04/16/2029 04/16/2019 Pneumococcal vaccine <65 Aged Out No longer eligible based on patient's age to complete this topic Medical Devices Implanted Type Area Rod Filler Device Identifier Shelf Expiration Date Model / Serial / Lot [employer]uy [employer] Attune Fb Tib Base Sz 4 Por [id number] - [id number] Implanted:Qty: 1 on 07/05/2023 by Roly Ayala MD at [facility] Left: Knee [employer] [id number] 05/10/2033 [id number] / / [id number] [employer] Component Femoral Knee Porous Posterior Stabilized Narrow Left Attune Size 5 [place] [employer] [id number] - [id number] Implanted:Qty: 1 on 07/05/2023 by Roly Ayala MD at [facility] Left: Knee [employer] 08/07/2030 [id number] / / [id number] [employer] Attune 7mm Posterior Stabilize Fix Bearing Knee 5 Insert Tibial [id number] - [id number] Implanted:Qty: 1 on 07/05/2023 by Roly Ayala MD at [facility] Left: Knee [employer] [id number] 01/08/2028 [id number] / / [id number] Procedures Procedure Name Priority Date/Time Associated Diagnosis Comments SCREENING MAMMOGRAM BILATERAL W NINO Schedule Routine, Read Routine (OP Routine) 07/16/2024 8:30 AM CDT Encounter for screening mammogram for malignant neoplasm of breast from Last 3 Months or Most Recently Relevant to Health Maintenance Results * Screening Mammogram Bilateral W Nino (07/16/2024 8:30 AM CDT) Anatomical Region Laterality Modality Breast Bilateral Mammography 07/16/2024 4:46 PM CDT Impressions 07/16/2024 4:46 PM CDT There is no mammographic evidence to suggest malignancy. The patient may continue screening mammography as per ACR guidelines. FINAL ASSESSMENT: BI-RADS Category 2: Benign. Electronically signed by: Meron Sellers M.D. Narrative 07/16/2024 4:46 PM CDT EXAMINATION: BILATERAL SCREENING MAMMOGRAM WITH TOMOGRAPHY HISTORY: Screening. COMPARISON(S): 2023, 2021, and 2013 TECHNIQUE: Full-field 2D images and digital tomosynthesis images were obtained. CAD was utilized. BREAST PARENCHYMAL COMPOSITION: There are scattered areas of fibroglandular density. FINDINGS: There are findings consistent with the known breast cysts. There are no suspicious masses. No suspicious calcifications are seen. There is no unexplained architectural distortion. There is no skin thickening seen. There are no mammographically abnormal lymph nodes seen in the axillae or elsewhere. Katja Delarosa TOWEL SEWER IMG MAMMO PROCEDURES Final Res ult from Last 3 Months or Most Recently Relevant to Health Maintenance Insurance 0 (Work) [id number] [id number] CHOICE PL[facility] HMO/PPO [place] [address] [facility] CHOICE PLUS [facility]/PPO Address: [place] [address] , [facility] HMO/PPO Address: [place] [address] Care Teams Crm Dynamics Developer Relationship Specialty Start Date End Date Teresa Monreal NP [address] [facility] [address] [place] [address] PCP - General Nurse Practitioner 09/08/20 Roly Ayala MD [address] [place] [address] Surgeon Orthopedic Surgery 07/05/23
--- OUTSIDE RECORDS SUMMARY | 2025-03-26 08:14 | XMS_ITS | Encounter Summary ---
Author Organization [facility] Address [address] [place] [address] Phone Care Team Providers Care Order Processing Clerk Name Role Phone Teresa Monreal BLOOD DONOR RECRUITER SUPERVISOR, CORPORATE TRAVEL MANAGER Primary Care Prov ider Katja Delarosa APRN, CORPORATE TRAVEL MANAGER Unavailable [phone] Rayne Schilling APRN, CORPORATE TRAVEL MANAGER Unavailable Encounter Details Date Type Department Care Team (Late st Contact Info) Description 01/01/2024 Telephone [facility] - [place] [address] [place] [address] Teresa Monreal BLOOD DONOR RECRUITER SUPERVISOR, CORPORATE TRAVEL MANAGER #[address] [address] Social History Tobacco Use Types Packs/Day Years Used Date Smoking Tobacco: Never Smokeless Tobacco: Never Alcohol Use Standard Drinks/Week Comments Yes 0 (1 standard drink = 0.6 oz pur e alcohol) O[facility]ASSIONALLY [facility] Utilities Answer Date Recorded In the past 12 months has e electric, gas, oil, or water company threatened to shut off services in your home? No 05/25/2023 Social Connection and Isolation Panel Answer Date Recorded In a typical week, how many times do you talk on the phone with family, friends, or neighbors? More than three times a week 05/25/2023 Frequency of Social Gatherin gs with Friends and Family Not on file 05/25/2023 Attends Congregation Services Not on file 05/25 Active Member [...] Total Score - Questions 1-9 0 05/11 [facility] - Occupational [...] on file documented as of this encounter Functional Status documented as of this encounter Mental Status * Question Answer Entry Date Author BP 128/74 01/02/2024 8:06 AM CDT Vladkl andNydia Temp 97.8 01/02/2024 8:06 AM CDT Vladkl andNydia Pulse 74 01/02/2024 8:06 AM CDT Vladkl andNydia SpO2 97 01/02/2024 8:06 AM CDT Kevin andNydia documented in this encounter Miscellaneous Notes * Telephone Encounter [...] re open once patient responds Deana Dorman [facility] - Referrals opt 7 documented in this encounter Plan of Treatment Upcoming Encounters Date Type Department Care Team (Late st Contact Info) Description 07/17/2025 7:30 AM CDT Office Visit [facility] [address] [place] [address] Teresa Monreal APRN, CORPORATE TRAVEL MANAGER #2 [facility] [place] [address] documented as of this encounter Visit Diagnoses Not on filedocumented in this encounter Additional Health Concerns Assessment Noted Time PHQ-9 Depression Total Score: 0 05/25/19 24 9:14 AM PLASTICS DESIGN ENGINEER documented as of this encounter Care Teams Order Processing Clerk Relationship Specialty Start Date End Date Teresa Monreal APRN, CORPORATE TRAVEL MANAGER #[address] [address] PCP - General Advanced Practice Nurse 05/04/20 Katja Delarosa APRN, CORPORATE TRAVEL MANAGER [address] [place] [address] Obstetrics & Gynecology 05/04/20 Rayne Schilling APRN, CORPORATE TRAVEL MANAGER #2 [facility] [address] [place] [address] Nurse Practitioner Advanced Practice Nurse 08/05/22 documented as of this encounter
[2025-03-26 08:15] VITALS: BP 104/63; PULSE 88; RESP 16; TEMP 36.9; O2SAT 98
--- NOTE | 2025-03-26 08:32 | ED.URI ---
HPI - URI/Sore Throat General Chief Complaint: Ear Stated Complaint: Cold/Ears Time Seen by Provider: 03/26/25 08:16 Source: patient and RN notes reviewed Mode of arrival: ambulatory Limitations: no limitations History of Present Illness HPI Narrative: 54-year-old female patient presents today complaining of 5 day history of nasal congestion and sinus pressure as well as bilateral ear pressure that is worse at night, right greater than left. Denies fever, cough, sore throat. She has been taking DayQuil and NyQuil with mild relief. Related Data Home Medications ?Medication ?Instructions ?Recorded ?Confirmed ?Last Taken ?Type metformin 500 mg tablet,extended mg PO 03/26/25 Unknown History release 24 hr progesterone micronized 200 mg mg 03/26/25 Unknown History capsule spironolactone 100 mg tablet mg 03/26/25 Unknown History thyroid (pork) 90 mg tablet (LABORER STEEL HANDLING mg 03/26/25 Unknown History Thyroid) tirzepatide 5 mg/0.5 mL mg subcut 03/26/25 Unknown History subcutaneous pen injector (Mounjaro) tirzepatide 7.5 mg/0.5 mL mg subcut 03/26/25 Unknown History subcutaneous pen injector (Mounjaro) Allergies Allergy/AdvReac Type Severity Reaction Status Date / Time acetaminophen (From Percocet) Allergy Unknown Unknown Verified 03/26/25 08:15 oxycodone (From Percocet) Allergy Unknown Unknown Verified 03/26/25 08:15 [facility] Past Medical History Medical History Sinusitis COVID-19 05/2019 Right arm fracture surgical repair Surgical History Surgical History Previous section Total knee replacement status right Family History Family History Other Family history non-contributory Social History Social History Smoking status: Never smoker Alcohol intake: current Substance use type: does not use Living arrangements: with family Gender identity (if verbalized by the patient): Female Comments At time of signature, I have reviewed and agree with nursing past medical, surgical, social and family history unless otherwise noted. Please see nursing chart for further information. There is no relevant family history pertinent to the presenting complaint Exam Narrative: GENERAL: Well-appearing, well-nourished, and in no acute distress. HEAD: Normocephalic, atraumatic. EYES: EOMI. No redness or drainage. Conjunctivae normal. ENT: Mucous membranes pink and moist. Nares congested. No rhinorrhea. Left TM normal. Right TM bulging with clear serous effusion without evidence of bacterial infection. Throat normal. Uvula midline. NECK: Normal AROM. Supple. No lymphadenopathy. CHEST: No respiratory distress. Clear to auscultation. HEART: Regular rate and rhythm. No murmur appreciated. EXTREMITIES: Normal range of motion. No edema. SKIN: Warm, dry, no rash. Capillary refill normal. Normal skin turgor. NEURO: No focal deficits. Alert and oriented x3. Gait steady. PSYCH: Normal affect. No signs of depression or anxiety. Course Course Level of Care: Express Care Visit Vital Signs Vital signs: Vital Signs Temperature 98.4 F 03/26/25 08:15 Pulse Rate 88 03/26/25 08:15 Respiratory Rate 16 03/26/25 08:15 Blood Pressure 104/63 03/26/25 08:15 Pulse Oximetry 98 03/26/25 08:15 Temperature 98.4 F 03/26/25 08:15 Pulse Rate 88 03/26/25 08:15 Respiratory Rate 16 03/26/25 08:15 Blood Pressure 104/63 03/26/25 08:15 Pulse Oximetry 98 03/26/25 08:15 Reviewed [facility] MDM Narrative Medical decision making narrative: 54-year-old female patient presents today complaining of 5 day history of nasal congestion and sinus pressure as well as bilateral ear pressure that is worse at night, right greater than left. Denies fever, cough, sore throat. She has been taking DayQuil and NyQuil with mild relief. Upon exam, patient has mild nasal congestion. Left TM normal. Right TM bulging with clear serous effusion without bacterial infection. Recommend patient start intranasal steroid and decongestant to help right ear pressure. Symptoms likely viral in etiology. Discussed [id number] medication use and duration of illness. No prescription medications indicated at this time. Anticipatory guidance given. Patient agrees with plan. Vital signs stable. Differential Diagnosis Differential Diagnosis: URI, AOM, otitis externa, ruptured TM, serous otitis, sinusitis Critical Care Time Critical Care Time Critical Care Time: No Discharge Plan Discharge Clinical Impression: Upper respiratory infection, Acute serous otitis media of right ear Patient Disposition: Home Condition: Stable Instructions: Upper Respiratory Infection (DC), Fluid In The Ear (Serous Otitis Media) (ED) Additional Instructions: You have a collection of fluid behind your right ear drum with no evidence of infection at this time. Your symptoms are likely due to a viral illness, which is not treated with antibiotics. Virus symptoms can last for up to 7-10days. Take Tylenol or ibuprofen for pain or fever. Consider starting a nasal steroid such as Flonase in a decongestant such as Sudafed to help with your ear symptoms and nasal congestion. Rest and stay hydrated. Follow up with your PCP in 5-7 days if symptoms are not improving. Go to the ER immediately if you develop shortness of breath, difficulty swallowing, or any other concerning symptoms. Patient Language: Serbian Prescriptions: No Action spironolactone 100 mg tablet progesterone micronized 200 mg capsule metformin 500 mg tablet extended release 24 hr PO thyroid (pork) [LABORER STEEL HANDLING Thyroid] 90 mg tablet Mounjaro 5 mg/0.5 mL pen injector SUBCUT Mounjaro 7.5 mg/0.5 mL pen injector SUBCUT Follow-up/Referrals: UNKNOWN,DOCTOR [Primary Care Provider] Time of Disposition: 08:36
== END 2025-03-26 08:42 | disposition home or self-care (01) ==
PROVIDERS: Emergency Provider Nurse Practitioner
DX: J06.9 Acute upper respiratory infection, unspecified (principal); H65.01 Acute serous otitis media, right ear; Z86.16 Personal history of COVID-19
CPT/HCPCS: 99211; G0463